=== PATIENT | male | born 1940 | race African-American/Black ===

== ENCOUNTER 2018-06-30 12:29 | Inpatient (IN) | payer MEDICARE, OTHER ==
[2018-06-30] MEDS: SOD CHLORIDE 0.9% 1,000 ML IV ×2 (13:22→19:08)
[2018-06-30 13:23] LABS: ABNORMAL IP MESSAGE 1; HEMATOCRIT 35.7 % (42.0-52.0); HEMOGLOBIN 10.1 g/dl (14.0-18.0); MEAN CORPUSCULAR HEMOGLOBIN 29.5 pg (29.0-33.0); MEAN CORPUSCULAR HGB CONC 28.3 g/dl (32.0-37.0); MEAN CORPUSCULAR VOLUME 104.4 fl (82.0-101.0); PLATELET COUNT 64 10^3/UL (140-415); POSITIVE DIFF @See below; RED BLOOD COUNT 3.42 10^6/ul (4.70-6.10); RED CELL DISTRIBUTION WIDTH 15.2 % (11.5-14.5)
[2018-06-30 13:23] LABS: WHITE BLOOD COUNT 9.8 10^3/ul (4.8-10.8)
[2018-06-30 13:27] LABS: ADD MAN DIFF? YES
[2018-06-30 13:55] LABS: ANISOCYTOSIS 1+ (0-0); BAND NEUTROPHILS #M 1.9 10^3/ul (0.0-0.6); BAND NEUTROPHILS % (M) 20 % (0-4); LYMPHOCYTES #M 0.6 10^3/ul (0.8-2.9); LYMPHOCYTES % (M) 7 % (15-51); MICROCYTOSIS 1+ (0-0); MONOCYTE #M 0.4 10^3/ul (0.3-0.9); MONOCYTES % (M) 5 % (0-11); PLATELET ESTIMATE DECREASED; PLATELET MORPHOLOGY COMMENT @See below; POIKILOCYTOSIS 1+ (0-0); POLYCHROMASIA 1+ (0-0); SEG NEUT #M 6.9 10^3/ul (1.6-7.5); SEGMENTED NEUTROPHILS (M) % 68 % (39-77); SMUDGE%M 1 % (0-0); STOMATOCYTES 1+ (0-0)
[2018-06-30 13:57] LABS: ANION GAP -1 (5-13); BLOOD UREA NITROGEN 69 mg/dl (7-20); CARBON DIOXIDE 37 mmol/L (21-31); CHLORIDE 134 mmol/L (97-110); CREATININE 1.88 mg/dl (0.61-1.24); GLUCOSE 171 mg/dl (70-220); POTASSIUM 4.1 mmol/L (3.5-5.1)
[2018-06-30 14:09] LABS: TROPONIN-I 0.024 ng/ml (0.000-0.120)
[2018-06-30 14:10] LABS: SODIUM 170 mmol/L (135-144)
[2018-06-30] MEDS ORDERED: SOD CHLORIDE 0.9% 1,000 ML IV (14:30)
[2018-06-30] MEDS ORDERED: ONDANSETRON 4 MG INJ IV (15:00)
[2018-06-30] MEDS ORDERED: ACETAMINOPHEN 325 MG TAB PO (15:00)
[2018-06-30 15:45] LABS: INR 1.15; PROTIME 14.9 Sec (11.9-14.9); PT RATIO 1.2
[2018-06-30 15:46] LABS: PARTIAL THROMBOPLASTIN TIME 38.9 Sec (23.0-35.0)
[2018-06-30] MEDS ORDERED: LORAZEPAM 2 MG INJ IV (20:00)
[2018-06-30] MEDS: IPRATROPIUM (NEB) 0.5 MG/2.5 ML AMP HHN (20:24)
[2018-06-30] MEDS: ACETAMINOPHEN 650MG/20.3ML CUP GTB (23:07)
[2018-06-30] MEDS: METOPROLOL 50 MG TAB GTB (23:42)
[2018-07-01] MEDS ORDERED: IPRATROPIUM (NEB) 0.5 MG/2.5 ML AMP HHN (01:00)
[2018-07-01] MEDS: IPRATROPIUM (NEB) 0.5 MG/2.5 ML AMP HHN ×4 (01:39→21:01)
[2018-07-01] MEDS: ACCU-CHEK XX (02:00)
[2018-07-01] MEDS: PANTOPRAZOLE 40 MG INJ IV (06:23)
[2018-07-01 06:51] LABS: ABNORMAL IP MESSAGE 1; HEMATOCRIT 34.4 % (42.0-52.0); HEMOGLOBIN 9.6 g/dl (14.0-18.0); MEAN CORPUSCULAR HEMOGLOBIN 29.2 pg (29.0-33.0); MEAN CORPUSCULAR HGB CONC 27.9 g/dl (32.0-37.0); MEAN CORPUSCULAR VOLUME 104.6 fl (82.0-101.0); PLATELET COUNT 54 10^3/UL (140-415); POSITIVE DIFF @See below; RED BLOOD COUNT 3.29 10^6/ul (4.70-6.10); RED CELL DISTRIBUTION WIDTH 15.1 % (11.5-14.5)
[2018-07-01 06:51] LABS: WHITE BLOOD COUNT 8.6 10^3/ul (4.8-10.8)
[2018-07-01 06:54] LABS: ADD MAN DIFF? YES
[2018-07-01 07:26] LABS: ANION GAP -3 (5-13); BLOOD UREA NITROGEN 64 mg/dl (7-20); CALCIUM 9.2 mg/dl (8.4-10.2); CARBON DIOXIDE 33 mmol/L (21-31); CHLORIDE 142 mmol/L (97-110); CREATININE 1.64 mg/dl (0.61-1.24); GLUCOSE 92 mg/dl (70-220); POTASSIUM 3.9 mmol/L (3.5-5.1)
[2018-07-01 07:28] LABS: B-TYPE NATRIURETIC PEPTIDE 530 PG/ML (0-450)
[2018-07-01 07:29] LABS: SODIUM 172 mmol/L (135-144)
[2018-07-01 08:03] LABS: ANISOCYTOSIS 1+ (0-0); BAND NEUTROPHILS #M 2.4 10^3/ul (0.0-0.6); BAND NEUTROPHILS % (M) 28 % (0-4); EOSINOPHILS % (M) 1 % (0-7); ERYTHROBLAST% (NRBC) (M) 2 % (0-0); GIANT THROMBO% (M) 2 % (0-0); LYMPHOCYTES #M 1.3 10^3/ul (0.8-2.9); LYMPHOCYTES % (M) 16 % (15-51); MONOCYTE #M 0.1 10^3/ul (0.3-0.9); MONOCYTES % (M) 2 % (0-11); PLATELET ESTIMATE DECREASED; REACTIVE LYMPHOCYTES% (M) 1 % (0-0); SEG NEUT #M 4.7 10^3/ul (1.6-7.5); SEGMENTED NEUTROPHILS (M) % 52 % (39-77); SMUDGE%M 1 % (0-0)
[2018-07-01] MEDS: CHOLECALCIFEROL 1,000 UNIT TAB PO (09:25)
[2018-07-01] MEDS: SOD CHLORIDE 0.9% 1,000 ML IV (09:25)
[2018-07-01] MEDS: predniSONE 5 MG TAB PO (09:25)
[2018-07-01] MEDS: MULTIVITAMINS THERAPEUTIC TAB PO (09:25)
[2018-07-01] MEDS: DONEPEZIL 10 MG TAB PO (09:26)
[2018-07-01] MEDS: METOPROLOL 25 MG TAB PO ×2 (09:26→21:46)
[2018-07-01] MEDS: INSULIN ASPART [NOVOLOG] 3 ML PEN SC ×4 (09:29→21:00)
[2018-07-01] MEDS: INSULIN GLARGINE [LANTus] (100 UNITS/ML) SYG SC (09:30)
[2018-07-01] MEDS ORDERED: VITAMIN A & D 5 GM OINT PACKET TOP (10:34)
[2018-07-01] MEDS: DEXTROSE 5% 1,000 ML IV (11:55)
[2018-07-01 13:55] LABS: CREATININE,URINE RANDOM 74.24 mg/dl (20-370)
[2018-07-01 13:58] LABS: SODIUM,URINE RANDOM < 13 mmol/L (30-90)
[2018-07-01 14:34] LABS: OSMOLALITY,URINE 513 mOsm/kg (250-1200)
[2018-07-01 18:27] LABS: ANION GAP -2 (5-13); BLOOD UREA NITROGEN 58 mg/dl (7-20); CALCIUM 9.2 mg/dl (8.4-10.2); CARBON DIOXIDE 34 mmol/L (21-31); CHLORIDE 140 mmol/L (97-110); GLUCOSE 135 mg/dl (70-220); POTASSIUM 3.6 mmol/L (3.5-5.1)
[2018-07-01 18:39] LABS: SODIUM 172 mmol/L (135-144)
[2018-07-01] MEDS: SENNA TAB PO (21:46)
[2018-07-02] MEDS: ACCU-CHEK XX (02:00)
[2018-07-02] MEDS: IPRATROPIUM (NEB) 0.5 MG/2.5 ML AMP HHN ×2 (02:42→07:52)
[2018-07-02 05:33] LABS: WHITE BLOOD COUNT 8.3 10^3/ul (4.8-10.8)
[2018-07-02 05:33] LABS: ABNORMAL IP MESSAGE 1; HEMATOCRIT 33.4 % (42.0-52.0); HEMOGLOBIN 9.2 g/dl (14.0-18.0); MEAN CORPUSCULAR HEMOGLOBIN 28.7 pg (29.0-33.0); MEAN CORPUSCULAR HGB CONC 27.5 g/dl (32.0-37.0); POSITIVE DIFF @See below; RED BLOOD COUNT 3.21 10^6/ul (4.70-6.10); RED CELL DISTRIBUTION WIDTH 14.9 % (11.5-14.5)
[2018-07-02 05:34] LABS: PLATELET COUNT 68 10^3/UL (140-415)
[2018-07-02 05:35] LABS: ADD MAN DIFF? YES
[2018-07-02 06:07] LABS: B-TYPE NATRIURETIC PEPTIDE 832 PG/ML (0-450)
[2018-07-02 06:16] LABS: ANION GAP -5 (5-13); BLOOD UREA NITROGEN 54 mg/dl (7-20); CALCIUM 9.7 mg/dl (8.4-10.2); CARBON DIOXIDE 38 mmol/L (21-31); CHLORIDE 140 mmol/L (97-110); CREATININE 1.78 mg/dl (0.61-1.24); GLUCOSE 123 mg/dl (70-220); POTASSIUM 3.2 mmol/L (3.5-5.1)
[2018-07-02 06:19] LABS: SODIUM 173 mmol/L (135-144)
[2018-07-02] MEDS: PANTOPRAZOLE 40 MG INJ IV (06:58)
[2018-07-02] MEDS ORDERED: ETOMIDATE 20 MG INJ (07:00)
[2018-07-02] MEDS ORDERED: SUCCINYLCHOLINE CHLORIDE 100 MG/5 ML SYG IV (07:00)
[2018-07-02 07:38] LABS: ANISOCYTOSIS 1+ (0-0); BAND NEUTROPHILS #M 0.3 10^3/ul (0.0-0.6); BAND NEUTROPHILS % (M) 4 % (0-4); LYMPHOCYTES #M 1.7 10^3/ul (0.8-2.9); LYMPHOCYTES % (M) 21 % (15-51); MICROCYTOSIS 1+ (0-0); MONOCYTES % (M) 1 % (0-11); PLATELET ESTIMATE DECREASED; POLYCHROMASIA 2+ (0-0); SEG NEUT #M 6.2 10^3/ul (1.6-7.5); SEGMENTED NEUTROPHILS (M) % 74 % (39-77); SMUDGE%M 35 % (0-0)
[2018-07-02] MEDS: DEXTROSE 5% 1,000 ML IV ×2 (08:07→22:26)
[2018-07-02] MEDS: INSULIN ASPART [NOVOLOG] 3 ML PEN SC ×5 (08:10→23:55)
[2018-07-02] MEDS: INSULIN GLARGINE [LANTus] (100 UNITS/ML) SYG SC (08:16)
[2018-07-02] MEDS: ACETAMINOPHEN 650MG/20.3ML CUP GTB (08:35)
[2018-07-02] MEDS: DONEPEZIL 10 MG TAB PO (08:36)
[2018-07-02] MEDS: MULTIVITAMINS THERAPEUTIC TAB PO (08:36)
[2018-07-02] MEDS: predniSONE 5 MG TAB PO (08:36)
[2018-07-02] MEDS: CHOLECALCIFEROL 1,000 UNIT TAB PO (08:36)
[2018-07-02] MEDS: METOPROLOL 25 MG TAB PO (08:39)
[2018-07-02 11:34] LABS: MAGNESIUM 3.3 mg/dl (1.7-2.5)
[2018-07-02 11:35] LABS: ALANINE AMINOTRANSFERASE 52 IU/L (13-69); ALBUMIN 2.7 g/dl (3.3-4.9); ALKALINE PHOSPHATASE 128 IU/L (42-121); ASPARTATE AMINO TRANSFERASE 53 IU/L (15-46); BILIRUBIN,INDIRECT 0.3 mg/dl (0-1.1); BILIRUBIN,TOTAL 0.3 mg/dl (0.2-1.3); TOTAL PROTEIN 6.6 g/dl (6.1-8.1)
[2018-07-02] MEDS ORDERED: CEFTRIAXONE 1 GM/50 ML (PMX) 50 ML IVPB (12:00)
[2018-07-02] MEDS ORDERED: VANCOMYCIN IV PER PHARMACY XX (12:00)
[2018-07-02 12:21] LABS: CHOLESTEROL 136 mg/dl (100-200)
[2018-07-02 12:21] LABS: CHOL/HDL RATIO 4.6 RATIO; HDL CHOLESTEROL 29 mg/dl (31-75); LDL CHOLESTEROL,CALCULATED 84 mg/dl; TRIGLYCERIDES 115 mg/dl (0-149)
[2018-07-02] MEDS ORDERED: HEPARIN 5,000 UNIT/0.5 ML VIAL SC (13:00)
[2018-07-02] MEDS: PIPER-TAZO 2.25 GM (PMX) 50 ML IVPB ×3 (13:13→23:52)
[2018-07-02] MEDS: POTASSIUM CHLORIDE 100 ML IVPB ×2 (13:13→15:45)
[2018-07-02] MEDS ORDERED: METHYLPREDNISOLONE 125 MG INJ (13:41)
[2018-07-02] MEDS: hydrALAzine 20 MG INJ IV (13:51)
[2018-07-02] MEDS: METHYLPREDNISOLONE 125 MG INJ IV (13:53)
[2018-07-02] MEDS ORDERED: VANCOMYCIN 1.5 GM in SOD CHLORIDE 0.9% 250 ML IVPB (14:00)
[2018-07-02] MEDS ORDERED: PIPER-TAZO 3.375 GM IV (PMX) 100 ML IVPB (14:00)
[2018-07-02 14:09] LABS: AADO2 Arterial 144.1 mmHg (7.0-24.0); Allen Test ACCEPTAB; Arterial Base Excess 5.1 mmol/L (-3.0-3); Arterial Blood Gas Oxygen Sat 91.2 mmHG (95.0-100.0); Arterial COHb 0.4 % (0.0-3.0); Arterial Fraction of Oxyhgb 90.6 % (93.0-99.0); Arterial HCO3 39.1 mmol/L (22.0-26.0); Arterial MetHb 0.3 % (0.0-1.5); Arterial Total Hemglobin 12.4 g/dl (12.0-18.0); Arterial pCO2 133.9 mmhg (35-45); MODE MASK - BIPAP; Site Left Radial
[2018-07-02] MEDS: LACTATED RINGER'S 1,000 ML IV ×2 (14:30→17:59)
[2018-07-02] MEDS ORDERED: FENTAnyl 50 MCG/ML VIAL (14:37)
[2018-07-02] MEDS ORDERED: NORepinephrine 8MG/250 ML (PMX 250 ML (15:03)
[2018-07-02 15:26] LABS: ALANINE AMINOTRANSFERASE 42 IU/L (13-69); ALBUMIN 2.5 g/dl (3.3-4.9); ALBUMIN/GLOBULIN RATIO 0.71; ALKALINE PHOSPHATASE 108 IU/L (42-121); ANION GAP -4 (5-13); ASPARTATE AMINO TRANSFERASE 42 IU/L (15-46); BILIRUBIN,INDIRECT 0.4 mg/dl (0-1.1); BILIRUBIN,TOTAL 0.4 mg/dl (0.2-1.3); BLOOD UREA NITROGEN 53 mg/dl (7-20); CALCIUM 9.2 mg/dl (8.4-10.2); CARBON DIOXIDE 36 mmol/L (21-31); CHLORIDE 137 mmol/L (97-110); CREATININE 2.05 mg/dl (0.61-1.24); GLUCOSE 162 mg/dl (70-220); POTASSIUM 3.8 mmol/L (3.5-5.1)
[2018-07-02 15:28] LABS: SODIUM 169 mmol/L (135-144)
[2018-07-02] MEDS: LACTATED RINGER'S 500 ML IV ×3 (15:30→16:41)
[2018-07-02 15:32] LABS: LACTIC ACID 2.4 mmol/L (0.5-2.0)
[2018-07-02] MEDS: FENTAnyl (DRIP) 1000 mcg/100mL 100 ML IV (15:36)
[2018-07-02] MEDS: FENTAnyl 50 MCG/ML VIAL IV (15:40)
[2018-07-02] MEDS: HYDROCORTISONE 100 MG INJ IV ×2 (15:45→21:30)
[2018-07-02 15:48] LABS: CREATINE KINASE 429 IU/L (23-200)
[2018-07-02 16:02] LABS: CK INDEX 0.4; CK-MB 1.92 ng/ml (0.0-2.4); TROPONIN-I 0.036 ng/ml (0.000-0.120)
[2018-07-02 16:53] LABS: AADO2 Arterial 532.3 mmHg (7.0-24.0); Allen Test ACCEPTAB; Arterial Base Excess 4.8 mmol/L (-3.0-3); Arterial Blood Gas Oxygen Sat 98.5 mmHG (95.0-100.0); Arterial COHb 0.2 % (0.0-3.0); Arterial Fraction of Oxyhgb 97.5 % (93.0-99.0); Arterial HCO3 28.9 mmol/L (22.0-26.0); Arterial MetHb 0.8 % (0.0-1.5); Arterial Total Hemglobin 5.4 g/dl (12.0-18.0); Arterial pCO2 40.3 mmhg (35-45); MODE VENT - AC; Site Right Radial
[2018-07-02] MEDS: NORepinephrine 8MG/250 ML (PMX 250 ML IV (18:46)
[2018-07-02] MEDS: IPRATROPIUM (HFA) 12.9 GM INHALER INH (20:35)
[2018-07-02 20:46] LABS: LACTIC ACID 1.6 mmol/L (0.5-2.0)
[2018-07-02 20:55] LABS: ANION GAP -3 (5-13); BLOOD UREA NITROGEN 55 mg/dl (7-20); CALCIUM 9.4 mg/dl (8.4-10.2); CARBON DIOXIDE 33 mmol/L (21-31); CHLORIDE 135 mmol/L (97-110); CREATININE 1.86 mg/dl (0.61-1.24); GLUCOSE 163 mg/dl (70-220); POTASSIUM 3.5 mmol/L (3.5-5.1)
[2018-07-02 20:58] LABS: SODIUM 165 mmol/L (135-144)
[2018-07-02] MEDS: SENNA TAB PO (21:09)
[2018-07-02] MEDS ORDERED: GLUCOSE GEL 15 GRAM TUBE BUCCAL (22:30)
[2018-07-02] MEDS ORDERED: DEXTROSE 50% 50 ML SYRINGE IV (22:30)
[2018-07-02] MEDS ORDERED: GLUCAGON 1 MG INJ IM (22:30)
[2018-07-02] MEDS ORDERED: GLUCOSE GEL 15 GRAM TUBE PO ×2 (22:30)
[2018-07-03] MEDS: FENTAnyl (DRIP) 1000 mcg/100mL 100 ML IV ×2 (00:02→11:18)
[2018-07-03] MEDS: IPRATROPIUM (HFA) 12.9 GM INHALER INH ×4 (01:48→19:51)
[2018-07-03] MEDS ORDERED: ACCU-CHEK XX (02:00)
[2018-07-03 05:00] LABS: AADO2 Arterial 191.1 mmHg (7.0-24.0); Allen Test ACCEPTAB; Arterial Base Excess 3.9 mmol/L (-3.0-3); Arterial Blood Gas Oxygen Sat 92.6 mmHG (95.0-100.0); Arterial COHb 0.3 % (0.0-3.0); Arterial HCO3 26.6 mmol/L (22.0-26.0); Arterial MetHb 0.3 % (0.0-1.5); Arterial Total Hemglobin 8.1 g/dl (12.0-18.0); Arterial pCO2 32.2 mmhg (35-45); MODE VENT - AC; Site Right Radial
[2018-07-03 05:16] LABS: WHITE BLOOD COUNT 8.4 10^3/ul (4.8-10.8)
[2018-07-03 05:16] LABS: ABNORMAL IP MESSAGE 1; HEMATOCRIT 25.9 % (42.0-52.0); HEMOGLOBIN 7.6 g/dl (14.0-18.0); MEAN CORPUSCULAR HEMOGLOBIN 29.6 pg (29.0-33.0); MEAN CORPUSCULAR HGB CONC 29.3 g/dl (32.0-37.0); MEAN CORPUSCULAR VOLUME 100.8 fl (82.0-101.0); MEAN PLATELET VOLUME 15.6 fl (7.4-10.4); PLATELET COUNT 64 10^3/UL (140-415); POSITIVE DIFF @See below; RED BLOOD COUNT 2.57 10^6/ul (4.70-6.10); RED CELL DISTRIBUTION WIDTH 14.8 % (11.5-14.5)
[2018-07-03 05:21] LABS: ADD MAN DIFF? YES
[2018-07-03 05:34] LABS: PROTIME 15.4 Sec (11.9-14.9); PT RATIO 1.2
[2018-07-03 05:35] LABS: PARTIAL THROMBOPLASTIN TIME 42.8 Sec (23.0-35.0)
[2018-07-03 05:47] LABS: MAGNESIUM 2.9 mg/dl (1.7-2.5)
[2018-07-03 05:47] LABS: PHOSPHORUS 2.3 mg/dl (2.5-4.9)
[2018-07-03 05:54] LABS: LACTIC ACID 2.6 mmol/L (0.5-2.0)
[2018-07-03 05:56] LABS: FREE THYROXINE INDEX (Calc) 3.81 ug/ml (0.65-3.89); T3 UPTAKE 42.3 % (23.5-40.5)
[2018-07-03] MEDS: INSULIN ASPART [NOVOLOG] 3 ML PEN SC ×4 (06:00→23:34)
[2018-07-03] MEDS: PIPER-TAZO 2.25 GM (PMX) 50 ML IVPB ×4 (06:02→23:32)
[2018-07-03] MEDS: HYDROCORTISONE 100 MG INJ IV ×3 (06:02→21:06)
[2018-07-03] MEDS: PANTOPRAZOLE 40 MG INJ IV (06:02)
[2018-07-03 06:03] LABS: ALANINE AMINOTRANSFERASE 39 IU/L (13-69); ALBUMIN 2.3 g/dl (3.3-4.9); ALBUMIN/GLOBULIN RATIO 0.67; ALKALINE PHOSPHATASE 98 IU/L (42-121); ANION GAP 2 (5-13); ASPARTATE AMINO TRANSFERASE 35 IU/L (15-46); BILIRUBIN,INDIRECT 0.6 mg/dl (0-1.1); BILIRUBIN,TOTAL 0.6 mg/dl (0.2-1.3); BLOOD UREA NITROGEN 55 mg/dl (7-20); CALCIUM 9.4 mg/dl (8.4-10.2); CARBON DIOXIDE 29 mmol/L (21-31); CHLORIDE 135 mmol/L (97-110); CREATININE 1.89 mg/dl (0.61-1.24); GLUCOSE 199 mg/dl (70-220); POTASSIUM 3.2 mmol/L (3.5-5.1); TOTAL PROTEIN 5.7 g/dl (6.1-8.1)
[2018-07-03 06:04] LABS: CK-MB 1.01 ng/ml (0.0-2.4); TROPONIN-I 0.051 ng/ml (0.000-0.120)
[2018-07-03 06:11] LABS: SODIUM 166 mmol/L (135-144)
[2018-07-03 06:32] LABS: CK INDEX 0.4; CREATINE KINASE 246 IU/L (23-200)
[2018-07-03 07:14] LABS: ANISOCYTOSIS 1+ (0-0); BAND NEUTROPHILS #M 0.7 10^3/ul (0.0-0.6); BAND NEUTROPHILS % (M) 9 % (0-4); ERYTHROBLAST% (NRBC) (M) 1 % (0-0); GIANT THROMBO% (M) 1 % (0-0); LYMPHOCYTES #M 0.5 10^3/ul (0.8-2.9); LYMPHOCYTES % (M) 7 % (15-51); MONOCYTE #M 0.1 10^3/ul (0.3-0.9); MONOCYTES % (M) 2 % (0-11); PLATELET ESTIMATE DECREASED; POLYCHROMASIA 1+ (0-0); SEG NEUT #M 6.9 10^3/ul (1.6-7.5); SEGMENTED NEUTROPHILS (M) % 82 % (39-77); SMUDGE%M 29 % (0-0)
[2018-07-03] MEDS: DEXTROSE 5% 1,000 ML IV ×5 (08:00→23:48)
[2018-07-03] MEDS: POTASSIUM PHOSPHATE 30 MM in SOD CHLORIDE 0.9% 250 ML IVPB (08:08)
[2018-07-03] MEDS: DONEPEZIL 10 MG TAB PO (08:09)
[2018-07-03] MEDS: CHOLECALCIFEROL 1,000 UNIT TAB PO (08:09)
[2018-07-03] MEDS: PATIENT'S OWN MEDICATION PO (08:09)
[2018-07-03] MEDS: MULTIVITAMINS THERAPEUTIC TAB PO (08:09)
[2018-07-03] MEDS: INSULIN GLARGINE [LANTus] (100 UNITS/ML) SYG SC (08:30)
[2018-07-03] MEDS ORDERED: NON-FORMULARY/PATIENT OWN MED (Abiraterone Acetate (Zytiga) 1,000 MG) PO (09:00)
[2018-07-03] MEDS: LACTATED RINGER'S 500 ML IV (11:21)
[2018-07-03] MEDS ORDERED: VANCOMYCIN 1 GM 250 ML IVPB (14:00)
[2018-07-03 14:44] LABS: ANION GAP 2 (5-13); BLOOD UREA NITROGEN 57 mg/dl (7-20); CALCIUM 8.9 mg/dl (8.4-10.2); CARBON DIOXIDE 29 mmol/L (21-31); CHLORIDE 135 mmol/L (97-110); CREATININE 1.89 mg/dl (0.61-1.24); GLUCOSE 160 mg/dl (70-220); MAGNESIUM 2.9 mg/dl (1.7-2.5); POTASSIUM 3.6 mmol/L (3.5-5.1)
[2018-07-03 14:52] LABS: SODIUM 166 mmol/L (135-144)
[2018-07-03 14:54] LABS: LACTIC ACID 2.2 mmol/L (0.5-2.0)
[2018-07-03 15:05] LABS: PHOSPHORUS 5.5 mg/dl (2.5-4.9)
[2018-07-03] MEDS: MUPIROCIN 2% 22 GM OINT TOP (21:06)
[2018-07-03] MEDS: SENNA TAB PO (21:06)
[2018-07-04] MEDS: FENTAnyl (DRIP) 1000 mcg/100mL 100 ML IV ×2 (00:23→16:32)
[2018-07-04] MEDS: IPRATROPIUM (HFA) 12.9 GM INHALER INH ×4 (01:49→19:10)
[2018-07-04 05:22] LABS: Allen Test ACCEPTAB; Arterial Base Excess 2.6 mmol/L (-3.0-3); Arterial COHb 0.1 % (0.0-3.0); Arterial Fraction of Oxyhgb 97.5 % (93.0-99.0); Arterial HCO3 27.8 mmol/L (22.0-26.0); Arterial MetHb 0.4 % (0.0-1.5); Arterial Total Hemglobin 8.2 g/dl (12.0-18.0); Arterial pCO2 46.5 mmhg (35-45); MODE VENT - AC; Site Right Radial
[2018-07-04 05:23] LABS: ADD MAN DIFF? NO
[2018-07-04 05:38] LABS: ABNORMAL IP MESSAGE 1; HEMATOCRIT 24.6 % (42.0-52.0); HEMOGLOBIN 7.1 g/dl (14.0-18.0); MEAN CORPUSCULAR HEMOGLOBIN 29.3 pg (29.0-33.0); MEAN CORPUSCULAR HGB CONC 28.9 g/dl (32.0-37.0); MEAN CORPUSCULAR VOLUME 101.7 fl (82.0-101.0); PLATELET COUNT 64 10^3/UL (140-415); POSITIVE DIFF @See below; RED BLOOD COUNT 2.42 10^6/ul (4.70-6.10); RED CELL DISTRIBUTION WIDTH 14.8 % (11.5-14.5)
[2018-07-04 05:38] LABS: WHITE BLOOD COUNT 7.9 10^3/ul (4.8-10.8)
[2018-07-04 05:56] LABS: ALANINE AMINOTRANSFERASE 38 IU/L (13-69); ALBUMIN 2.1 g/dl (3.3-4.9); ALBUMIN/GLOBULIN RATIO 0.67; ALKALINE PHOSPHATASE 84 IU/L (42-121); ANION GAP 6 (5-13); ASPARTATE AMINO TRANSFERASE 25 IU/L (15-46); BILIRUBIN,INDIRECT 0.2 mg/dl (0-1.1); BILIRUBIN,TOTAL 0.2 mg/dl (0.2-1.3); BLOOD UREA NITROGEN 57 mg/dl (7-20); CALCIUM 8.8 mg/dl (8.4-10.2); CARBON DIOXIDE 27 mmol/L (21-31); CHLORIDE 127 mmol/L (97-110); CREATININE 1.77 mg/dl (0.61-1.24); GLUCOSE 199 mg/dl (70-220); POTASSIUM 3.3 mmol/L (3.5-5.1); SODIUM 160 mmol/L (135-144); TOTAL PROTEIN 5.2 g/dl (6.1-8.1)
[2018-07-04 05:58] LABS: MAGNESIUM 2.9 mg/dl (1.7-2.5)
[2018-07-04 05:58] LABS: PHOSPHORUS 4.4 mg/dl (2.5-4.9)
[2018-07-04] MEDS: DEXTROSE 5% 1,000 ML IV ×4 (06:00→23:43)
[2018-07-04] MEDS: PANTOPRAZOLE 40 MG INJ IV (06:08)
[2018-07-04] MEDS: PIPER-TAZO 2.25 GM (PMX) 50 ML IVPB ×4 (06:08→23:40)
[2018-07-04] MEDS: HYDROCORTISONE 100 MG INJ IV (06:09)
[2018-07-04] MEDS: INSULIN ASPART [NOVOLOG] 3 ML PEN SC ×4 (06:15→23:43)
[2018-07-04] MEDS: POTASSIUM CHLORIDE 100 ML IVPB ×2 (08:11→10:25)
[2018-07-04] MEDS: CHOLECALCIFEROL 1,000 UNIT TAB PO (09:02)
[2018-07-04] MEDS: MUPIROCIN 2% 22 GM OINT TOP ×2 (09:02→21:21)
[2018-07-04] MEDS: MULTIVITAMINS THERAPEUTIC TAB PO (09:02)
[2018-07-04] MEDS: PATIENT'S OWN MEDICATION PO (09:02)
[2018-07-04] MEDS: DONEPEZIL 10 MG TAB PO (09:02)
[2018-07-04] MEDS: INSULIN GLARGINE [LANTus] (100 UNITS/ML) SYG SC (09:05)
[2018-07-04 09:06] LABS: ANISOCYTOSIS 2+ (0-0); BAND NEUTROPHILS #M 0.9 10^3/ul (0.0-0.6); BAND NEUTROPHILS % (M) 12 % (0-4); BURR CELLS 1+ (0-0); LYMPHOCYTES #M 0.5 10^3/ul (0.8-2.9); LYMPHOCYTES % (M) 7 % (15-51); MICROCYTOSIS 1+ (0-0); MONOCYTE #M 0.3 10^3/ul (0.3-0.9); MONOCYTES % (M) 4 % (0-11); PLATELET ESTIMATE SIG DECREASED; POIKILOCYTOSIS 1+ (0-0); POLYCHROMASIA 3+ (0-0); SEG NEUT #M 6.2 10^3/ul (1.6-7.5); SEGMENTED NEUTROPHILS (M) % 77 % (39-77)
[2018-07-04 11:29] LABS: OSMOLALITY 354 mOsm/kg (280-295)
[2018-07-04 11:55] LABS: AADO2 Arterial 126.1 mmHg (7.0-24.0); Allen Test ACCEPTAB; Arterial Base Excess 2.6 mmol/L (-3.0-3); Arterial Blood Gas Oxygen Sat 97.7 mmHG (95.0-100.0); Arterial COHb 0.3 % (0.0-3.0); Arterial HCO3 27.8 mmol/L (22.0-26.0); Arterial MetHb 0.4 % (0.0-1.5); Arterial Total Hemglobin 8.9 g/dl (12.0-18.0); Blood Gas PS 10; MODE VENT - CPAP; Site Left Radial
[2018-07-04 12:45] LABS: IRON 54 ug/dl (35-150)
[2018-07-04 12:55] LABS: % IRON SATURATION 30 % SAT (22-52); TOTAL IRON BINDING CAPACITY 178 ug/dl (241-421)
[2018-07-04 13:28] LABS: FOLATE > 20.0 ng/ml (2.8-20.0)
[2018-07-04] MEDS: ALBUMIN HUMAN 25% 100 ML IV (13:34)
[2018-07-04 14:26] LABS: IMMEDIATE SPIN CROSSMATCH 1 1
[2018-07-04] MEDS ORDERED: HEPARIN 5,000 UNIT/0.5 ML VIAL SC (21:00)
[2018-07-04] MEDS: SENNA TAB PO (21:21)
[2018-07-04] MEDS ORDERED: HEPARIN SODIUM 5,000 UNIT/ML VIAL SC (22:12)
[2018-07-04] MEDS ORDERED: HEPARIN 5,000 UNIT/0.5 ML VIAL (22:15)
[2018-07-04] MEDS: HEPARIN SODIUM 5,000 UNIT/ML VIAL SC (22:22)
[2018-07-05] MEDS: IPRATROPIUM (HFA) 12.9 GM INHALER INH ×4 (01:02→20:49)
[2018-07-05] MEDS: DEXTROSE 5% 1,000 ML IV ×2 (03:42→20:00)
[2018-07-05] MEDS: PIPER-TAZO 2.25 GM (PMX) 50 ML IVPB (05:12)
[2018-07-05] MEDS: PANTOPRAZOLE 40 MG INJ IV (05:12)
[2018-07-05] MEDS: INSULIN ASPART [NOVOLOG] 3 ML PEN SC ×3 (05:14→17:58)
[2018-07-05 05:16] LABS: ADD MAN DIFF? NO
[2018-07-05 05:20] LABS: WHITE BLOOD COUNT 5.8 10^3/ul (4.8-10.8)
[2018-07-05 05:20] LABS: ABNORMAL IP MESSAGE 1; EOSINOPHILS % 0.5 % (0.0-7.0); HEMATOCRIT 28.3 % (42.0-52.0); HEMOGLOBIN 8.4 g/dl (14.0-18.0); LYMPHOCYTES % 16.6 % (15.0-51.0); MEAN CORPUSCULAR HEMOGLOBIN 28.7 pg (29.0-33.0); MEAN CORPUSCULAR HGB CONC 29.7 g/dl (32.0-37.0); MEAN CORPUSCULAR VOLUME 96.6 fl (82.0-101.0); MONOCYTE # 0.3 10^3/ul (0.3-0.9); MONOCYTES % 5.2 % (0.0-11.0); NEUTROPHIL # 4.5 10^3/ul (1.6-7.5); NUCLEATED RED BLOOD CELLS% 0.3 /100WBC (0.0-0.0); PLATELET COUNT 60 10^3/UL (140-415); POSITIVE DIFF @See below; RED BLOOD COUNT 2.93 10^6/ul (4.70-6.10); RED CELL DISTRIBUTION WIDTH 16.5 % (11.5-14.5)
[2018-07-05 05:49] LABS: ANION GAP 1 (5-13); BLOOD UREA NITROGEN 45 mg/dl (7-20); CALCIUM 8.6 mg/dl (8.4-10.2); CARBON DIOXIDE 30 mmol/L (21-31); CHLORIDE 125 mmol/L (97-110); CREATININE 1.48 mg/dl (0.61-1.24); GLUCOSE 132 mg/dl (70-220); MAGNESIUM 2.8 mg/dl (1.7-2.5); POTASSIUM 3.2 mmol/L (3.5-5.1); SODIUM 156 mmol/L (135-144)
[2018-07-05 07:18] LABS: AADO2 Arterial 134.1 mmHg (7.0-24.0); Allen Test ACCEPTAB; Arterial Base Excess 3.5 mmol/L (-3.0-3); Arterial Blood Gas Oxygen Sat 97.2 mmHG (95.0-100.0); Arterial COHb 0.3 % (0.0-3.0); Arterial Fraction of Oxyhgb 96.7 % (93.0-99.0); Arterial HCO3 28.5 mmol/L (22.0-26.0); Arterial MetHb 0.2 % (0.0-1.5); Arterial Total Hemglobin 9.6 g/dl (12.0-18.0); Arterial pCO2 44.9 mmhg (35-45); MODE VENT - AC; Site Right Radial
[2018-07-05] MEDS ORDERED: HEPARIN 5,000 UNIT/0.5 ML VIAL (08:13)
[2018-07-05] MEDS: PATIENT'S OWN MEDICATION PO (08:20)
[2018-07-05] MEDS: DONEPEZIL 10 MG TAB PO (08:20)
[2018-07-05] MEDS: MULTIVITAMINS THERAPEUTIC TAB PO (08:20)
[2018-07-05] MEDS: CHOLECALCIFEROL 1,000 UNIT TAB PO (08:20)
[2018-07-05] MEDS: MUPIROCIN 2% 22 GM OINT TOP ×3 (08:21→20:40)
[2018-07-05] MEDS: INSULIN GLARGINE [LANTus] (100 UNITS/ML) SYG SC (08:26)
[2018-07-05] MEDS: HEPARIN SODIUM 5,000 UNIT/ML VIAL SC (08:27)
[2018-07-05] MEDS ORDERED: VANCOMYCIN IV PER PHARMACY XX (11:30)
[2018-07-05] MEDS: POTASSIUM CHLORIDE 50 ML IVPB ×3 (11:32→15:08)
[2018-07-05] MEDS: MEROPENEM 500MG/50 ML (PMX) 50 ML IVPB ×2 (13:40→20:40)
[2018-07-05 13:54] LABS: RETICULOCYTE RBC 2.98
[2018-07-05 13:54] LABS: IRON 45 ug/dl (35-150); RETICULOCYTE COUNT # 0.008 X10^6 (0.020-0.110); RETICULOCYTE COUNT % 0.3 % (0.5-1.5)
[2018-07-05 14:04] LABS: % IRON SATURATION 26 % SAT (22-52); TOTAL IRON BINDING CAPACITY 174 ug/dl (241-421)
[2018-07-05 14:56] LABS: PROSTATE SPECIFIC ANTIGEN 15.8 ng/ml (0.0-4.0)
[2018-07-05] MEDS: VANCOMYCIN 1.5 GM in SOD CHLORIDE 0.9% 250 ML IVPB (15:08)
[2018-07-05] MEDS: DEXTROSE 50% 50 ML SYRINGE IV (18:00)
[2018-07-05] MEDS: SENNA TAB PO (20:40)
[2018-07-05] MEDS: FENTAnyl (DRIP) 1000 mcg/100mL 100 ML IV (20:48)
[2018-07-06] MEDS: IPRATROPIUM (HFA) 12.9 GM INHALER INH ×4 (01:53→20:08)
[2018-07-06] MEDS: DEXTROSE 5% 1,000 ML IV ×2 (04:38→16:00)
[2018-07-06 05:45] LABS: WHITE BLOOD COUNT 7.5 10^3/ul (4.8-10.8)
[2018-07-06 05:45] LABS: ABNORMAL IP MESSAGE 1; HEMATOCRIT 30.5 % (42.0-52.0); HEMOGLOBIN 9.3 g/dl (14.0-18.0); MEAN CORPUSCULAR HEMOGLOBIN 29.1 pg (29.0-33.0); MEAN CORPUSCULAR HGB CONC 30.5 g/dl (32.0-37.0); MEAN CORPUSCULAR VOLUME 95.3 fl (82.0-101.0); NUCLEATED RED BLOOD CELLS% 0.5 /100WBC (0.0-0.0); PLATELET COUNT 79 10^3/UL (140-415); POSITIVE DIFF @See below; RED CELL DISTRIBUTION WIDTH 15.8 % (11.5-14.5)
[2018-07-06] MEDS: PANTOPRAZOLE 40 MG INJ IV (05:58)
[2018-07-06] MEDS: INSULIN ASPART [NOVOLOG] 3 ML PEN SC ×4 (06:00→18:00)
[2018-07-06 06:01] LABS: ADD MAN DIFF? YES
[2018-07-06 06:26] LABS: ANION GAP 1 (5-13); BLOOD UREA NITROGEN 30 mg/dl (7-20); CALCIUM 8.3 mg/dl (8.4-10.2); CARBON DIOXIDE 30 mmol/L (21-31); CHLORIDE 127 mmol/L (97-110); CREATININE 1.05 mg/dl (0.61-1.24); GLUCOSE 64 mg/dl (70-220); POTASSIUM 3.3 mmol/L (3.5-5.1)
[2018-07-06 06:39] LABS: SODIUM 158 mmol/L (135-144)
[2018-07-06 07:51] LABS: BAND NEUTROPHILS #M 0.3 10^3/ul (0.0-0.6); BAND NEUTROPHILS % (M) 5 % (0-4); GIANT THROMBO% (M) 1 % (0-0); LYMPHOCYTES #M 1.5 10^3/ul (0.8-2.9); LYMPHOCYTES % (M) 21 % (15-51); MONOCYTE #M 0.3 10^3/ul (0.3-0.9); MONOCYTES % (M) 4 % (0-11); PLATELET ESTIMATE DECREASED; POLYCHROMASIA 3+ (0-0); SEG NEUT #M 5.3 10^3/ul (1.6-7.5); SEGMENTED NEUTROPHILS (M) % 70 % (39-77); SMUDGE%M 4 % (0-0)
[2018-07-06] MEDS: DONEPEZIL 10 MG TAB PO (08:55)
[2018-07-06] MEDS: MULTIVITAMINS THERAPEUTIC TAB PO (08:55)
[2018-07-06] MEDS: MUPIROCIN 2% 22 GM OINT TOP ×2 (08:56→21:26)
[2018-07-06] MEDS: PATIENT'S OWN MEDICATION PO (09:00)
[2018-07-06] MEDS: MEROPENEM 500MG/50 ML (PMX) 50 ML IVPB (10:37)
[2018-07-06] MEDS: CHOLECALCIFEROL 1,000 UNIT TAB PO (10:37)
[2018-07-06 12:28] LABS: AADO2 Arterial 103.4 mmHg (7.0-24.0); Allen Test ACCEPTAB; Arterial Base Excess 2.5 mmol/L (-3.0-3); Arterial Blood Gas Oxygen Sat 93.3 mmHG (95.0-100.0); Arterial COHb 0.3 % (0.0-3.0); Arterial Fraction of Oxyhgb 92.7 % (93.0-99.0); Arterial HCO3 26.8 mmol/L (22.0-26.0); Arterial MetHb 0.3 % (0.0-1.5); Arterial Total Hemglobin 9.9 g/dl (12.0-18.0); Arterial pCO2 40.3 mmhg (35-45); Blood Gas PS 10; MODE VENT - CPAP; Site Right Radial
[2018-07-06] MEDS: POTASSIUM CHLORIDE 50 ML IVPB ×4 (12:40→18:06)
[2018-07-06] MEDS: INSULIN GLARGINE [LANTus] (100 UNITS/ML) SYG SC (12:46)
[2018-07-06] MEDS ORDERED: (Nursing Note) XX (13:00)
[2018-07-06] MEDS ORDERED: ALBUTEROL/IPRATROPIUM (NEB) 3 ML AMP HHN (14:00)
[2018-07-06] MEDS ORDERED: ALBUTEROL HFA 8 GM INHALER INH (14:00)
[2018-07-06] MEDS ORDERED: VANCOMYCIN 1.25 GM in SOD CHLORIDE 0.9% 250 ML IVPB (15:00)
[2018-07-06] MEDS: ALBUTEROL HFA 8 GM INHALER INH ×2 (15:24→20:09)
[2018-07-06] MEDS: ACETYLCYSTEINE 20% 4 ML VIAL NEB ×2 (15:24→20:09)
[2018-07-06] MEDS: VANCOMYCIN 1.25 GM in DEXTROSE 5% 250 ML IVPB (15:43)
[2018-07-06] MEDS: FENTAnyl 1,000 MCG in DEXTROSE 5% 80 ML IV (18:13)
[2018-07-06] MEDS: MEROPENEM 1 GM/50ML(PMX) 50 ML IVPB (21:25)
[2018-07-06] MEDS: SENNA TAB PO (21:25)
[2018-07-06] MEDS: LORAZEPAM 2 MG INJ IV (21:40)
[2018-07-07] MEDS: ACETYLCYSTEINE 20% 4 ML VIAL NEB ×2 (01:45→08:00)
[2018-07-07] MEDS: IPRATROPIUM (HFA) 12.9 GM INHALER INH ×2 (01:45→08:00)
[2018-07-07] MEDS: ALBUTEROL HFA 8 GM INHALER INH ×2 (01:45→08:00)
[2018-07-07] MEDS: DEXTROSE 5% 1,000 ML IV ×3 (02:00→15:06)
[2018-07-07 05:01] LABS: WHITE BLOOD COUNT 5.5 10^3/ul (4.8-10.8)
[2018-07-07 05:01] LABS: ABNORMAL IP MESSAGE 1; ADD MAN DIFF? NO; BASOPHILS % 0.2 % (0.0-2.0); EOSINOPHILS # 0.1 10^3/ul (0.0-0.5); EOSINOPHILS % 2.2 % (0.0-7.0); HEMATOCRIT 27.8 % (42.0-52.0); HEMOGLOBIN 8.3 g/dl (14.0-18.0); LYMPHOCYTES % 17.3 % (15.0-51.0); MEAN CORPUSCULAR HEMOGLOBIN 28.5 pg (29.0-33.0); MEAN CORPUSCULAR HGB CONC 29.9 g/dl (32.0-37.0); MEAN CORPUSCULAR VOLUME 95.5 fl (82.0-101.0); MEAN PLATELET VOLUME 14.2 fl (7.4-10.4); MONOCYTE # 0.3 10^3/ul (0.3-0.9); MONOCYTES % 5.2 % (0.0-11.0); NEUTROPHIL # 4.1 10^3/ul (1.6-7.5); NEUTROPHILS % 73.8 % (39.0-77.0); NUCLEATED RED BLOOD CELLS% 0.4 /100WBC (0.0-0.0); PLATELET COUNT 91 10^3/UL (140-415); POSITIVE DIFF @See below; RED BLOOD COUNT 2.91 10^6/ul (4.70-6.10); RED CELL DISTRIBUTION WIDTH 15.6 % (11.5-14.5)
[2018-07-07 05:27] LABS: ANION GAP 1 (5-13); BLOOD UREA NITROGEN 23 mg/dl (7-20); CALCIUM 8.3 mg/dl (8.4-10.2); CARBON DIOXIDE 29 mmol/L (21-31); CHLORIDE 118 mmol/L (97-110); CREATININE 0.94 mg/dl (0.61-1.24); GLUCOSE 141 mg/dl (70-220); POTASSIUM 4.2 mmol/L (3.5-5.1); SODIUM 148 mmol/L (135-144)
[2018-07-07] MEDS: PANTOPRAZOLE 40 MG INJ IV (05:40)
[2018-07-07] MEDS: INSULIN ASPART [NOVOLOG] 3 ML PEN SC ×5 (05:41→23:23)
[2018-07-07] MEDS: FENTAnyl 1,000 MCG in DEXTROSE 5% 80 ML IV (05:56)
[2018-07-07] MEDS: CHOLECALCIFEROL 1,000 UNIT TAB PO (08:56)
[2018-07-07] MEDS: PATIENT'S OWN MEDICATION PO (08:56)
[2018-07-07] MEDS: DONEPEZIL 10 MG TAB PO (08:56)
[2018-07-07] MEDS: MULTIVITAMINS THERAPEUTIC TAB PO (08:56)
[2018-07-07] MEDS: MUPIROCIN 2% 22 GM OINT TOP ×2 (08:56→20:37)
[2018-07-07] MEDS: MEROPENEM 1 GM/50ML(PMX) 50 ML IVPB ×2 (08:56→20:37)
[2018-07-07] MEDS: ACETAMINOPHEN 650MG/20.3ML CUP GTB ×2 (08:59→20:38)
[2018-07-07 10:43] LABS: UR COLOR YELLOW (YELLOW)
[2018-07-07 10:44] LABS: UR GLUCOSE (Dip) NEGATIVE (NEGATIVE); UR KETONES (Dip) NEGATIVE (NEGATIVE); UR SPECIFIC GRAVITY (Dip) 1.016 (1.003-1.030); UR TOTAL PROTEIN (Dip) 1+ mg/dl (NEGATIVE)
[2018-07-07 10:45] LABS: UR BILIRUBIN (Dip) NEGATIVE (NEGATIVE); UR BLOOD (Dip) 1+ mg/dL (NEGATIVE); UR NITRITE (Dip) POSITIVE (NEGATIVE); UR UROBILINOGEN (Dip) NEGATIVE (NEGATIVE)
[2018-07-07 10:46] LABS: ADD UMIC YES; UR LEUKOCYTE ESTERASE (Dip) 2+ Leu/ul (NEGATIVE)
[2018-07-07 10:47] LABS: UR WBC > 182 /HPF (0-5)
[2018-07-07 10:49] LABS: UR AMORPHOUS CRYSTAL FEW /HPF (NONE SEEN); UR RBC 2 /HPF (0-5)
[2018-07-07 10:50] LABS: UR BACTERIA FEW /HPF (NONE SEEN); UR MUCUS FEW /HPF (NONE SEEN)
[2018-07-07 10:53] LABS: UR CLARITY SLIGHTLY CLOUDY (CLEAR)
[2018-07-07] MEDS: INSULIN GLARGINE [LANTus] (100 UNITS/ML) SYG SC (12:09)
[2018-07-07 12:22] LABS: ANA SCREEN NEGATIVE (NEGATIVE)
[2018-07-07] MEDS: IPRATROPIUM (NEB) 0.5 MG/2.5 ML AMP HHN ×2 (14:51→20:01)
[2018-07-07] MEDS: LEVALBUTEROL (NEB) 1.25 MG/0.5 ML AMP HHN ×2 (14:51→20:01)
[2018-07-07] MEDS: VANCOMYCIN 1.5 GM in DEXTROSE 5% 250 ML IVPB (16:01)
[2018-07-07] MEDS: SENNA TAB PO (20:37)
[2018-07-08] MEDS: LEVALBUTEROL (NEB) 1.25 MG/0.5 ML AMP HHN ×4 (02:45→20:04)
[2018-07-08] MEDS: IPRATROPIUM (NEB) 0.5 MG/2.5 ML AMP HHN ×4 (02:45→20:04)
[2018-07-08 05:03] LABS: ADD MAN DIFF? NO
[2018-07-08 05:09] LABS: ABNORMAL IP MESSAGE 1; BASOPHILS % 0.1 % (0.0-2.0); EOSINOPHILS # 0.1 10^3/ul (0.0-0.5); EOSINOPHILS % 1.5 % (0.0-7.0); HEMOGLOBIN 8.7 g/dl (14.0-18.0); LYMPHOCYTES # 1.2 10^3/ul (0.8-2.9); MEAN CORPUSCULAR HEMOGLOBIN 28.6 pg (29.0-33.0); MEAN CORPUSCULAR HGB CONC 31.1 g/dl (32.0-37.0); MEAN CORPUSCULAR VOLUME 92.1 fl (82.0-101.0); MEAN PLATELET VOLUME 13.7 fl (7.4-10.4); MONOCYTE # 0.3 10^3/ul (0.3-0.9); NEUTROPHIL # 5.1 10^3/ul (1.6-7.5); NEUTROPHILS % 75.1 % (39.0-77.0); PLATELET COUNT 126 10^3/UL (140-415); POSITIVE DIFF @See below; RED BLOOD COUNT 3.04 10^6/ul (4.70-6.10); RED CELL DISTRIBUTION WIDTH 15.2 % (11.5-14.5)
[2018-07-08 05:09] LABS: WHITE BLOOD COUNT 6.8 10^3/ul (4.8-10.8)
[2018-07-08] MEDS: PANTOPRAZOLE 40 MG INJ IV (05:32)
[2018-07-08] MEDS: INSULIN ASPART [NOVOLOG] 3 ML PEN SC ×3 (05:34→17:26)
[2018-07-08 05:43] LABS: ANION GAP 4 (5-13); BLOOD UREA NITROGEN 16 mg/dl (7-20); CALCIUM 8.7 mg/dl (8.4-10.2); CARBON DIOXIDE 31 mmol/L (21-31); CHLORIDE 114 mmol/L (97-110); GLUCOSE 106 mg/dl (70-220); POTASSIUM 3.2 mmol/L (3.5-5.1); SODIUM 149 mmol/L (135-144)
[2018-07-08] MEDS: DEXTROSE 5% 1,000 ML IV ×2 (06:54→20:38)
[2018-07-08] MEDS: ACETAMINOPHEN 650MG/20.3ML CUP GTB (06:54)
[2018-07-08] MEDS: PATIENT'S OWN MEDICATION PO (09:00)
[2018-07-08] MEDS: MEROPENEM 1 GM/50ML(PMX) 50 ML IVPB ×2 (09:00→20:37)
[2018-07-08] MEDS: CHOLECALCIFEROL 1,000 UNIT TAB PO (09:00)
[2018-07-08] MEDS: MUPIROCIN 2% 22 GM OINT TOP ×2 (09:00→20:38)
[2018-07-08] MEDS: MULTIVITAMINS THERAPEUTIC TAB PO (09:00)
[2018-07-08] MEDS: DONEPEZIL 10 MG TAB PO (09:00)
[2018-07-08] MEDS: INSULIN GLARGINE [LANTus] (100 UNITS/ML) SYG SC (09:03)
[2018-07-08] MEDS: SCOPOLAMINE 1.5 MG PATCH TRANSDERM (10:50)
[2018-07-08] MEDS: POTASSIUM CHLORIDE 50 ML IVPB ×3 (13:30→17:16)
[2018-07-08 13:42] LABS: HEPARIN INDUCED PLATELET AB NEGATIVE (NEGATIVE)
[2018-07-08] MEDS: SENNA TAB PO (20:38)
[2018-07-08] MEDS: DOXYCYCLINE 100 MG TAB PO (20:38)
[2018-07-08 22:48] LABS: ERYTHROPOIETIN 65.8 mIU/mL (2.6-18.5)
[2018-07-09] MEDS: INSULIN ASPART [NOVOLOG] 3 ML PEN SC ×5 (00:14→23:42)
[2018-07-09] MEDS: LEVALBUTEROL (NEB) 1.25 MG/0.5 ML AMP HHN ×4 (01:36→20:24)
[2018-07-09] MEDS: IPRATROPIUM (NEB) 0.5 MG/2.5 ML AMP HHN ×4 (01:36→20:24)
[2018-07-09 05:14] LABS: ADD MAN DIFF? NO
[2018-07-09 05:20] LABS: ABNORMAL IP MESSAGE 1; BASOPHILS % 0.2 % (0.0-2.0); EOSINOPHILS # 0.1 10^3/ul (0.0-0.5); EOSINOPHILS % 1.3 % (0.0-7.0); HEMATOCRIT 26.4 % (42.0-52.0); HEMOGLOBIN 8.3 g/dl (14.0-18.0); LYMPHOCYTES % 17.3 % (15.0-51.0); MEAN CORPUSCULAR HEMOGLOBIN 28.9 pg (29.0-33.0); MEAN CORPUSCULAR HGB CONC 31.4 g/dl (32.0-37.0); MEAN PLATELET VOLUME 13.2 fl (7.4-10.4); MONOCYTE # 0.5 10^3/ul (0.3-0.9); MONOCYTES % 9.2 % (0.0-11.0); NEUTROPHIL # 3.9 10^3/ul (1.6-7.5); NEUTROPHILS % 70.9 % (39.0-77.0); PLATELET COUNT 150 10^3/UL (140-415); POSITIVE DIFF @See below; RED BLOOD COUNT 2.87 10^6/ul (4.70-6.10); RED CELL DISTRIBUTION WIDTH 14.7 % (11.5-14.5)
[2018-07-09 05:20] LABS: WHITE BLOOD COUNT 5.5 10^3/ul (4.8-10.8)
[2018-07-09] MEDS: PANTOPRAZOLE 40 MG INJ IV (05:43)
[2018-07-09] MEDS: ACETAMINOPHEN 650MG/20.3ML CUP GTB (05:43)
[2018-07-09 05:46] LABS: ANION GAP 1 (5-13); BLOOD UREA NITROGEN 12 mg/dl (7-20); CALCIUM 8.7 mg/dl (8.4-10.2); CARBON DIOXIDE 34 mmol/L (21-31); CHLORIDE 111 mmol/L (97-110); CREATININE 0.72 mg/dl (0.61-1.24); GLUCOSE 101 mg/dl (70-220); POTASSIUM 3.2 mmol/L (3.5-5.1); SODIUM 146 mmol/L (135-144)
[2018-07-09] MEDS: DOXYCYCLINE 100 MG TAB PO ×2 (09:37→20:44)
[2018-07-09] MEDS: DONEPEZIL 10 MG TAB PO (09:37)
[2018-07-09] MEDS: MULTIVITAMINS THERAPEUTIC TAB PO (09:37)
[2018-07-09] MEDS: PATIENT'S OWN MEDICATION PO (09:38)
[2018-07-09] MEDS: MEROPENEM 1 GM/50ML(PMX) 50 ML IVPB (09:38)
[2018-07-09] MEDS: INSULIN GLARGINE [LANTus] (100 UNITS/ML) SYG SC (09:39)
[2018-07-09] MEDS: DEXTROSE 5% 1,000 ML IV ×2 (09:39→17:19)
[2018-07-09] MEDS: CHOLECALCIFEROL 1,000 UNIT TAB PO (09:39)
[2018-07-09] MEDS: MUPIROCIN 2% 22 GM OINT TOP ×2 (09:39→20:45)
[2018-07-09] MEDS: POTASSIUM CHLORIDE (SR) 20 MEQ TAB PO (09:46)
[2018-07-09] MEDS: TERBINAFINE 250 MG TAB PO ×2 (11:59→20:45)
[2018-07-09] MEDS: CEFEPIME 1GM/50 ML (PMX) 50 ML IVPB ×2 (12:02→20:44)
[2018-07-09 15:24] LABS: RAPID PLASMA REAGIN NONREACTIVE (NR)
[2018-07-09] MEDS: POTASSIUM CHLORIDE 20 MEQ POWDER FOR ORAL SOLN GTB (20:45)
[2018-07-09] MEDS: SENNA TAB PO (20:45)
[2018-07-10] MEDS: ACETAMINOPHEN 650MG/20.3ML CUP GTB ×2 (01:39→18:10)
[2018-07-10] MEDS: LEVALBUTEROL (NEB) 1.25 MG/0.5 ML AMP HHN ×4 (01:43→20:35)
[2018-07-10] MEDS: IPRATROPIUM (NEB) 0.5 MG/2.5 ML AMP HHN ×4 (01:43→20:35)
[2018-07-10] MEDS: DEXTROSE 5% 1,000 ML IV (04:31)
[2018-07-10] MEDS: INSULIN ASPART [NOVOLOG] 3 ML PEN SC ×3 (05:17→17:16)
[2018-07-10] MEDS: PANTOPRAZOLE 40 MG INJ IV (05:17)
[2018-07-10 07:01] LABS: ADD MAN DIFF? NO
[2018-07-10 07:13] LABS: WHITE BLOOD COUNT 6.9 10^3/ul (4.8-10.8)
[2018-07-10 07:13] LABS: BASOPHILS % 0.3 % (0.0-2.0); EOSINOPHILS # 0.1 10^3/ul (0.0-0.5); EOSINOPHILS % 1.6 % (0.0-7.0); HEMATOCRIT 28.6 % (42.0-52.0); LYMPHOCYTES # 1.4 10^3/ul (0.8-2.9); LYMPHOCYTES % 20.4 % (15.0-51.0); MEAN CORPUSCULAR HEMOGLOBIN 28.7 pg (29.0-33.0); MEAN CORPUSCULAR HGB CONC 31.5 g/dl (32.0-37.0); MEAN CORPUSCULAR VOLUME 91.1 fl (82.0-101.0); MEAN PLATELET VOLUME 12.7 fl (7.4-10.4); MONOCYTE # 0.7 10^3/ul (0.3-0.9); MONOCYTES % 10.6 % (0.0-11.0); NEUTROPHIL # 4.6 10^3/ul (1.6-7.5); NEUTROPHILS % 66.4 % (39.0-77.0); PLATELET COUNT 202 10^3/UL (140-415); RED BLOOD COUNT 3.14 10^6/ul (4.70-6.10); RED CELL DISTRIBUTION WIDTH 14.9 % (11.5-14.5)
[2018-07-10 07:59] LABS: ANION GAP 5 (5-13); BLOOD UREA NITROGEN 12 mg/dl (7-20); CALCIUM 9.1 mg/dl (8.4-10.2); CARBON DIOXIDE 34 mmol/L (21-31); CHLORIDE 107 mmol/L (97-110); CREATININE 0.74 mg/dl (0.61-1.24); GLUCOSE 78 mg/dl (70-220); POTASSIUM 3.5 mmol/L (3.5-5.1); SODIUM 146 mmol/L (135-144)
[2018-07-10] MEDS: CEFEPIME 1GM/50 ML (PMX) 50 ML IVPB ×2 (08:18→20:36)
[2018-07-10] MEDS: TERBINAFINE 250 MG TAB PO ×2 (08:19→20:37)
[2018-07-10] MEDS: DOXYCYCLINE 100 MG TAB PO ×2 (08:19→20:37)
[2018-07-10] MEDS: MULTIVITAMINS THERAPEUTIC TAB PO (08:19)
[2018-07-10] MEDS: DONEPEZIL 10 MG TAB PO (08:19)
[2018-07-10] MEDS: CHOLECALCIFEROL 1,000 UNIT TAB PO (08:19)
[2018-07-10] MEDS: MUPIROCIN 2% 22 GM OINT TOP ×2 (08:20→20:37)
[2018-07-10] MEDS: PATIENT'S OWN MEDICATION PO (08:21)
[2018-07-10] MEDS: INSULIN GLARGINE [LANTus] (100 UNITS/ML) SYG SC (08:24)
[2018-07-10] MEDS: hydrALAzine 20 MG INJ IV (08:31)
[2018-07-10] MEDS: SENNA TAB PO (20:36)
[2018-07-11] MEDS: ACETAMINOPHEN 650MG/20.3ML CUP GTB ×3 (00:58→23:57)
[2018-07-11] MEDS: IPRATROPIUM (NEB) 0.5 MG/2.5 ML AMP HHN ×4 (01:34→20:39)
[2018-07-11] MEDS: LEVALBUTEROL (NEB) 1.25 MG/0.5 ML AMP HHN ×4 (01:34→20:39)
[2018-07-11] MEDS: PANTOPRAZOLE 40 MG INJ IV (05:52)
[2018-07-11] MEDS: INSULIN ASPART [NOVOLOG] 3 ML PEN SC ×4 (05:57→18:00)
[2018-07-11] MEDS: SCOPOLAMINE 1.5 MG PATCH TRANSDERM (08:28)
[2018-07-11] MEDS: DOXYCYCLINE 100 MG TAB PO ×2 (08:28→21:15)
[2018-07-11] MEDS: CHOLECALCIFEROL 1,000 UNIT TAB PO (08:28)
[2018-07-11] MEDS: MULTIVITAMINS THERAPEUTIC TAB PO (08:28)
[2018-07-11] MEDS: TERBINAFINE 250 MG TAB PO ×2 (08:28→21:00)
[2018-07-11] MEDS: DONEPEZIL 10 MG TAB PO (08:29)
[2018-07-11] MEDS: CEFEPIME 1GM/50 ML (PMX) 50 ML IVPB ×2 (08:29→21:15)
[2018-07-11] MEDS: PATIENT'S OWN MEDICATION PO (08:33)
[2018-07-11] MEDS: INSULIN GLARGINE [LANTus] (100 UNITS/ML) SYG SC (08:45)
[2018-07-11] MEDS: MUPIROCIN 2% 22 GM OINT TOP ×2 (12:32→21:16)
[2018-07-11] MEDS: SENNA TAB PO ×2 (21:00→21:15)
[2018-07-11] MEDS ORDERED: HEPARIN 5,000 UNIT/0.5 ML VIAL (21:07)
[2018-07-11] MEDS: HEPARIN SODIUM 5,000 UNIT/ML VIAL SC (21:27)
[2018-07-11 23:17] LABS: PLATELET ANTIBODY - IGA NEGATIVE (NEGATIVE); PLATELET ANTIBODY - IGG NEGATIVE (NEGATIVE); PLATELET ANTIBODY - IGM NEGATIVE (NEGATIVE)
[2018-07-11] MEDS: EPOETIN 10000 UNITS/ML (NON ESRD/NON ONCOLOGY) SC (23:22)
[2018-07-11] MEDS: LORAZEPAM 2 MG INJ IV (23:25)
[2018-07-12] MEDS: DEXTROSE 50% 50 ML SYRINGE IV (00:23)
[2018-07-12] MEDS: LEVALBUTEROL (NEB) 1.25 MG/0.5 ML AMP HHN ×4 (02:20→20:15)
[2018-07-12] MEDS: IPRATROPIUM (NEB) 0.5 MG/2.5 ML AMP HHN ×4 (02:20→20:15)
[2018-07-12] MEDS: PANTOPRAZOLE 40 MG INJ IV (05:22)
[2018-07-12] MEDS: INSULIN ASPART [NOVOLOG] 3 ML PEN SC ×4 (05:26→17:09)
[2018-07-12 07:06] LABS: ADD MAN DIFF? NO
[2018-07-12 07:40] LABS: ANION GAP 4 (5-13); BLOOD UREA NITROGEN 16 mg/dl (7-20); CARBON DIOXIDE 35 mmol/L (21-31); CHLORIDE 106 mmol/L (97-110); CREATININE 0.79 mg/dl (0.61-1.24); GLUCOSE 93 mg/dl (70-220); POTASSIUM 3.1 mmol/L (3.5-5.1); SODIUM 145 mmol/L (135-144)
[2018-07-12 07:51] LABS: BASOPHILS % 0.1 % (0.0-2.0); EOSINOPHILS # 0.1 10^3/ul (0.0-0.5); EOSINOPHILS % 1.4 % (0.0-7.0); HEMATOCRIT 27.5 % (42.0-52.0); HEMOGLOBIN 8.7 g/dl (14.0-18.0); LYMPHOCYTES # 1.6 10^3/ul (0.8-2.9); LYMPHOCYTES % 22.7 % (15.0-51.0); MEAN CORPUSCULAR HEMOGLOBIN 28.9 pg (29.0-33.0); MEAN CORPUSCULAR HGB CONC 31.6 g/dl (32.0-37.0); MEAN CORPUSCULAR VOLUME 91.4 fl (82.0-101.0); MEAN PLATELET VOLUME 11.6 fl (7.4-10.4); MONOCYTE # 0.9 10^3/ul (0.3-0.9); MONOCYTES % 13.4 % (0.0-11.0); NEUTROPHIL # 4.3 10^3/ul (1.6-7.5); NEUTROPHILS % 61.5 % (39.0-77.0); PLATELET COUNT 243 10^3/UL (140-415); RED BLOOD COUNT 3.01 10^6/ul (4.70-6.10); RED CELL DISTRIBUTION WIDTH 14.8 % (11.5-14.5)
[2018-07-12] MEDS ORDERED: HEPARIN 5,000 UNIT/0.5 ML VIAL ×2 (08:41→21:41)
[2018-07-12] MEDS: DONEPEZIL 10 MG TAB PO (08:44)
[2018-07-12] MEDS: DOXYCYCLINE 100 MG TAB PO ×2 (08:44→21:57)
[2018-07-12] MEDS: CEFEPIME 1GM/50 ML (PMX) 50 ML IVPB ×2 (08:44→21:56)
[2018-07-12] MEDS: MULTIVITAMINS THERAPEUTIC TAB PO (08:44)
[2018-07-12] MEDS: TERBINAFINE 250 MG TAB PO ×2 (08:45→23:11)
[2018-07-12] MEDS: CHOLECALCIFEROL 1,000 UNIT TAB PO (08:45)
[2018-07-12] MEDS: HEPARIN SODIUM 5,000 UNIT/ML VIAL SC ×2 (08:53→22:08)
[2018-07-12] MEDS: MUPIROCIN 2% 22 GM OINT TOP ×2 (08:54→21:57)
[2018-07-12] MEDS: PATIENT'S OWN MEDICATION PO (09:00)
[2018-07-12] MEDS: INSULIN GLARGINE [LANTus] (100 UNITS/ML) SYG SC (10:06)
[2018-07-12] MEDS: POTASSIUM CHLORIDE (SR) 20 MEQ TAB PO (13:43)
[2018-07-12] MEDS: POTASSIUM CHLORIDE 100 ML IVPB ×3 (14:47→18:41)
[2018-07-12] MEDS: DIMETHICONE STICK TOP ×2 (14:50→21:57)
[2018-07-12] MEDS: SENNA TAB PO (21:57)
[2018-07-12] MEDS: ACETAMINOPHEN 650MG/20.3ML CUP GTB (22:01)
[2018-07-13] MEDS: INSULIN ASPART [NOVOLOG] 3 ML PEN SC ×5 (01:16→23:30)
[2018-07-13] MEDS: DIMETHICONE STICK TOP ×4 (02:08→20:12)
[2018-07-13] MEDS: hydrALAzine 20 MG INJ IV ×3 (02:15→21:18)
[2018-07-13] MEDS: LEVALBUTEROL (NEB) 1.25 MG/0.5 ML AMP HHN ×4 (02:28→19:54)
[2018-07-13] MEDS: IPRATROPIUM (NEB) 0.5 MG/2.5 ML AMP HHN ×4 (02:28→19:54)
[2018-07-13 05:21] LABS: ADD MAN DIFF? NO
[2018-07-13 05:26] LABS: BASOPHILS % 0.3 % (0.0-2.0); EOSINOPHILS # 0.1 10^3/ul (0.0-0.5); EOSINOPHILS % 0.7 % (0.0-7.0); HEMATOCRIT 27.6 % (42.0-52.0); HEMOGLOBIN 8.7 g/dl (14.0-18.0); LYMPHOCYTES # 1.1 10^3/ul (0.8-2.9); LYMPHOCYTES % 12.1 % (15.0-51.0); MEAN CORPUSCULAR HEMOGLOBIN 28.2 pg (29.0-33.0); MEAN CORPUSCULAR HGB CONC 31.5 g/dl (32.0-37.0); MEAN CORPUSCULAR VOLUME 89.3 fl (82.0-101.0); MEAN PLATELET VOLUME 11.6 fl (7.4-10.4); MONOCYTES % 10.9 % (0.0-11.0); NEUTROPHIL # 6.7 10^3/ul (1.6-7.5); NEUTROPHILS % 75.6 % (39.0-77.0); PLATELET COUNT 296 10^3/UL (140-415); RED BLOOD COUNT 3.09 10^6/ul (4.70-6.10); RED CELL DISTRIBUTION WIDTH 14.8 % (11.5-14.5)
[2018-07-13 05:26] LABS: WHITE BLOOD COUNT 8.9 10^3/ul (4.8-10.8)
[2018-07-13 05:44] LABS: ANION GAP 6 (5-13); BLOOD UREA NITROGEN 13 mg/dl (7-20); CALCIUM 9.6 mg/dl (8.4-10.2); CARBON DIOXIDE 34 mmol/L (21-31); CHLORIDE 104 mmol/L (97-110); CREATININE 0.74 mg/dl (0.61-1.24); GLUCOSE 93 mg/dl (70-220); POTASSIUM 3.1 mmol/L (3.5-5.1); SODIUM 144 mmol/L (135-144)
[2018-07-13] MEDS: PANTOPRAZOLE 40 MG INJ IV (06:24)
[2018-07-13] MEDS ORDERED: HEPARIN 5,000 UNIT/0.5 ML VIAL ×2 (08:15→20:09)
[2018-07-13] MEDS: CEFEPIME 1GM/50 ML (PMX) 50 ML IVPB ×2 (08:24→20:12)
[2018-07-13] MEDS: MUPIROCIN 2% 22 GM OINT TOP ×2 (08:25→20:13)
[2018-07-13] MEDS: DOXYCYCLINE 100 MG TAB PO (08:25)
[2018-07-13] MEDS: CHOLECALCIFEROL 1,000 UNIT TAB PO (08:25)
[2018-07-13] MEDS: TERBINAFINE 250 MG TAB PO ×2 (08:25→20:12)
[2018-07-13] MEDS: PATIENT'S OWN MEDICATION PO (08:26)
[2018-07-13] MEDS: INSULIN GLARGINE [LANTus] (100 UNITS/ML) SYG SC (08:34)
[2018-07-13] MEDS: HEPARIN SODIUM 5,000 UNIT/ML VIAL SC ×2 (08:35→20:17)
[2018-07-13] MEDS: MULTIVITAMINS THERAPEUTIC TAB PO (10:03)
[2018-07-13] MEDS ORDERED: VANCOMYCIN IV PER PHARMACY XX (11:00)
[2018-07-13] MEDS: VANCOMYCIN 1.5 GM in SOD CHLORIDE 0.9% 250 ML IVPB (12:04)
[2018-07-13] MEDS: POTASSIUM CHLORIDE 50 ML IVPB ×3 (15:10→21:20)
[2018-07-13] MEDS: EPOETIN 10000 UNITS/ML (NON ESRD/NON ONCOLOGY) SC (18:10)
[2018-07-13] MEDS: SENNA TAB PO (20:12)
[2018-07-13] MEDS: VANCOMYCIN 750 MG in DEXTROSE 5% 150 ML IVPB (23:26)
[2018-07-14] MEDS: POTASSIUM CHLORIDE 50 ML IVPB (01:30)
[2018-07-14] MEDS: LEVALBUTEROL (NEB) 1.25 MG/0.5 ML AMP HHN ×4 (01:54→20:00)
[2018-07-14] MEDS: IPRATROPIUM (NEB) 0.5 MG/2.5 ML AMP HHN ×4 (01:54→21:01)
[2018-07-14] MEDS: DIMETHICONE STICK TOP ×4 (02:38→20:05)
[2018-07-14] MEDS: INSULIN ASPART [NOVOLOG] 3 ML PEN SC ×3 (05:52→17:39)
[2018-07-14] MEDS ORDERED: PANTOPRAZOLE (EC) 40 MG TAB PO (06:00)
[2018-07-14] MEDS: LANSOPRAZOLE 30 MG CAP GTB (06:27)
[2018-07-14] MEDS ORDERED: DOCUSATE SODIUM 250 MG CAP PO (09:00)
[2018-07-14 09:32] LABS: ADD MAN DIFF? NO
[2018-07-14 09:43] LABS: WHITE BLOOD COUNT 7.1 10^3/ul (4.8-10.8)
[2018-07-14 09:43] LABS: BASOPHILS % 0.4 % (0.0-2.0); EOSINOPHILS # 0.1 10^3/ul (0.0-0.5); EOSINOPHILS % 1.6 % (0.0-7.0); HEMATOCRIT 25.5 % (42.0-52.0); HEMOGLOBIN 8.1 g/dl (14.0-18.0); LYMPHOCYTES % 14.5 % (15.0-51.0); MEAN CORPUSCULAR HEMOGLOBIN 28.6 pg (29.0-33.0); MEAN CORPUSCULAR HGB CONC 31.8 g/dl (32.0-37.0); MEAN CORPUSCULAR VOLUME 90.1 fl (82.0-101.0); MEAN PLATELET VOLUME 10.9 fl (7.4-10.4); MONOCYTE # 0.9 10^3/ul (0.3-0.9); MONOCYTES % 13.3 % (0.0-11.0); NEUTROPHIL # 4.9 10^3/ul (1.6-7.5); NEUTROPHILS % 69.6 % (39.0-77.0); PLATELET COUNT 297 10^3/UL (140-415); RED BLOOD COUNT 2.83 10^6/ul (4.70-6.10); RED CELL DISTRIBUTION WIDTH 15.1 % (11.5-14.5)
[2018-07-14 10:06] LABS: ANION GAP 2 (5-13); BLOOD UREA NITROGEN 16 mg/dl (7-20); CARBON DIOXIDE 33 mmol/L (21-31); CHLORIDE 106 mmol/L (97-110); GLUCOSE 116 mg/dl (70-220); POTASSIUM 3.6 mmol/L (3.5-5.1); SODIUM 141 mmol/L (135-144)
[2018-07-14] MEDS: INSULIN GLARGINE [LANTus] (100 UNITS/ML) SYG SC (10:06)
[2018-07-14] MEDS: SCOPOLAMINE 1.5 MG PATCH TRANSDERM (10:07)
[2018-07-14] MEDS: DOCUSATE SODIUM 10 MG/ML (10ML CUP) GTB (10:07)
[2018-07-14] MEDS: CEFEPIME 1GM/50 ML (PMX) 50 ML IVPB (10:07)
[2018-07-14] MEDS: TERBINAFINE 250 MG TAB PO (10:07)
[2018-07-14] MEDS: MUPIROCIN 2% 22 GM OINT TOP ×2 (10:08→20:05)
[2018-07-14] MEDS: CHOLECALCIFEROL 1,000 UNIT TAB PO (10:08)
[2018-07-14] MEDS: MULTIVITAMINS THERAPEUTIC TAB PO (10:08)
[2018-07-14] MEDS: POTASSIUM CHLORIDE (SR) 20 MEQ TAB PO (10:14)
[2018-07-14] MEDS ORDERED: HEPARIN 5,000 UNIT/0.5 ML VIAL ×2 (13:59→20:02)
[2018-07-14] MEDS: HEPARIN SODIUM 5,000 UNIT/ML VIAL SC ×2 (14:02→20:13)
[2018-07-14] MEDS: SENNA TAB PO (20:05)
[2018-07-15] MEDS ORDERED: PATIENT'S OWN MEDICATION PO (09:00)
== END 2018-07-14 22:10 | DRG 870 ==
LOC: ICU 07-02 14:02 → TEL 07-09 15:48 → E/R 12:29 → 2NE 07-12 23:16 → 6WM 15:00
PROC: 02HV33Z Insertion of Infusion Device into Superior Vena Cava, Percutaneous Approach (ICD-10-PCS; principal; 2018-07-02)
PROC: 5A1955Z Respiratory Ventilation, Greater than 96 Consecutive Hours (ICD-10-PCS; 2018-07-02)
PROC: 0BH18EZ Insertion of Endotracheal Airway into Trachea, Via Natural or Artificial Opening Endoscopic (ICD-10-PCS; 2018-07-02)
PROC: 30233N1 Transfusion of Nonautologous Red Blood Cells into Peripheral Vein, Percutaneous Approach (ICD-10-PCS; 2018-07-04)
DX: A41.9 Sepsis, unspecified organism (principal); J18.9 Pneumonia, unspecified organism; R65.21 Severe sepsis with septic shock; G92 Toxic encephalopathy; R53.2 Functional quadriplegia; I63.9 Cerebral infarction, unspecified; J96.02 Acute respiratory failure with hypercapnia; J96.01 Acute respiratory failure with hypoxia; N17.9 Acute kidney failure, unspecified; E87.0 Hyperosmolality and hypernatremia; N39.0 Urinary tract infection, site not specified; C79.51 Secondary malignant neoplasm of bone; E86.0 Dehydration; E11.22 Type 2 diabetes mellitus with diabetic chronic kidney disease; G30.9 Alzheimer's disease, unspecified; F02.80 Dementia in other diseases classified elsewhere, unspecified severity, without behavioral disturbance, psychotic disturbance, mood disturbance, and anxiety; C61 Malignant neoplasm of prostate; I25.10 Atherosclerotic heart disease of native coronary artery without angina pectoris; I12.9 Hypertensive chronic kidney disease with stage 1 through stage 4 chronic kidney disease, or unspecified chronic kidney disease; N18.9 Chronic kidney disease, unspecified; R13.10 Dysphagia, unspecified; E78.5 Hyperlipidemia, unspecified; M19.90 Unspecified osteoarthritis, unspecified site; D63.1 Anemia in chronic kidney disease; D69.6 Thrombocytopenia, unspecified; Z93.1 Gastrostomy status; B35.1 Tinea unguium; B96.89 Other specified bacterial agents as the cause of diseases classified elsewhere; E87.6 Hypokalemia; Z22.322 Carrier or suspected carrier of Methicillin resistant Staphylococcus aureus
CPT/HCPCS: 36415; 36430; 36600; 70551; 71045; 76705; 80048; 80053; 80061; 80076; 80202; 81001; 82533; 82550; 82553; 82607; 82668; 82728; 82746; 82803; 82962; 83036; 83540; 83605; 83735; 83880; 83930; 83935; 84100; 84153; 84154; 84155; 84300; 84436; 84443; 84479; 84484; 85025; 85045; 85384; 85610; 85730; 86022; 86038; 86592; 86850; 86900; 86901; 86920; 87040; 87070; 87081; 87086; 89220; 93005; 93971; 94002; 94003; 94640; 94667; 94668; 94770; 97162; 99285-25

== ENCOUNTER 2018-12-29 08:42 | Inpatient (IN) | payer MEDICARE, OTHER ==
[2018-12-29 09:12] LABS: ABNORMAL IP MESSAGE 1; HEMATOCRIT 26.7 % (42.0-52.0); HEMOGLOBIN 7.7 g/dl (14.0-18.0); MEAN CORPUSCULAR HEMOGLOBIN 26.9 pg (29.0-33.0); MEAN CORPUSCULAR HGB CONC 28.8 g/dl (32.0-37.0); MEAN CORPUSCULAR VOLUME 93.4 fl (82.0-101.0); NUCLEATED RED BLOOD CELLS% 0.2 /100WBC (0.0-0.0); PLATELET COUNT 159 10^3/UL (140-415); POSITIVE DIFF @See below; RED BLOOD COUNT 2.86 10^6/ul (4.70-6.10); RED CELL DISTRIBUTION WIDTH 16.4 % (11.5-14.5)
[2018-12-29 09:12] LABS: WHITE BLOOD COUNT 8.1 10^3/ul (4.8-10.8)
[2018-12-29 09:15] LABS: ADD MAN DIFF? YES
[2018-12-29] MEDS: CEFEPIME 2GM/50 ML (PMX) 50 ML IVPB (09:16)
[2018-12-29] MEDS: SODIUM CHLORIDE 0.9% 1L BAG IV* (09:16)
[2018-12-29] MEDS: ACETAMINOPHEN 650MG/20.3ML CUP PEG (09:16)
[2018-12-29] MEDS: IBUPROFEN 800 MG TAB PEG (09:21)
[2018-12-29] MEDS: VANCOMYCIN 1 GM (PMX) 250 ML IVPB (09:22)
[2018-12-29 09:29] LABS: ADD UMIC YES; UR AMORPHOUS CRYSTAL FEW /HPF (NONE SEEN); UR ASCORBIC ACID 40 mg/dL (NEGATIVE); UR BACTERIA FEW /HPF (NONE SEEN); UR BILIRUBIN (Dip) NEGATIVE (NEGATIVE); UR BLOOD (Dip) 1+ mg/dL (NEGATIVE); UR CLARITY CLOUDY (CLEAR); UR COLOR YELLOW (YELLOW); UR GLUCOSE (Dip) NEGATIVE (NEGATIVE); UR KETONES (Dip) NEGATIVE (NEGATIVE); UR LEUKOCYTE ESTERASE (Dip) 3+ Leu/ul (NEGATIVE); UR NITRITE (Dip) NEGATIVE (NEGATIVE); UR RBC 16 /HPF (0-5); UR SPECIFIC GRAVITY (Dip) 1.016 (1.003-1.030); UR TOTAL PROTEIN (Dip) 1+ mg/dl (NEGATIVE); UR UROBILINOGEN (Dip) 1+ mg/dL (NEGATIVE); UR WBC > 182 /HPF (0-5)
[2018-12-29 09:31] LABS: INR 1.23; PROTIME 15.6 Sec (11.9-14.9); PT RATIO 1.2
[2018-12-29 09:32] LABS: PARTIAL THROMBOPLASTIN TIME 33.3 Sec (23.0-35.0)
[2018-12-29 09:36] LABS: ALBUMIN 3.1 g/dl (3.3-4.9); ALBUMIN/GLOBULIN RATIO 0.77; ALKALINE PHOSPHATASE 130 IU/L (42-121); AMYLASE 68 U/L (11-123); ANION GAP 2 (5-13); ASPARTATE AMINO TRANSFERASE 22 IU/L (15-46); BLOOD UREA NITROGEN 51 mg/dl (7-20); CALCIUM 9.5 mg/dl (8.4-10.2); CARBON DIOXIDE 38 mmol/L (21-31); CHLORIDE 122 mmol/L (97-110); CREATININE 1.52 mg/dl (0.61-1.24); GLUCOSE 188 mg/dl (70-220); LIPASE 123 U/L (23-300); POTASSIUM 3.1 mmol/L (3.5-5.1); TOTAL PROTEIN 7.1 g/dl (6.1-8.1)
[2018-12-29 09:48] LABS: ALANINE AMINOTRANSFERASE < 6 IU/L (13-69)
[2018-12-29 09:49] LABS: SODIUM 162 mmol/L (135-144)
[2018-12-29 09:57] LABS: Arterial Base Excess 11.3 mmol/L (-3.0-3); Arterial Blood Gas Oxygen Sat 95.8 mmHG (95.0-100.0); Arterial COHb 0.3 % (0.0-3.0); Arterial HCO3 36.3 mmol/L (22.0-26.0); Arterial MetHb 0.5 % (0.0-1.5); Arterial pCO2 51.7 mmhg (35-45); MODE NASAL CANNULA; Site LB
[2018-12-29 11:23] LABS: B-TYPE NATRIURETIC PEPTIDE 866 PG/ML (0-450)
[2018-12-29] MEDS ORDERED: ONDANSETRON 4 MG INJ IV ×2 (12:30)
[2018-12-29] MEDS ORDERED: ACETAMINOPHEN 325 MG TAB PO (12:30)
[2018-12-29] MEDS ORDERED: VANCOMYCIN IV PER PHARMACY XX (12:30)
[2018-12-29] MEDS ORDERED: NACL 0.9% 3 ML SYG IV (12:30)
[2018-12-29 13:22] LABS: LACTIC ACID 1.1 mmol/L (0.5-2.0)
[2018-12-29 13:30] LABS: HEMOGLOBIN A1C 6.8 % (0-5.9)
[2018-12-29 13:40] LABS: ANION GAP 4 (5-13); BLOOD UREA NITROGEN 63 mg/dl (7-20); CALCIUM 8.8 mg/dl (8.4-10.2); CARBON DIOXIDE 37 mmol/L (21-31); CHLORIDE 120 mmol/L (97-110); CREATININE 1.47 mg/dl (0.61-1.24); GLUCOSE 199 mg/dl (70-220); POTASSIUM 3.3 mmol/L (3.5-5.1)
[2018-12-29 13:43] LABS: SODIUM 161 mmol/L (135-144)
[2018-12-29] MEDS: INSULIN ASPART [NOVOLOG] 3 ML PEN SC ×2 (14:30→20:30)
[2018-12-29] MEDS: LEVALBUTEROL (NEB) 0.63 MG/3 ML AMP HHN ×2 (14:32→20:42)
[2018-12-29 14:46] LABS: SODIUM,URINE RANDOM < 13 mmol/L (30-90)
[2018-12-29 14:48] LABS: OSMOLALITY,URINE 422 mOsm/kg (250-1200)
[2018-12-29 14:49] LABS: CREATININE,URINE RANDOM 76.67 mg/dl (20-370)
[2018-12-29] MEDS ORDERED: GLUCAGON 1 MG INJ IM (15:00)
[2018-12-29] MEDS ORDERED: GLUCOSE GEL 15 GRAM TUBE BUCCAL (15:00)
[2018-12-29] MEDS ORDERED: DEXTROSE 50% 50 ML SYRINGE IV ×2 (15:00)
[2018-12-29] MEDS ORDERED: GLUCOSE GEL 15 GRAM TUBE PO ×2 (15:00)
[2018-12-29] MEDS: SOD CHLORIDE 0.45% 1,000 ML IV (15:03)
[2018-12-29] MEDS: PIPER-TAZO 3.375 GM IV (PMX) 100 ML IVPB (17:57)
[2018-12-30] MEDS: INSULIN GLARGINE [LANTus] (100 UNITS/ML) SYG SC (00:57)
[2018-12-30] MEDS ORDERED: PENDING SANTYL ORDER FOR WOUND CARE XX (01:00)
[2018-12-30] MEDS: PIPER-TAZO 3.375 GM IV (PMX) 100 ML IVPB ×4 (01:02→17:11)
[2018-12-30] MEDS: SOD CHLORIDE 0.45% 1,000 ML IV ×3 (01:03→17:31)
[2018-12-30] MEDS: LEVALBUTEROL (NEB) 0.63 MG/3 ML AMP HHN ×4 (02:33→20:44)
[2018-12-30] MEDS: VANCOMYCIN HCL 1.25 GM in SOD CHLORIDE 0.9% 250 ML IVPB (05:56)
[2018-12-30] MEDS: INSULIN ASPART [NOVOLOG] 3 ML PEN SC ×3 (06:21→17:48)
[2018-12-30 07:22] LABS: ADD MAN DIFF? NO
[2018-12-30 07:23] LABS: ABNORMAL IP MESSAGE 1; EOSINOPHILS # 0.2 10^3/ul (0.0-0.5); EOSINOPHILS % 2.8 % (0.0-7.0); HEMATOCRIT 24.1 % (42.0-52.0); LYMPHOCYTES # 0.6 10^3/ul (0.8-2.9); LYMPHOCYTES % 10.1 % (15.0-51.0); MEAN CORPUSCULAR HEMOGLOBIN 26.8 pg (29.0-33.0); MEAN CORPUSCULAR HGB CONC 28.6 g/dl (32.0-37.0); MEAN CORPUSCULAR VOLUME 93.8 fl (82.0-101.0); MEAN PLATELET VOLUME 13.7 fl (7.4-10.4); MONOCYTE # 0.2 10^3/ul (0.3-0.9); MONOCYTES % 3.5 % (0.0-11.0); NEUTROPHILS % 83.1 % (39.0-77.0); PLATELET COUNT 135 10^3/UL (140-415); POSITIVE DIFF @See below; RED BLOOD COUNT 2.57 10^6/ul (4.70-6.10); RED CELL DISTRIBUTION WIDTH 16.6 % (11.5-14.5)
[2018-12-30 07:26] LABS: HEMOGLOBIN 6.9 g/dl (14.0-18.0); PATH REVIEW? YES
[2018-12-30 07:37] LABS: LACTIC ACID 1.1 mmol/L (0.5-2.0)
[2018-12-30 07:46] LABS: ANION GAP 6 (5-13); BLOOD UREA NITROGEN 56 mg/dl (7-20); CALCIUM 8.6 mg/dl (8.4-10.2); CARBON DIOXIDE 36 mmol/L (21-31); CHLORIDE 120 mmol/L (97-110); CREATININE 1.22 mg/dl (0.61-1.24); GLUCOSE 132 mg/dl (70-220); MAGNESIUM 2.7 mg/dl (1.7-2.5); PHOSPHORUS 2.9 mg/dl (2.5-4.9); POTASSIUM 3.4 mmol/L (3.5-5.1)
[2018-12-30 07:47] LABS: CHOL/HDL RATIO 4.4 RATIO; HDL CHOLESTEROL 25 mg/dl (31-75); LDL CHOLESTEROL,CALCULATED 52 mg/dl; TRIGLYCERIDES 171 mg/dl (0-149)
[2018-12-30 07:47] LABS: CHOLESTEROL 111 mg/dl (100-200)
[2018-12-30 07:53] LABS: SODIUM 162 mmol/L (135-144)
[2018-12-30 09:01] LABS: ANISOCYTOSIS 2+ (0-0); BAND NEUTROPHILS #M 0.9 10^3/ul (0.0-0.6); BAND NEUTROPHILS % (M) 15 % (0-4); BASOPHILS % (M) 1 % (0-2); EOSINOPHILS % (M) 5 % (0-7); GIANT THROMBO% (M) 3 % (0-0); LYMPHOCYTES #M 0.6 10^3/ul (0.8-2.9); LYMPHOCYTES % (M) 10 % (15-51); MICROCYTOSIS 2+ (0-0); MONOCYTES % (M) 1 % (0-11); PLATELET ESTIMATE DECREASED; POLYCHROMASIA 3+ (0-0); SEG NEUT #M 4.1 10^3/ul (1.6-7.5); SEGMENTED NEUTROPHILS (M) % 68 % (39-77); SMUDGE%M 3 % (0-0)
[2018-12-30 11:27] LABS: HEMOGLOBIN 7.6 g/dl (14.0-18.0)
[2018-12-30] MEDS: POTASSIUM CHLORIDE 20 MEQ POWDER FOR ORAL SOLN GTB (11:37)
[2018-12-30] MEDS: ACETAMINOPHEN 325 MG TAB GTB ×2 (13:45→21:23)
[2018-12-30 14:57] LABS: ANION GAP 1 (5-13); BLOOD UREA NITROGEN 45 mg/dl (7-20); CALCIUM 9.3 mg/dl (8.4-10.2); CARBON DIOXIDE 35 mmol/L (21-31); CHLORIDE 126 mmol/L (97-110); CREATININE 1.36 mg/dl (0.61-1.24); GLUCOSE 129 mg/dl (70-220); POTASSIUM 3.4 mmol/L (3.5-5.1)
[2018-12-30 15:06] LABS: SODIUM 162 mmol/L (135-144)
[2018-12-31] MEDS: PIPER-TAZO 3.375 GM IV (PMX) 100 ML IVPB ×4 (00:28→17:12)
[2018-12-31] MEDS: SOD CHLORIDE 0.45% 1,000 ML IV ×4 (00:42→16:21)
[2018-12-31] MEDS: LEVALBUTEROL (NEB) 0.63 MG/3 ML AMP HHN ×4 (01:21→20:08)
[2018-12-31] MEDS ORDERED: ACCU-CHEK XX (02:00)
[2018-12-31] MEDS: VANCOMYCIN HCL 1.25 GM in SOD CHLORIDE 0.9% 250 ML IVPB (05:28)
[2018-12-31] MEDS: INSULIN ASPART [NOVOLOG] 3 ML PEN SC ×4 (06:00→17:18)
[2018-12-31 06:01] LABS: ADD MAN DIFF? NO
[2018-12-31 06:09] LABS: ABNORMAL IP MESSAGE 1; BASOPHILS % 0.3 % (0.0-2.0); EOSINOPHILS # 0.2 10^3/ul (0.0-0.5); EOSINOPHILS % 4.6 % (0.0-7.0); HEMATOCRIT 23.7 % (42.0-52.0); LYMPHOCYTES # 0.9 10^3/ul (0.8-2.9); LYMPHOCYTES % 26.5 % (15.0-51.0); MEAN CORPUSCULAR HEMOGLOBIN 26.5 pg (29.0-33.0); MEAN CORPUSCULAR HGB CONC 27.8 g/dl (32.0-37.0); MEAN CORPUSCULAR VOLUME 95.2 fl (82.0-101.0); MEAN PLATELET VOLUME 13.7 fl (7.4-10.4); MONOCYTE # 0.2 10^3/ul (0.3-0.9); MONOCYTES % 6.6 % (0.0-11.0); NEUTROPHIL # 2.1 10^3/ul (1.6-7.5); NEUTROPHILS % 61.4 % (39.0-77.0); PLATELET COUNT 124 10^3/UL (140-415); POSITIVE DIFF @See below; RED BLOOD COUNT 2.49 10^6/ul (4.70-6.10); RED CELL DISTRIBUTION WIDTH 16.4 % (11.5-14.5)
[2018-12-31 06:09] LABS: WHITE BLOOD COUNT 3.5 10^3/ul (4.8-10.8)
[2018-12-31 06:33] LABS: ANION GAP 4 (5-13); BLOOD UREA NITROGEN 36 mg/dl (7-20); CALCIUM 8.5 mg/dl (8.4-10.2); CARBON DIOXIDE 33 mmol/L (21-31); CHLORIDE 121 mmol/L (97-110); CREATININE 1.14 mg/dl (0.61-1.24); GLUCOSE 108 mg/dl (70-220); MAGNESIUM 2.5 mg/dl (1.7-2.5); PHOSPHORUS 2.6 mg/dl (2.5-4.9); SODIUM 158 mmol/L (135-144)
[2018-12-31 06:37] LABS: POTASSIUM 2.9 mmol/L (3.5-5.1)
[2018-12-31] MEDS: ACETAMINOPHEN 325 MG TAB GTB (06:47)
[2018-12-31 06:59] LABS: HEMOGLOBIN 6.6 g/dl (14.0-18.0)
[2018-12-31] MEDS: POTASSIUM CHLORIDE 20 MEQ POWDER FOR ORAL SOLN GTB ×2 (07:42→21:54)
[2018-12-31] MEDS ORDERED: POTASSIUM CHLORIDE 20 MEQ POWDER FOR ORAL SOLN GTB (09:00)
[2018-12-31 09:26] LABS: IRON < 10 ug/dl (35-150)
[2018-12-31 09:33] LABS: TOTAL IRON BINDING CAPACITY 147 ug/dl (241-421)
[2018-12-31] MEDS: METHYLPREDNISOLONE 125 MG INJ IV (10:10)
[2018-12-31 11:15] LABS: ADD MAN DIFF? NO
[2018-12-31 11:17] LABS: WHITE BLOOD COUNT 4.3 10^3/ul (4.8-10.8)
[2018-12-31 11:17] LABS: ABNORMAL IP MESSAGE 1; BASOPHILS % 0.2 % (0.0-2.0); EOSINOPHILS # 0.2 10^3/ul (0.0-0.5); EOSINOPHILS % 5.4 % (0.0-7.0); HEMATOCRIT 25.9 % (42.0-52.0); HEMOGLOBIN 7.2 g/dl (14.0-18.0); LYMPHOCYTES # 1.1 10^3/ul (0.8-2.9); LYMPHOCYTES % 25.3 % (15.0-51.0); MEAN CORPUSCULAR HEMOGLOBIN 26.1 pg (29.0-33.0); MEAN CORPUSCULAR HGB CONC 27.8 g/dl (32.0-37.0); MEAN CORPUSCULAR VOLUME 93.8 fl (82.0-101.0); MEAN PLATELET VOLUME 13.4 fl (7.4-10.4); MONOCYTE # 0.3 10^3/ul (0.3-0.9); MONOCYTES % 6.6 % (0.0-11.0); NEUTROPHIL # 2.7 10^3/ul (1.6-7.5); PLATELET COUNT 126 10^3/UL (140-415); POSITIVE DIFF @See below; RED BLOOD COUNT 2.76 10^6/ul (4.70-6.10); RED CELL DISTRIBUTION WIDTH 16.6 % (11.5-14.5)
[2018-12-31 17:08] LABS: POTASSIUM 3.8 mmol/L (3.5-5.1)
[2018-12-31 20:22] LABS: OCCULT BLOOD STOOL NEGATIVE (NEGATIVE)
[2019-01-01] MEDS: PIPER-TAZO 3.375 GM IV (PMX) 100 ML IVPB ×3 (00:04→11:47)
[2019-01-01] MEDS: INSULIN ASPART [NOVOLOG] 3 ML PEN SC ×4 (00:10→16:18)
[2019-01-01] MEDS: LEVALBUTEROL (NEB) 0.63 MG/3 ML AMP HHN ×4 (01:30→20:01)
[2019-01-01] MEDS: SOD CHLORIDE 0.45% 1,000 ML IV ×3 (06:12→16:17)
[2019-01-01 06:28] LABS: WHITE BLOOD COUNT 3.9 10^3/ul (4.8-10.8)
[2019-01-01 06:28] LABS: ABNORMAL IP MESSAGE 1; HEMATOCRIT 22.9 % (42.0-52.0); MEAN CORPUSCULAR HEMOGLOBIN 26.8 pg (29.0-33.0); MEAN CORPUSCULAR HGB CONC 29.3 g/dl (32.0-37.0); MEAN CORPUSCULAR VOLUME 91.6 fl (82.0-101.0); MEAN PLATELET VOLUME 13.8 fl (7.4-10.4); PLATELET COUNT 134 10^3/UL (140-415); POSITIVE DIFF @See below; RED CELL DISTRIBUTION WIDTH 15.6 % (11.5-14.5)
[2019-01-01 07:02] LABS: ANION GAP 5 (5-13); BLOOD UREA NITROGEN 29 mg/dl (7-20); CALCIUM 9.3 mg/dl (8.4-10.2); CARBON DIOXIDE 28 mmol/L (21-31); CHLORIDE 119 mmol/L (97-110); GLUCOSE 160 mg/dl (70-220); POTASSIUM 3.7 mmol/L (3.5-5.1); SODIUM 152 mmol/L (135-144)
[2019-01-01 07:07] LABS: ADD MAN DIFF? YES; HEMOGLOBIN 6.7 g/dl (14.0-18.0)
[2019-01-01 07:08] LABS: VANCOMYCIN,TROUGH 13.8 ug/ml (10.0-20.0)
[2019-01-01] MEDS: VANCOMYCIN HCL 1.25 GM in SOD CHLORIDE 0.9% 250 ML IVPB (07:26)
[2019-01-01 07:28] LABS: PHOSPHORUS 2.6 mg/dl (2.5-4.9)
[2019-01-01 07:28] LABS: MAGNESIUM 2.3 mg/dl (1.7-2.5)
[2019-01-01 08:21] LABS: ANISOCYTOSIS 1+ (0-0); BAND NEUTROPHILS #M 1.1 10^3/ul (0.0-0.6); BAND NEUTROPHILS % (M) 29 % (0-4); GIANT THROMBO% (M) 3 % (0-0); HYPOCHROMASIA 2+ (0-0); LYMPHOCYTES #M 0.7 10^3/ul (0.8-2.9); LYMPHOCYTES % (M) 18 % (15-51); MICROCYTOSIS 1+ (0-0); MONOCYTES % (M) 1 % (0-11); PLATELET ESTIMATE NORMAL; SEG NEUT #M 2.1 10^3/ul (1.6-7.5); SEGMENTED NEUTROPHILS (M) % 52 % (39-77); SMUDGE%M 1 % (0-0)
[2019-01-01 10:41] LABS: ADD MAN DIFF? NO
[2019-01-01 10:46] LABS: WHITE BLOOD COUNT 4.6 10^3/ul (4.8-10.8)
[2019-01-01 10:46] LABS: ABNORMAL IP MESSAGE 1; EOSINOPHILS % 0.2 % (0.0-7.0); HEMATOCRIT 21.9 % (42.0-52.0); LYMPHOCYTES # 0.7 10^3/ul (0.8-2.9); LYMPHOCYTES % 16.1 % (15.0-51.0); MEAN CORPUSCULAR HEMOGLOBIN 26.6 pg (29.0-33.0); MEAN CORPUSCULAR HGB CONC 29.2 g/dl (32.0-37.0); MEAN CORPUSCULAR VOLUME 90.9 fl (82.0-101.0); MEAN PLATELET VOLUME 12.9 fl (7.4-10.4); MONOCYTE # 0.3 10^3/ul (0.3-0.9); MONOCYTES % 6.7 % (0.0-11.0); NEUTROPHIL # 3.5 10^3/ul (1.6-7.5); NEUTROPHILS % 76.3 % (39.0-77.0); PLATELET COUNT 123 10^3/UL (140-415); POSITIVE DIFF @See below; RED BLOOD COUNT 2.41 10^6/ul (4.70-6.10); RED CELL DISTRIBUTION WIDTH 15.4 % (11.5-14.5)
[2019-01-01 10:56] LABS: HEMOGLOBIN 6.4 g/dl (14.0-18.0)
[2019-01-01] MEDS: SOD CHLORIDE 0.9% 250 ML IV* (11:17)
[2019-01-01 14:02] LABS: IMMEDIATE SPIN CROSSMATCH 1 1
[2019-01-01] MEDS: METHYLPREDNISOLONE 40 MG INJ IV ×2 (14:52→22:04)
[2019-01-01] MEDS: CEFEPIME 1GM/50 ML (PMX) 50 ML IVPB ×2 (14:52→21:59)
[2019-01-01] MEDS: ZYVOX 600 MG TAB PO ×2 (14:52→22:04)
[2019-01-02] MEDS: SOD CHLORIDE 0.45% 1,000 ML IV (00:33)
[2019-01-02] MEDS: INSULIN ASPART [NOVOLOG] 3 ML PEN SC ×4 (00:46→17:23)
[2019-01-02] MEDS: LEVALBUTEROL (NEB) 0.63 MG/3 ML AMP HHN ×4 (01:37→21:49)
[2019-01-02] MEDS: METHYLPREDNISOLONE 40 MG INJ IV ×2 (06:05→20:18)
[2019-01-02 06:42] LABS: WHITE BLOOD COUNT 5.6 10^3/ul (4.8-10.8)
[2019-01-02 06:42] LABS: ABNORMAL IP MESSAGE 1; HEMATOCRIT 27.9 % (42.0-52.0); HEMOGLOBIN 8.8 g/dl (14.0-18.0); MEAN CORPUSCULAR HEMOGLOBIN 26.8 pg (29.0-33.0); MEAN CORPUSCULAR HGB CONC 31.5 g/dl (32.0-37.0); MEAN CORPUSCULAR VOLUME 85.1 fl (82.0-101.0); MEAN PLATELET VOLUME 12.9 fl (7.4-10.4); PLATELET COUNT 159 10^3/UL (140-415); POSITIVE DIFF @See below; RED BLOOD COUNT 3.28 10^6/ul (4.70-6.10); RED CELL DISTRIBUTION WIDTH 16.7 % (11.5-14.5)
[2019-01-02 06:44] LABS: ADD MAN DIFF? YES
[2019-01-02 07:10] LABS: ANION GAP 3 (5-13); BLOOD UREA NITROGEN 24 mg/dl (7-20); CALCIUM 9.4 mg/dl (8.4-10.2); CARBON DIOXIDE 31 mmol/L (21-31); CHLORIDE 114 mmol/L (97-110); CREATININE 0.74 mg/dl (0.61-1.24); GLUCOSE 257 mg/dl (70-220); POTASSIUM 3.5 mmol/L (3.5-5.1); SODIUM 148 mmol/L (135-144)
[2019-01-02 07:18] LABS: PHOSPHORUS 2.9 mg/dl (2.5-4.9)
[2019-01-02 07:18] LABS: MAGNESIUM 2.1 mg/dl (1.7-2.5)
[2019-01-02 08:17] LABS: ANISOCYTOSIS 1+ (0-0); ERYTHROBLAST% (NRBC) (M) 1 % (0-0); GIANT THROMBO% (M) 1 % (0-0); LYMPHOCYTES #M 0.3 10^3/ul (0.8-2.9); LYMPHOCYTES % (M) 6 % (15-51); MICROCYTOSIS 1+ (0-0); MONOCYTES % (M) 1 % (0-11); PLATELET ESTIMATE NORMAL; POLYCHROMASIA 3+ (0-0); SEGMENTED NEUTROPHILS (M) % 93 % (39-77); SMUDGE%M 7 % (0-0)
[2019-01-02] MEDS: CEFEPIME 1GM/50 ML (PMX) 50 ML IVPB ×2 (08:22→20:22)
[2019-01-02] MEDS: ZYVOX 600 MG TAB PO ×2 (08:26→20:18)
[2019-01-02] MEDS ORDERED: hydrALAzine 20 MG INJ IV (08:30)
[2019-01-02] MEDS: AMLODIPINE 10 MG TAB GTB (09:22)
[2019-01-02 15:01] LABS: CREATININE, RANDOM URINE 73 mg/dL (20-320); MICROALBUMIN 6.9 mg/dL; MICROALBUMIN/CREATININE RATIO 95 (<30)
[2019-01-03] MEDS: INSULIN ASPART [NOVOLOG] 3 ML PEN SC ×5 (01:57→23:49)
[2019-01-03] MEDS: LEVALBUTEROL (NEB) 0.63 MG/3 ML AMP HHN ×4 (02:23→20:55)
[2019-01-03 05:59] LABS: ADD MAN DIFF? NO
[2019-01-03 06:09] LABS: WHITE BLOOD COUNT 9.6 10^3/ul (4.8-10.8)
[2019-01-03 06:09] LABS: ABNORMAL IP MESSAGE 1; BASOPHILS % 0.1 % (0.0-2.0); HEMATOCRIT 28.5 % (42.0-52.0); LYMPHOCYTES # 0.5 10^3/ul (0.8-2.9); LYMPHOCYTES % 5.4 % (15.0-51.0); MEAN CORPUSCULAR HEMOGLOBIN 26.9 pg (29.0-33.0); MEAN CORPUSCULAR HGB CONC 31.6 g/dl (32.0-37.0); MEAN CORPUSCULAR VOLUME 85.3 fl (82.0-101.0); MONOCYTE # 0.3 10^3/ul (0.3-0.9); MONOCYTES % 2.7 % (0.0-11.0); NEUTROPHIL # 8.7 10^3/ul (1.6-7.5); NEUTROPHILS % 91.2 % (39.0-77.0); PLATELET COUNT 173 10^3/UL (140-415); POSITIVE DIFF @See below; RED BLOOD COUNT 3.34 10^6/ul (4.70-6.10); RED CELL DISTRIBUTION WIDTH 15.8 % (11.5-14.5)
[2019-01-03 06:34] LABS: MAGNESIUM 2.2 mg/dl (1.7-2.5)
[2019-01-03 06:34] LABS: PHOSPHORUS 2.9 mg/dl (2.5-4.9)
[2019-01-03 06:44] LABS: ANION GAP 4 (5-13); BLOOD UREA NITROGEN 26 mg/dl (7-20); CALCIUM 9.5 mg/dl (8.4-10.2); CARBON DIOXIDE 34 mmol/L (21-31); CHLORIDE 111 mmol/L (97-110); CREATININE 0.71 mg/dl (0.61-1.24); GLUCOSE 255 mg/dl (70-220); POTASSIUM 3.4 mmol/L (3.5-5.1); SODIUM 149 mmol/L (135-144)
[2019-01-03] MEDS: METHYLPREDNISOLONE 40 MG INJ IV (08:52)
[2019-01-03] MEDS: CEFEPIME 1GM/50 ML (PMX) 50 ML IVPB ×2 (08:53→20:30)
[2019-01-03] MEDS: ZYVOX 600 MG TAB PO ×2 (08:54→20:31)
[2019-01-03] MEDS: AMLODIPINE 10 MG TAB GTB (08:54)
[2019-01-03] MEDS: POTASSIUM CHLORIDE 20 MEQ POWDER FOR ORAL SOLN GTB (10:30)
[2019-01-03] MEDS: DESMOPRESSIN 4 MCG INJ IV (10:30)
[2019-01-03] MEDS: INSULIN GLARGINE [LANTus] (100 UNITS/ML) SYG SC (12:56)
[2019-01-03 14:38] LABS: ANION GAP 2 (5-13); BLOOD UREA NITROGEN 25 mg/dl (7-20); CALCIUM 9.6 mg/dl (8.4-10.2); CARBON DIOXIDE 32 mmol/L (21-31); CHLORIDE 110 mmol/L (97-110); CREATININE 0.67 mg/dl (0.61-1.24); GLUCOSE 249 mg/dl (70-220); POTASSIUM 3.8 mmol/L (3.5-5.1); SODIUM 144 mmol/L (135-144)
[2019-01-03] MEDS ORDERED: COLLAGENASE 5 GM (UD JAR) TOP (17:15)
[2019-01-04] MEDS: LEVALBUTEROL (NEB) 0.63 MG/3 ML AMP HHN ×4 (02:02→19:29)
[2019-01-04 05:56] LABS: ADD MAN DIFF? NO
[2019-01-04] MEDS: INSULIN ASPART [NOVOLOG] 3 ML PEN SC ×4 (05:56→23:13)
[2019-01-04 06:01] LABS: WHITE BLOOD COUNT 8.2 10^3/ul (4.8-10.8)
[2019-01-04 06:01] LABS: BASOPHILS % 0.1 % (0.0-2.0); EOSINOPHILS % 0.4 % (0.0-7.0); HEMATOCRIT 27.5 % (42.0-52.0); HEMOGLOBIN 8.5 g/dl (14.0-18.0); LYMPHOCYTES # 1.5 10^3/ul (0.8-2.9); LYMPHOCYTES % 17.9 % (15.0-51.0); MEAN CORPUSCULAR HEMOGLOBIN 26.2 pg (29.0-33.0); MEAN CORPUSCULAR HGB CONC 30.9 g/dl (32.0-37.0); MEAN CORPUSCULAR VOLUME 84.6 fl (82.0-101.0); MEAN PLATELET VOLUME 12.4 fl (7.4-10.4); MONOCYTE # 0.5 10^3/ul (0.3-0.9); MONOCYTES % 6.5 % (0.0-11.0); NEUTROPHILS % 73.6 % (39.0-77.0); PLATELET COUNT 188 10^3/UL (140-415); RED BLOOD COUNT 3.25 10^6/ul (4.70-6.10); RED CELL DISTRIBUTION WIDTH 15.4 % (11.5-14.5)
[2019-01-04 06:17] LABS: ANION GAP 3 (5-13); BLOOD UREA NITROGEN 25 mg/dl (7-20); CALCIUM 9.2 mg/dl (8.4-10.2); CARBON DIOXIDE 34 mmol/L (21-31); CHLORIDE 107 mmol/L (97-110); CREATININE 0.64 mg/dl (0.61-1.24); GLUCOSE 137 mg/dl (70-220); PHOSPHORUS 2.4 mg/dl (2.5-4.9); POTASSIUM 3.3 mmol/L (3.5-5.1); SODIUM 144 mmol/L (135-144)
[2019-01-04] MEDS: COLLAGENASE 5 GM (UD JAR) TOP (08:30)
[2019-01-04] MEDS: ZYVOX 600 MG TAB PO ×2 (08:31→21:12)
[2019-01-04] MEDS: CEFEPIME 1GM/50 ML (PMX) 50 ML IVPB ×2 (08:31→21:13)
[2019-01-04] MEDS: AMLODIPINE 10 MG TAB GTB (08:31)
[2019-01-04] MEDS: DAKINS 0.0125%(1/40) 473 ML SOLUTION TP (08:46)
[2019-01-04] MEDS: INSULIN GLARGINE [LANTus] (100 UNITS/ML) SYG SC (08:48)
[2019-01-04] MEDS: POTASSIUM CHLORIDE 20 MEQ POWDER FOR ORAL SOLN GTB (10:20)
[2019-01-04] MEDS: DESMOPRESSIN 4 MCG INJ IV (10:53)
[2019-01-04 11:35] LABS: ADD UMIC YES; UR ASCORBIC ACID NEGATIVE (NEGATIVE); UR BACTERIA FEW /HPF (NONE SEEN); UR BILIRUBIN (Dip) NEGATIVE (NEGATIVE); UR BLOOD (Dip) NEGATIVE (NEGATIVE); UR BUDDING YEAST MANY /HPF (NONE SEEN); UR CLARITY CLEAR (CLEAR); UR COLOR STRAW (YELLOW); UR GLUCOSE (Dip) NEGATIVE (NEGATIVE); UR KETONES (Dip) NEGATIVE (NEGATIVE); UR LEUKOCYTE ESTERASE (Dip) TRACE Leu/ul (NEGATIVE); UR NITRITE (Dip) NEGATIVE (NEGATIVE); UR RBC 10 /HPF (0-5); UR TOTAL PROTEIN (Dip) NEGATIVE (NEGATIVE); UR UROBILINOGEN (Dip) NEGATIVE (NEGATIVE); UR WBC 9 /HPF (0-5)
[2019-01-04 11:43] LABS: SODIUM,URINE RANDOM 129 mmol/L (30-90)
[2019-01-04 12:37] LABS: OSMOLALITY,URINE 396 mOsm/kg (250-1200)
[2019-01-04 17:46] LABS: ANION GAP 4 (5-13); BLOOD UREA NITROGEN 23 mg/dl (7-20); CALCIUM 9.3 mg/dl (8.4-10.2); CARBON DIOXIDE 32 mmol/L (21-31); CHLORIDE 107 mmol/L (97-110); CREATININE 0.64 mg/dl (0.61-1.24); GLUCOSE 123 mg/dl (70-220); POTASSIUM 3.6 mmol/L (3.5-5.1); SODIUM 143 mmol/L (135-144)
[2019-01-05] MEDS: LEVALBUTEROL (NEB) 0.63 MG/3 ML AMP HHN ×4 (01:53→19:40)
[2019-01-05] MEDS: LANSOPRAZOLE 15 MG CAP GTB (05:23)
[2019-01-05] MEDS: INSULIN ASPART [NOVOLOG] 3 ML PEN SC ×3 (05:25→18:00)
[2019-01-05 05:39] LABS: ADD MAN DIFF? NO
[2019-01-05 05:45] LABS: BASOPHILS % 0.1 % (0.0-2.0); EOSINOPHILS # 0.1 10^3/ul (0.0-0.5); EOSINOPHILS % 1.5 % (0.0-7.0); HEMATOCRIT 31.5 % (42.0-52.0); HEMOGLOBIN 9.8 g/dl (14.0-18.0); LYMPHOCYTES # 1.7 10^3/ul (0.8-2.9); LYMPHOCYTES % 20.3 % (15.0-51.0); MEAN CORPUSCULAR HEMOGLOBIN 26.2 pg (29.0-33.0); MEAN CORPUSCULAR HGB CONC 31.1 g/dl (32.0-37.0); MEAN CORPUSCULAR VOLUME 84.2 fl (82.0-101.0); MEAN PLATELET VOLUME 11.8 fl (7.4-10.4); MONOCYTE # 0.5 10^3/ul (0.3-0.9); MONOCYTES % 6.6 % (0.0-11.0); NEUTROPHIL # 5.7 10^3/ul (1.6-7.5); NEUTROPHILS % 69.7 % (39.0-77.0); PLATELET COUNT 225 10^3/UL (140-415); RED BLOOD COUNT 3.74 10^6/ul (4.70-6.10); RED CELL DISTRIBUTION WIDTH 15.6 % (11.5-14.5)
[2019-01-05 05:45] LABS: WHITE BLOOD COUNT 8.2 10^3/ul (4.8-10.8)
[2019-01-05 06:24] LABS: ANION GAP 4 (5-13); BLOOD UREA NITROGEN 22 mg/dl (7-20); CARBON DIOXIDE 33 mmol/L (21-31); CHLORIDE 102 mmol/L (97-110); CREATININE 0.59 mg/dl (0.61-1.24); GLUCOSE 116 mg/dl (70-220); PHOSPHORUS 2.7 mg/dl (2.5-4.9); POTASSIUM 3.5 mmol/L (3.5-5.1); SODIUM 139 mmol/L (135-144)
[2019-01-05] MEDS: DAKINS 0.0125%(1/40) 473 ML SOLUTION TP (09:00)
[2019-01-05] MEDS: COLLAGENASE 5 GM (UD JAR) TOP (09:00)
[2019-01-05] MEDS: AMLODIPINE 10 MG TAB GTB (09:01)
[2019-01-05] MEDS: CEFEPIME 1GM/50 ML (PMX) 50 ML IVPB ×2 (09:01→20:58)
[2019-01-05] MEDS: ZYVOX 600 MG TAB GTB ×2 (09:01→20:58)
[2019-01-05] MEDS: INSULIN GLARGINE [LANTus] (100 UNITS/ML) SYG SC (09:06)
[2019-01-05] MEDS: ENOXAPARIN 40 MG/0.4 ML SYG SC (09:06)
[2019-01-05] MEDS ORDERED: VANCOMYCIN IV PER PHARMACY XX (14:30)
[2019-01-05 15:17] LABS: CREATININE, RANDOM URINE 22 mg/dL (20-320); MICROALBUMIN 9.5 mg/dL; MICROALBUMIN/CREATININE RATIO 432 (<30)
[2019-01-05] MEDS: VANCOMYCIN HCL 1.5 GM in SOD CHLORIDE 0.9% 250 ML IVPB (18:05)
[2019-01-06] MEDS: LEVALBUTEROL (NEB) 0.63 MG/3 ML AMP HHN ×4 (03:03→20:47)
[2019-01-06] MEDS: VANCOMYCIN 750 MG (PMX) 250 ML IVPB ×2 (04:23→17:46)
[2019-01-06] MEDS: LANSOPRAZOLE 15 MG CAP GTB (05:19)
[2019-01-06] MEDS: INSULIN ASPART [NOVOLOG] 3 ML PEN SC ×4 (05:37→17:58)
[2019-01-06 05:54] LABS: ADD MAN DIFF? NO
[2019-01-06 06:04] LABS: WHITE BLOOD COUNT 9.8 10^3/ul (4.8-10.8)
[2019-01-06 06:04] LABS: BASOPHILS % 0.2 % (0.0-2.0); EOSINOPHILS # 0.2 10^3/ul (0.0-0.5); EOSINOPHILS % 1.5 % (0.0-7.0); HEMATOCRIT 30.6 % (42.0-52.0); HEMOGLOBIN 9.7 g/dl (14.0-18.0); LYMPHOCYTES # 1.3 10^3/ul (0.8-2.9); LYMPHOCYTES % 13.4 % (15.0-51.0); MEAN CORPUSCULAR HEMOGLOBIN 26.9 pg (29.0-33.0); MEAN CORPUSCULAR HGB CONC 31.7 g/dl (32.0-37.0); MEAN CORPUSCULAR VOLUME 84.8 fl (82.0-101.0); MEAN PLATELET VOLUME 11.9 fl (7.4-10.4); MONOCYTE # 0.5 10^3/ul (0.3-0.9); MONOCYTES % 5.5 % (0.0-11.0); NEUTROPHIL # 7.6 10^3/ul (1.6-7.5); NEUTROPHILS % 77.5 % (39.0-77.0); PLATELET COUNT 269 10^3/UL (140-415); RED BLOOD COUNT 3.61 10^6/ul (4.70-6.10); RED CELL DISTRIBUTION WIDTH 15.4 % (11.5-14.5)
[2019-01-06 07:12] LABS: ANION GAP 7 (5-13); BLOOD UREA NITROGEN 19 mg/dl (7-20); CALCIUM 9.6 mg/dl (8.4-10.2); CARBON DIOXIDE 31 mmol/L (21-31); CHLORIDE 103 mmol/L (97-110); CREATININE 0.71 mg/dl (0.61-1.24); GLUCOSE 113 mg/dl (70-220); MAGNESIUM 2.1 mg/dl (1.7-2.5); PHOSPHORUS 3.3 mg/dl (2.5-4.9); SODIUM 141 mmol/L (135-144)
[2019-01-06] MEDS: ZYVOX 600 MG TAB GTB (08:21)
[2019-01-06] MEDS: ENOXAPARIN 40 MG/0.4 ML SYG SC (08:21)
[2019-01-06] MEDS: AMLODIPINE 10 MG TAB GTB (08:22)
[2019-01-06] MEDS: CEFEPIME 1GM/50 ML (PMX) 50 ML IVPB ×2 (08:26→21:26)
[2019-01-06] MEDS: INSULIN GLARGINE [LANTus] (100 UNITS/ML) SYG SC (08:34)
[2019-01-06] MEDS: COLLAGENASE 5 GM (UD JAR) TOP (14:44)
[2019-01-06] MEDS: DAKINS 0.0125%(1/40) 473 ML SOLUTION TP (14:44)
[2019-01-07] MEDS: INSULIN ASPART [NOVOLOG] 3 ML PEN SC ×4 (00:31→17:57)
[2019-01-07] MEDS: LEVALBUTEROL (NEB) 0.63 MG/3 ML AMP HHN ×4 (01:53→21:22)
[2019-01-07] MEDS: VANCOMYCIN 750 MG (PMX) 250 ML IVPB ×2 (05:12→17:12)
[2019-01-07] MEDS: LANSOPRAZOLE 15 MG CAP GTB (06:19)
[2019-01-07] MEDS: ENOXAPARIN 40 MG/0.4 ML SYG SC (08:28)
[2019-01-07] MEDS: INSULIN GLARGINE [LANTus] (100 UNITS/ML) SYG SC (08:28)
[2019-01-07] MEDS: CEFEPIME 1GM/50 ML (PMX) 50 ML IVPB ×2 (09:13→20:22)
[2019-01-07] MEDS: AMLODIPINE 10 MG TAB GTB (09:13)
[2019-01-07] MEDS: DAKINS 0.0125%(1/40) 473 ML SOLUTION TP (09:14)
[2019-01-07] MEDS: COLLAGENASE 5 GM (UD JAR) TOP (09:14)
[2019-01-07] MEDS: ACETAMINOPHEN 325 MG TAB GTB (09:18)
[2019-01-08] MEDS: LEVALBUTEROL (NEB) 0.63 MG/3 ML AMP HHN ×4 (01:49→20:41)
[2019-01-08] MEDS: LANSOPRAZOLE 15 MG CAP GTB (05:40)
[2019-01-08] MEDS: INSULIN ASPART [NOVOLOG] 3 ML PEN SC ×4 (05:41→17:25)
[2019-01-08 06:03] LABS: BLOOD UREA NITROGEN 15 mg/dl (7-20)
[2019-01-08 06:03] LABS: CREATININE 0.61 mg/dl (0.61-1.24)
[2019-01-08 06:05] LABS: VANCOMYCIN,TROUGH 17.3 ug/ml (10.0-20.0)
[2019-01-08] MEDS: VANCOMYCIN 750 MG (PMX) 250 ML IVPB (06:24)
[2019-01-08] MEDS: INSULIN GLARGINE [LANTus] (100 UNITS/ML) SYG SC (10:04)
[2019-01-08] MEDS: CEFEPIME 1GM/50 ML (PMX) 50 ML IVPB ×2 (10:05→20:19)
[2019-01-08] MEDS: ENOXAPARIN 40 MG/0.4 ML SYG SC (10:05)
[2019-01-08] MEDS: AMLODIPINE 10 MG TAB GTB (10:06)
[2019-01-08] MEDS: COLLAGENASE 5 GM (UD JAR) TOP (10:06)
[2019-01-08] MEDS: DAKINS 0.0125%(1/40) 473 ML SOLUTION TP (10:07)
[2019-01-08] MEDS: VANCOMYCIN 500 MG (PMX) 100 ML IVPB (18:24)
[2019-01-09] MEDS: LEVALBUTEROL (NEB) 0.63 MG/3 ML AMP HHN ×2 (01:10→08:09)
[2019-01-09] MEDS: LANSOPRAZOLE 15 MG CAP GTB (05:16)
[2019-01-09] MEDS: VANCOMYCIN 500 MG (PMX) 100 ML IVPB ×2 (05:16→18:50)
[2019-01-09] MEDS: INSULIN ASPART [NOVOLOG] 3 ML PEN SC ×4 (06:00→17:53)
[2019-01-09] MEDS: CEFEPIME 1GM/50 ML (PMX) 50 ML IVPB ×2 (08:43→20:29)
[2019-01-09] MEDS: COLLAGENASE 5 GM (UD JAR) TOP (08:44)
[2019-01-09] MEDS: AMLODIPINE 10 MG TAB GTB (08:44)
[2019-01-09] MEDS: DAKINS 0.0125%(1/40) 473 ML SOLUTION TP (08:44)
[2019-01-09] MEDS: ENOXAPARIN 40 MG/0.4 ML SYG SC (08:47)
[2019-01-09] MEDS: INSULIN GLARGINE [LANTus] (100 UNITS/ML) SYG SC (08:48)
[2019-01-09] MEDS ORDERED: LEVALBUTEROL (NEB) 0.63 MG/3 ML AMP HHN (10:30)
[2019-01-10 04:09] LABS: ADD MAN DIFF? NO
[2019-01-10 04:13] LABS: BASOPHILS % 0.3 % (0.0-2.0); EOSINOPHILS # 0.1 10^3/ul (0.0-0.5); EOSINOPHILS % 1.9 % (0.0-7.0); HEMATOCRIT 26.5 % (42.0-52.0); HEMOGLOBIN 8.2 g/dl (14.0-18.0); LYMPHOCYTES # 1.2 10^3/ul (0.8-2.9); LYMPHOCYTES % 16.8 % (15.0-51.0); MEAN CORPUSCULAR HEMOGLOBIN 26.9 pg (29.0-33.0); MEAN CORPUSCULAR HGB CONC 30.9 g/dl (32.0-37.0); MEAN CORPUSCULAR VOLUME 86.9 fl (82.0-101.0); MEAN PLATELET VOLUME 9.9 fl (7.4-10.4); MONOCYTE # 0.9 10^3/ul (0.3-0.9); MONOCYTES % 12.7 % (0.0-11.0); NEUTROPHIL # 4.7 10^3/ul (1.6-7.5); NEUTROPHILS % 67.3 % (39.0-77.0); PLATELET COUNT 230 10^3/UL (140-415); RED BLOOD COUNT 3.05 10^6/ul (4.70-6.10); RED CELL DISTRIBUTION WIDTH 15.9 % (11.5-14.5)
[2019-01-10 04:13] LABS: WHITE BLOOD COUNT 6.9 10^3/ul (4.8-10.8)
[2019-01-10 04:49] LABS: ANION GAP 2 (5-13); BLOOD UREA NITROGEN 15 mg/dl (7-20); CALCIUM 9.7 mg/dl (8.4-10.2); CARBON DIOXIDE 36 mmol/L (21-31); CHLORIDE 105 mmol/L (97-110); CREATININE 0.64 mg/dl (0.61-1.24); GLUCOSE 116 mg/dl (70-220); POTASSIUM 3.4 mmol/L (3.5-5.1); SODIUM 143 mmol/L (135-144)
[2019-01-10 05:04] LABS: VANCOMYCIN,TROUGH 16.3 ug/ml (10.0-20.0)
[2019-01-10] MEDS: VANCOMYCIN 500 MG (PMX) 100 ML IVPB ×2 (05:48→17:35)
[2019-01-10] MEDS: LANSOPRAZOLE 15 MG CAP GTB (05:48)
[2019-01-10] MEDS: INSULIN ASPART [NOVOLOG] 3 ML PEN SC ×4 (05:50→17:34)
[2019-01-10] MEDS: CEFEPIME 1GM/50 ML (PMX) 50 ML IVPB ×2 (09:35→21:45)
[2019-01-10] MEDS: INSULIN GLARGINE [LANTus] (100 UNITS/ML) SYG SC (09:35)
[2019-01-10] MEDS: ENOXAPARIN 40 MG/0.4 ML SYG SC (09:35)
[2019-01-10] MEDS: AMLODIPINE 10 MG TAB GTB (09:36)
[2019-01-10] MEDS: DAKINS 0.0125%(1/40) 473 ML SOLUTION TP (09:36)
[2019-01-10] MEDS: COLLAGENASE 5 GM (UD JAR) TOP (09:36)
[2019-01-10] MEDS ORDERED: POTASSIUM CHLORIDE (SR) 20 MEQ TAB PO (10:54)
[2019-01-10] MEDS: POTASSIUM CHLORIDE 20 MEQ POWDER FOR ORAL SOLN GTB (11:38)
[2019-01-10] MEDS: FLUCONAZOLE 100 MG TAB GTB (13:30)
[2019-01-11] MEDS: VANCOMYCIN 500 MG (PMX) 100 ML IVPB ×2 (05:24→17:00)
[2019-01-11] MEDS: LANSOPRAZOLE 15 MG CAP GTB (05:24)
[2019-01-11] MEDS: INSULIN ASPART [NOVOLOG] 3 ML PEN SC ×3 (06:00→12:00)
[2019-01-11] MEDS: CEFEPIME 1GM/50 ML (PMX) 50 ML IVPB (08:12)
[2019-01-11] MEDS: AMLODIPINE 10 MG TAB GTB (08:13)
[2019-01-11] MEDS: ENOXAPARIN 40 MG/0.4 ML SYG SC (08:13)
[2019-01-11] MEDS: FLUCONAZOLE 100 MG TAB GTB (08:13)
[2019-01-11] MEDS: DAKINS 0.0125%(1/40) 473 ML SOLUTION TP (08:14)
[2019-01-11] MEDS: COLLAGENASE 5 GM (UD JAR) TOP (08:15)
[2019-01-11] MEDS: INSULIN GLARGINE [LANTus] (100 UNITS/ML) SYG SC (10:26)
== END 2019-01-11 17:15 | DRG 871 ==
LOC: 2NE 01-04 17:20 → E/R 08:42 → 6WM 12:17
PROVIDERS: Internal Medicine
PROC: 30233N1 Transfusion of Nonautologous Red Blood Cells into Peripheral Vein, Percutaneous Approach (ICD-10-PCS; principal; 2019-01-01)
DX: A41.50 Gram-negative sepsis, unspecified (principal); L89.524 Pressure ulcer of left ankle, stage 4; J69.0 Pneumonitis due to inhalation of food and vomit; J96.92 Respiratory failure, unspecified with hypercapnia; L89.153 Pressure ulcer of sacral region, stage 3; E87.0 Hyperosmolality and hypernatremia; N17.9 Acute kidney failure, unspecified; N39.0 Urinary tract infection, site not specified; E87.2 Acidosis; E44.0 Moderate protein-calorie malnutrition; E11.52 Type 2 diabetes mellitus with diabetic peripheral angiopathy with gangrene; E87.3 Alkalosis; I70.262 Atherosclerosis of native arteries of extremities with gangrene, left leg; G93.49 Other encephalopathy; C79.51 Secondary malignant neoplasm of bone; L03.116 Cellulitis of left lower limb; R65.20 Severe sepsis without septic shock; C61 Malignant neoplasm of prostate; D63.8 Anemia in other chronic diseases classified elsewhere; E11.621 Type 2 diabetes mellitus with foot ulcer; E11.42 Type 2 diabetes mellitus with diabetic polyneuropathy; E11.22 Type 2 diabetes mellitus with diabetic chronic kidney disease; E78.5 Hyperlipidemia, unspecified; E87.6 Hypokalemia; G30.9 Alzheimer's disease, unspecified; F02.80 Dementia in other diseases classified elsewhere, unspecified severity, without behavioral disturbance, psychotic disturbance, mood disturbance, and anxiety; I12.9 Hypertensive chronic kidney disease with stage 1 through stage 4 chronic kidney disease, or unspecified chronic kidney disease; M24.562 Contracture, left knee; M24.561 Contracture, right knee; M19.90 Unspecified osteoarthritis, unspecified site; N18.9 Chronic kidney disease, unspecified; R13.10 Dysphagia, unspecified; B35.1 Tinea unguium; B95.2 Enterococcus as the cause of diseases classified elsewhere; B96.89 Other specified bacterial agents as the cause of diseases classified elsewhere; Z16.21 Resistance to vancomycin; Z22.322 Carrier or suspected carrier of Methicillin resistant Staphylococcus aureus; Z93.1 Gastrostomy status; Z74.01 Bed confinement status; Z68.22 Body mass index [BMI] 22.0-22.9, adult; Z87.891 Personal history of nicotine dependence; Z79.4 Long term (current) use of insulin; Z79.02 Long term (current) use of antithrombotics/antiplatelets
CPT/HCPCS: 36415; 36430; 36600; 71045; 73562; 73610; 73630-LT; 76775; 80048; 80053; 80061; 80202; 81001; 81003; 82043; 82150; 82270; 82565; 82728; 82803; 82962; 83036; 83540; 83605; 83690; 83735; 83880; 83935; 84100; 84132; 84155; 84300; 84484; 84520; 85014; 85018; 85025; 85610; 85730; 86850; 86900; 86901; 86920; 87040-91; 87070; 87081; 87086; 87400; 93005; 93306; 93922; 94640; 94664; 96365; 96366; 96375; 99291-25

== ENCOUNTER 2019-01-30 00:13 | Inpatient (IN) | payer MEDICARE, OTHER ==
[2019-01-30] MEDS: SODIUM CHLORIDE 0.9% 1L BAG IV* (00:51)
[2019-01-30 00:56] LABS: ADD MAN DIFF? NO
[2019-01-30 00:59] LABS: BASOPHILS % 0.3 % (0.0-2.0); EOSINOPHILS # 0.1 10^3/ul (0.0-0.5); EOSINOPHILS % 0.5 % (0.0-7.0); HEMATOCRIT 30.3 % (42.0-52.0); HEMOGLOBIN 9.2 g/dl (14.0-18.0); LYMPHOCYTES # 2.1 10^3/ul (0.8-2.9); LYMPHOCYTES % 13.4 % (15.0-51.0); MEAN CORPUSCULAR HEMOGLOBIN 27.5 pg (29.0-33.0); MEAN CORPUSCULAR HGB CONC 30.4 g/dl (32.0-37.0); MEAN CORPUSCULAR VOLUME 90.4 fl (82.0-101.0); MEAN PLATELET VOLUME 11.4 fl (7.4-10.4); MONOCYTE # 0.9 10^3/ul (0.3-0.9); MONOCYTES % 5.9 % (0.0-11.0); NEUTROPHIL # 12.2 10^3/ul (1.6-7.5); NEUTROPHILS % 79.4 % (39.0-77.0); PLATELET COUNT 291 10^3/UL (140-415); RED BLOOD COUNT 3.35 10^6/ul (4.70-6.10); RED CELL DISTRIBUTION WIDTH 15.8 % (11.5-14.5)
[2019-01-30 00:59] LABS: WHITE BLOOD COUNT 15.4 10^3/ul (4.8-10.8)
[2019-01-30 01:13] LABS: ADD UMIC YES; UR AMORPHOUS CRYSTAL FEW /HPF (NONE SEEN); UR ASCORBIC ACID 40 mg/dL (NEGATIVE); UR BILIRUBIN (Dip) NEGATIVE (NEGATIVE); UR BLOOD (Dip) NEGATIVE (NEGATIVE); UR CLARITY CLOUDY (CLEAR); UR COLOR YELLOW (YELLOW); UR GLUCOSE (Dip) NEGATIVE (NEGATIVE); UR KETONES (Dip) NEGATIVE (NEGATIVE); UR LEUKOCYTE ESTERASE (Dip) NEGATIVE Leu/ul (NEGATIVE); UR NITRITE (Dip) NEGATIVE (NEGATIVE); UR RBC 2 /HPF (0-5); UR SPECIFIC GRAVITY (Dip) 1.015 (1.003-1.030); UR SQUAMOUS EPITHELIAL CELL FEW /HPF (FEW); UR TOTAL PROTEIN (Dip) 2+ mg/dl (NEGATIVE); UR UROBILINOGEN (Dip) NEGATIVE (NEGATIVE); UR WBC 3 /HPF (0-5)
[2019-01-30 01:19] LABS: PROTIME 15.3 Sec (11.9-14.9); PT RATIO 1.2
[2019-01-30 01:20] LABS: PARTIAL THROMBOPLASTIN TIME 37.8 Sec (23.0-35.0)
[2019-01-30 01:23] LABS: ALANINE AMINOTRANSFERASE 22 IU/L (13-69); ALBUMIN/GLOBULIN RATIO 0.83; ALKALINE PHOSPHATASE 84 IU/L (42-121); ANION GAP 4 (5-13); ASPARTATE AMINO TRANSFERASE 56 IU/L (15-46); BILIRUBIN,INDIRECT 0.3 mg/dl (0-1.1); BILIRUBIN,TOTAL 0.3 mg/dl (0.2-1.3); BLOOD UREA NITROGEN 42 mg/dl (7-20); CALCIUM 10.1 mg/dl (8.4-10.2); CARBON DIOXIDE 34 mmol/L (21-31); CHLORIDE 111 mmol/L (97-110); GLUCOSE 185 mg/dl (70-220); POTASSIUM 4.3 mmol/L (3.5-5.1); SODIUM 149 mmol/L (135-144); TOTAL PROTEIN 6.6 g/dl (6.1-8.1)
[2019-01-30] MEDS: VANCOMYCIN 1 GM (PMX) 250 ML IVPB (01:30)
[2019-01-30] MEDS: CEFEPIME 2GM/50 ML (PMX) 50 ML IVPB ×3 (01:40→21:17)
[2019-01-30] MEDS ORDERED: NACL 0.9% 3 ML SYG IV (02:00)
[2019-01-30] MEDS ORDERED: HEPARIN 5,000 UNIT/1 ML VIAL SC (02:00)
[2019-01-30] MEDS ORDERED: VANCOMYCIN IV PER PHARMACY XX (02:30)
[2019-01-30] MEDS: ACETAMINOPHEN 650 MG SUPP PR (03:25)
[2019-01-30 04:45] LABS: LACTIC ACID 1.2 mmol/L (0.5-2.0)
[2019-01-30] MEDS: DEXTROSE 5% 1,000 ML IV ×2 (05:29→15:47)
[2019-01-30] MEDS: HEPARIN 5,000 UNIT/1 ML VIAL SC ×3 (05:46→22:18)
[2019-01-30] MEDS ORDERED: DEXTROSE 50% 50 ML SYRINGE IV (07:00)
[2019-01-30] MEDS ORDERED: GLUCOSE GEL 15 GRAM TUBE PO ×2 (07:00)
[2019-01-30] MEDS ORDERED: GLUCAGON 1 MG INJ IM (07:00)
[2019-01-30] MEDS ORDERED: GLUCOSE GEL 15 GRAM TUBE BUCCAL (07:00)
[2019-01-30 08:13] LABS: ADD MAN DIFF? NO
[2019-01-30 08:19] LABS: BASOPHILS % 0.2 % (0.0-2.0); EOSINOPHILS # 0.1 10^3/ul (0.0-0.5); EOSINOPHILS % 0.4 % (0.0-7.0); HEMOGLOBIN 8.6 g/dl (14.0-18.0); LYMPHOCYTES # 1.8 10^3/ul (0.8-2.9); LYMPHOCYTES % 10.8 % (15.0-51.0); MEAN CORPUSCULAR HEMOGLOBIN 27.4 pg (29.0-33.0); MEAN CORPUSCULAR HGB CONC 29.7 g/dl (32.0-37.0); MEAN CORPUSCULAR VOLUME 92.4 fl (82.0-101.0); MEAN PLATELET VOLUME 12.2 fl (7.4-10.4); MONOCYTE # 1.2 10^3/ul (0.3-0.9); MONOCYTES % 6.9 % (0.0-11.0); NEUTROPHIL # 13.9 10^3/ul (1.6-7.5); NEUTROPHILS % 81.2 % (39.0-77.0); PLATELET COUNT 275 10^3/UL (140-415); POSITIVE DIFF @See below; RED BLOOD COUNT 3.14 10^6/ul (4.70-6.10); RED CELL DISTRIBUTION WIDTH 16.1 % (11.5-14.5)
[2019-01-30 08:19] LABS: WHITE BLOOD COUNT 17.1 10^3/ul (4.8-10.8)
[2019-01-30 08:36] LABS: ALANINE AMINOTRANSFERASE 21 IU/L (13-69); ALBUMIN 2.9 g/dl (3.3-4.9); ALKALINE PHOSPHATASE 77 IU/L (42-121); ANION GAP 2 (5-13); ASPARTATE AMINO TRANSFERASE 73 IU/L (15-46); BILIRUBIN,INDIRECT 0.4 mg/dl (0-1.1); BILIRUBIN,TOTAL 0.4 mg/dl (0.2-1.3); BLOOD UREA NITROGEN 40 mg/dl (7-20); CALCIUM 9.6 mg/dl (8.4-10.2); CARBON DIOXIDE 32 mmol/L (21-31); CHLORIDE 115 mmol/L (97-110); CREATININE 1.44 mg/dl (0.61-1.24); GLUCOSE 175 mg/dl (70-220); MAGNESIUM 2.1 mg/dl (1.7-2.5); POTASSIUM 4.2 mmol/L (3.5-5.1); SODIUM 149 mmol/L (135-144); TOTAL PROTEIN 6.5 g/dl (6.1-8.1)
[2019-01-30 08:38] LABS: LACTIC ACID 1.1 mmol/L (0.5-2.0)
[2019-01-30] MEDS ORDERED: NON-FORMULARY/PATIENT OWN MED (Abiraterone Acetate (Zytiga) 1,000 MG) XX (09:00)
[2019-01-30] MEDS: LINEZOLID 600 MG/300 ML (PMX) 300 ML IVPB ×2 (09:02→21:17)
[2019-01-30] MEDS: INSULIN ASPART [NOVOLOG] 3 ML PEN SC ×4 (09:14→21:44)
[2019-01-30 09:25] LABS: ANISOCYTOSIS 1+ (0-0); BAND NEUTROPHILS #M 2.9 10^3/ul (0.0-0.6); BAND NEUTROPHILS % (M) 17 % (0-4); GIANT THROMBO% (M) 7 % (0-0); LYMPHOCYTES #M 2.2 10^3/ul (0.8-2.9); LYMPHOCYTES % (M) 13 % (15-51); MICROCYTOSIS 1+ (0-0); MONOCYTE #M 1.3 10^3/ul (0.3-0.9); MONOCYTES % (M) 8 % (0-11); PLATELET ESTIMATE NORMAL; POLYCHROMASIA 3+ (0-0); PROMYELOCYTES #M 0.1 10^3/ul (0-0); PROMYELOCYTES % (M) 1 % (0-0); REACTIVE LYMPHOCYTES #M 0.1 10^3/ul (0.0-0.0); REACTIVE LYMPHOCYTES% (M) 1 % (0-0); SEG NEUT #M 10.8 10^3/ul (1.6-7.5); SEGMENTED NEUTROPHILS (M) % 60 % (39-77); SMUDGE%M 4 % (0-0)
[2019-01-30] MEDS ORDERED: PENDING SANTYL ORDER FOR WOUND CARE XX (19:00)
[2019-01-30 19:09] LABS: ADD UMIC YES; UR ASCORBIC ACID NEGATIVE (NEGATIVE); UR BILIRUBIN (Dip) NEGATIVE (NEGATIVE); UR BLOOD (Dip) 1+ mg/dL (NEGATIVE); UR CLARITY CLEAR (CLEAR); UR COLOR YELLOW (YELLOW); UR GLUCOSE (Dip) NEGATIVE (NEGATIVE); UR KETONES (Dip) NEGATIVE (NEGATIVE); UR LEUKOCYTE ESTERASE (Dip) NEGATIVE Leu/ul (NEGATIVE); UR NITRITE (Dip) NEGATIVE (NEGATIVE); UR RBC 1 /HPF (0-5); UR SPECIFIC GRAVITY (Dip) 1.012 (1.003-1.030); UR TOTAL PROTEIN (Dip) 2+ mg/dl (NEGATIVE); UR UROBILINOGEN (Dip) NEGATIVE (NEGATIVE); UR WBC 1 /HPF (0-5)
[2019-01-30 19:34] LABS: SODIUM,URINE RANDOM 83 mmol/L (30-90)
[2019-01-30 19:34] LABS: CREATININE,URINE RANDOM 38.64 mg/dl (20-370)
[2019-01-30] MEDS: INSULIN GLARGINE [LANTus] (100 UNITS/ML) SYG SC (21:45)
[2019-01-31 00:01] LABS: ANION GAP 3 (5-13); BLOOD UREA NITROGEN 32 mg/dl (7-20); CARBON DIOXIDE 32 mmol/L (21-31); CHLORIDE 113 mmol/L (97-110); CREATININE 1.37 mg/dl (0.61-1.24); GLUCOSE 168 mg/dl (70-220); PHOSPHORUS 3.6 mg/dl (2.5-4.9); POTASSIUM 3.5 mmol/L (3.5-5.1); SODIUM 148 mmol/L (135-144)
[2019-01-31] MEDS: ACETAMINOPHEN 650MG/20.3ML CUP GTB (00:43)
[2019-01-31] MEDS: INSULIN ASPART [NOVOLOG] 3 ML PEN SC ×6 (00:53→21:52)
[2019-01-31] MEDS: DEXTROSE 5% 1,000 ML IV ×2 (05:54→16:00)
[2019-01-31] MEDS: HEPARIN 5,000 UNIT/1 ML VIAL SC ×3 (06:14→21:50)
[2019-01-31 06:45] LABS: ADD MAN DIFF? NO
[2019-01-31 06:52] LABS: BASOPHILS % 0.2 % (0.0-2.0); EOSINOPHILS # 0.1 10^3/ul (0.0-0.5); HEMATOCRIT 28.8 % (42.0-52.0); HEMOGLOBIN 8.5 g/dl (14.0-18.0); LYMPHOCYTES # 1.1 10^3/ul (0.8-2.9); MEAN CORPUSCULAR HEMOGLOBIN 27.1 pg (29.0-33.0); MEAN CORPUSCULAR HGB CONC 29.5 g/dl (32.0-37.0); MEAN CORPUSCULAR VOLUME 91.7 fl (82.0-101.0); MEAN PLATELET VOLUME 12.3 fl (7.4-10.4); MONOCYTE # 0.9 10^3/ul (0.3-0.9); MONOCYTES % 7.7 % (0.0-11.0); NEUTROPHIL # 9.8 10^3/ul (1.6-7.5); NEUTROPHILS % 81.5 % (39.0-77.0); PLATELET COUNT 271 10^3/UL (140-415); RED BLOOD COUNT 3.14 10^6/ul (4.70-6.10); RED CELL DISTRIBUTION WIDTH 15.7 % (11.5-14.5)
[2019-01-31 07:28] LABS: ALANINE AMINOTRANSFERASE 22 IU/L (13-69); ALBUMIN 2.7 g/dl (3.3-4.9); ALBUMIN/GLOBULIN RATIO 0.79; ALKALINE PHOSPHATASE 75 IU/L (42-121); ANION GAP 4 (5-13); ASPARTATE AMINO TRANSFERASE 66 IU/L (15-46); BILIRUBIN,INDIRECT 0.3 mg/dl (0-1.1); BILIRUBIN,TOTAL 0.3 mg/dl (0.2-1.3); BLOOD UREA NITROGEN 33 mg/dl (7-20); CALCIUM 10.3 mg/dl (8.4-10.2); CARBON DIOXIDE 31 mmol/L (21-31); CHLORIDE 112 mmol/L (97-110); CREATININE 1.29 mg/dl (0.61-1.24); GLUCOSE 149 mg/dl (70-220); POTASSIUM 3.4 mmol/L (3.5-5.1); SODIUM 147 mmol/L (135-144); TOTAL PROTEIN 6.1 g/dl (6.1-8.1)
[2019-01-31] MEDS: LINEZOLID 600 MG/300 ML (PMX) 300 ML IVPB ×2 (09:00→21:23)
[2019-01-31] MEDS: CHLORHEXIDINE GLUCONATE 15 ML UD CUP MT ×3 (09:00→21:24)
[2019-01-31] MEDS: CEFEPIME 2GM/50 ML (PMX) 50 ML IVPB ×2 (09:14→21:23)
[2019-01-31] MEDS: POTASSIUM CHLORIDE 20 MEQ POWDER FOR ORAL SOLN GTB (10:29)
[2019-01-31] MEDS: ALBUTEROL 0.083% (NEB) 2.5 MG/3 ML AMP HHN ×2 (17:52→21:41)
[2019-01-31] MEDS: ACETYLCYSTEINE 20% 4 ML VIAL NEB ×2 (18:00→21:41)
[2019-01-31] MEDS: INSULIN GLARGINE [LANTus] (100 UNITS/ML) SYG SC (21:51)
[2019-02-01] MEDS: DEXTROSE 5% 1,000 ML IV ×2 (01:06)
[2019-02-01] MEDS: ACETAMINOPHEN 650MG/20.3ML CUP GTB ×2 (01:06→18:59)
[2019-02-01] MEDS: INSULIN ASPART [NOVOLOG] 3 ML PEN SC ×6 (01:28→21:00)
[2019-02-01] MEDS: ACETYLCYSTEINE 20% 4 ML VIAL NEB ×6 (02:01→20:14)
[2019-02-01] MEDS: ALBUTEROL 0.083% (NEB) 2.5 MG/3 ML AMP HHN ×6 (02:01→20:05)
[2019-02-01] MEDS: HEPARIN 5,000 UNIT/1 ML VIAL SC ×3 (05:48→21:26)
[2019-02-01 06:56] LABS: ADD MAN DIFF? NO
[2019-02-01 06:59] LABS: BASOPHILS % 0.2 % (0.0-2.0); EOSINOPHILS % 0.3 % (0.0-7.0); HEMATOCRIT 26.1 % (42.0-52.0); HEMOGLOBIN 8.1 g/dl (14.0-18.0); LYMPHOCYTES # 1.4 10^3/ul (0.8-2.9); MEAN CORPUSCULAR HEMOGLOBIN 27.9 pg (29.0-33.0); MEAN PLATELET VOLUME 12.4 fl (7.4-10.4); MONOCYTES % 8.2 % (0.0-11.0); NEUTROPHIL # 9.9 10^3/ul (1.6-7.5); NEUTROPHILS % 79.7 % (39.0-77.0); PLATELET COUNT 275 10^3/UL (140-415); RED CELL DISTRIBUTION WIDTH 15.6 % (11.5-14.5)
[2019-02-01 06:59] LABS: WHITE BLOOD COUNT 12.5 10^3/ul (4.8-10.8)
[2019-02-01 07:22] LABS: ALANINE AMINOTRANSFERASE 25 IU/L (13-69); ALBUMIN 2.7 g/dl (3.3-4.9); ALBUMIN/GLOBULIN RATIO 0.81; ALKALINE PHOSPHATASE 75 IU/L (42-121); ANION GAP 4 (5-13); ASPARTATE AMINO TRANSFERASE 41 IU/L (15-46); BILIRUBIN,INDIRECT 0.4 mg/dl (0-1.1); BILIRUBIN,TOTAL 0.4 mg/dl (0.2-1.3); BLOOD UREA NITROGEN 37 mg/dl (7-20); CARBON DIOXIDE 28 mmol/L (21-31); CHLORIDE 110 mmol/L (97-110); CREATININE 1.44 mg/dl (0.61-1.24); GLUCOSE 145 mg/dl (70-220); POTASSIUM 3.5 mmol/L (3.5-5.1); SODIUM 142 mmol/L (135-144)
[2019-02-01] MEDS: CHLORHEXIDINE GLUCONATE 15 ML UD CUP MT ×3 (09:33→21:11)
[2019-02-01] MEDS: CEFEPIME 2GM/50 ML (PMX) 50 ML IVPB (09:35)
[2019-02-01] MEDS: LINEZOLID 600 MG/300 ML (PMX) 300 ML IVPB ×2 (09:37→21:11)
[2019-02-01] MEDS: DAKINS 0.0125%(1/40) 473 ML SOLUTION TP (10:50)
[2019-02-01 15:13] LABS: CREATININE, RANDOM URINE 41 mg/dL (20-320); MICROALBUMIN/CREATININE RATIO 122 (<30)
[2019-02-01] MEDS: COLISTIMETHATE 150 MG in SOD CHLORIDE 0.9% 100 ML IVPB (16:08)
[2019-02-01] MEDS: INSULIN GLARGINE [LANTus] (100 UNITS/ML) SYG SC (21:27)
[2019-02-01] MEDS: COLLAGENASE 5 GM (UD JAR) TOP (23:58)
[2019-02-02] MEDS: ALBUTEROL 0.083% (NEB) 2.5 MG/3 ML AMP HHN ×6 (00:26→21:21)
[2019-02-02] MEDS: ACETYLCYSTEINE 20% 4 ML VIAL NEB ×6 (01:00→21:21)
[2019-02-02] MEDS: INSULIN ASPART [NOVOLOG] 3 ML PEN SC ×6 (01:00→21:00)
[2019-02-02] MEDS: DEXTROSE 50% 50 ML SYRINGE IV ×3 (05:17→21:24)
[2019-02-02] MEDS: HEPARIN 5,000 UNIT/1 ML VIAL SC ×2 (05:33→17:56)
[2019-02-02] MEDS: ACETAMINOPHEN 650MG/20.3ML CUP GTB (07:26)
[2019-02-02 08:19] LABS: ADD MAN DIFF? NO
[2019-02-02 08:25] LABS: BASOPHILS % 0.2 % (0.0-2.0); EOSINOPHILS # 0.1 10^3/ul (0.0-0.5); EOSINOPHILS % 0.9 % (0.0-7.0); HEMATOCRIT 25.2 % (42.0-52.0); HEMOGLOBIN 7.7 g/dl (14.0-18.0); LYMPHOCYTES # 1.3 10^3/ul (0.8-2.9); LYMPHOCYTES % 13.3 % (15.0-51.0); MEAN CORPUSCULAR HEMOGLOBIN 27.1 pg (29.0-33.0); MEAN CORPUSCULAR HGB CONC 30.6 g/dl (32.0-37.0); MEAN CORPUSCULAR VOLUME 88.7 fl (82.0-101.0); MEAN PLATELET VOLUME 12.3 fl (7.4-10.4); MONOCYTE # 1.2 10^3/ul (0.3-0.9); MONOCYTES % 12.5 % (0.0-11.0); NEUTROPHIL # 6.8 10^3/ul (1.6-7.5); NEUTROPHILS % 71.8 % (39.0-77.0); PLATELET COUNT 314 10^3/UL (140-415); RED BLOOD COUNT 2.84 10^6/ul (4.70-6.10); RED CELL DISTRIBUTION WIDTH 15.8 % (11.5-14.5)
[2019-02-02 08:25] LABS: WHITE BLOOD COUNT 9.5 10^3/ul (4.8-10.8)
[2019-02-02 08:49] LABS: ALANINE AMINOTRANSFERASE 22 IU/L (13-69); ALBUMIN 2.6 g/dl (3.3-4.9); ALBUMIN/GLOBULIN RATIO 0.74; ALKALINE PHOSPHATASE 85 IU/L (42-121); ANION GAP 5 (5-13); ASPARTATE AMINO TRANSFERASE 31 IU/L (15-46); BILIRUBIN,INDIRECT 0.2 mg/dl (0-1.1); BILIRUBIN,TOTAL 0.2 mg/dl (0.2-1.3); BLOOD UREA NITROGEN 36 mg/dl (7-20); CARBON DIOXIDE 30 mmol/L (21-31); CHLORIDE 109 mmol/L (97-110); CREATININE 1.34 mg/dl (0.61-1.24); GLUCOSE 57 mg/dl (70-220); POTASSIUM 3.2 mmol/L (3.5-5.1); SODIUM 144 mmol/L (135-144); TOTAL PROTEIN 6.1 g/dl (6.1-8.1)
[2019-02-02] MEDS: CHLORHEXIDINE GLUCONATE 15 ML UD CUP MT ×3 (08:49→21:16)
[2019-02-02] MEDS: COLLAGENASE 5 GM (UD JAR) TOP (08:49)
[2019-02-02] MEDS: DAKINS 0.0125%(1/40) 473 ML SOLUTION TP (08:50)
[2019-02-02] MEDS: LINEZOLID 600 MG/300 ML (PMX) 300 ML IVPB ×2 (09:08→21:15)
[2019-02-02] MEDS: COLISTIMETHATE 150 MG in SOD CHLORIDE 0.9% 100 ML IVPB (10:17)
[2019-02-02] MEDS: POTASSIUM CHLORIDE 100 ML IVPB ×2 (12:03→14:30)
[2019-02-02] MEDS: DEXTROSE 5%-0.45% NACL 1,000 ML IV (15:12)
[2019-02-02] MEDS: METOCLOPRAMIDE 10 MG INJ IV (17:56)
[2019-02-03] MEDS: METOCLOPRAMIDE 10 MG INJ IV ×4 (00:13→18:02)
[2019-02-03] MEDS: ACETAMINOPHEN 650MG/20.3ML CUP GTB (00:14)
[2019-02-03] MEDS: ALBUTEROL 0.083% (NEB) 2.5 MG/3 ML AMP HHN ×6 (00:35→21:37)
[2019-02-03] MEDS: ACETYLCYSTEINE 20% 4 ML VIAL NEB ×6 (00:35→21:37)
[2019-02-03] MEDS: INSULIN ASPART [NOVOLOG] 3 ML PEN SC ×6 (01:00→20:55)
[2019-02-03] MEDS: DEXTROSE 5%-0.45% NACL 1,000 ML IV ×2 (05:14→17:40)
[2019-02-03] MEDS: HEPARIN 5,000 UNIT/1 ML VIAL SC ×2 (05:41→18:12)
[2019-02-03 06:17] LABS: ADD MAN DIFF? NO
[2019-02-03 06:26] LABS: ABNORMAL IP MESSAGE 1; BASOPHILS % 0.3 % (0.0-2.0); EOSINOPHILS # 0.2 10^3/ul (0.0-0.5); EOSINOPHILS % 1.2 % (0.0-7.0); HEMATOCRIT 24.9 % (42.0-52.0); HEMOGLOBIN 7.6 g/dl (14.0-18.0); LYMPHOCYTES # 1.6 10^3/ul (0.8-2.9); LYMPHOCYTES % 12.3 % (15.0-51.0); MEAN CORPUSCULAR HEMOGLOBIN 27.2 pg (29.0-33.0); MEAN CORPUSCULAR HGB CONC 30.5 g/dl (32.0-37.0); MEAN CORPUSCULAR VOLUME 89.2 fl (82.0-101.0); MEAN PLATELET VOLUME 11.1 fl (7.4-10.4); MONOCYTE # 1.7 10^3/ul (0.3-0.9); MONOCYTES % 13.1 % (0.0-11.0); NEUTROPHIL # 9.1 10^3/ul (1.6-7.5); NEUTROPHILS % 70.2 % (39.0-77.0); PLATELET COUNT 335 10^3/UL (140-415); POSITIVE DIFF @See below; RED BLOOD COUNT 2.79 10^6/ul (4.70-6.10); RED CELL DISTRIBUTION WIDTH 15.9 % (11.5-14.5)
[2019-02-03 06:52] LABS: IRON 13 ug/dl (35-150)
[2019-02-03 06:53] LABS: MAGNESIUM 1.8 mg/dl (1.7-2.5)
[2019-02-03 06:53] LABS: PHOSPHORUS 3.2 mg/dl (2.5-4.9)
[2019-02-03 06:57] LABS: ALANINE AMINOTRANSFERASE 18 IU/L (13-69); ALBUMIN 2.6 g/dl (3.3-4.9); ALBUMIN/GLOBULIN RATIO 0.72; ALKALINE PHOSPHATASE 91 IU/L (42-121); ANION GAP 7 (5-13); ASPARTATE AMINO TRANSFERASE 33 IU/L (15-46); BILIRUBIN,INDIRECT 0.3 mg/dl (0-1.1); BILIRUBIN,TOTAL 0.3 mg/dl (0.2-1.3); BLOOD UREA NITROGEN 42 mg/dl (7-20); CALCIUM 10.1 mg/dl (8.4-10.2); CARBON DIOXIDE 28 mmol/L (21-31); CHLORIDE 108 mmol/L (97-110); CREATININE 1.56 mg/dl (0.61-1.24); GLUCOSE 85 mg/dl (70-220); POTASSIUM 3.6 mmol/L (3.5-5.1); SODIUM 143 mmol/L (135-144); TOTAL PROTEIN 6.2 g/dl (6.1-8.1)
[2019-02-03 07:02] LABS: % IRON SATURATION 10 % SAT (22-52); TOTAL IRON BINDING CAPACITY 136 ug/dl (241-421)
[2019-02-03 08:21] LABS: HIV 1&2 ANTIBODY NEGATIVE (NEGATIVE)
[2019-02-03 08:30] LABS: HEPATITIS C VIRAL ANTIBODY NEGATIVE (NEGATIVE)
[2019-02-03] MEDS: POLYETHYLENE GLYCOL 17 GM PACKET GTB (09:00)
[2019-02-03] MEDS: COLISTIMETHATE 150 MG in SOD CHLORIDE 0.9% 100 ML IVPB (09:12)
[2019-02-03] MEDS: LINEZOLID 600 MG/300 ML (PMX) 300 ML IVPB ×2 (09:12→20:52)
[2019-02-03] MEDS: CHLORHEXIDINE GLUCONATE 15 ML UD CUP MT ×3 (09:12→20:51)
[2019-02-03] MEDS: SOD FERRIC GLUC COMPLX 125 MG in SOD CHLORIDE 0.9% 100 ML IVPB (12:53)
[2019-02-03 13:08] LABS: HEPATITIS B SURFACE ANTIGEN NEGATIVE (NEGATIVE)
[2019-02-03] MEDS: COLLAGENASE 5 GM (UD JAR) TOP (14:02)
[2019-02-03] MEDS: DAKINS 0.0125%(1/40) 473 ML SOLUTION TP (14:03)
[2019-02-04] MEDS: INSULIN ASPART [NOVOLOG] 3 ML PEN SC ×6 (01:00→20:19)
[2019-02-04] MEDS: METOCLOPRAMIDE 10 MG INJ IV ×5 (01:07→23:45)
[2019-02-04] MEDS: DEXTROSE 5%-0.45% NACL 1,000 ML IV ×3 (01:37→21:53)
[2019-02-04] MEDS: ACETYLCYSTEINE 20% 4 ML VIAL NEB ×6 (01:57→20:44)
[2019-02-04] MEDS: ALBUTEROL 0.083% (NEB) 2.5 MG/3 ML AMP HHN ×6 (01:57→20:44)
[2019-02-04] MEDS: HEPARIN 5,000 UNIT/1 ML VIAL SC ×2 (05:57→17:47)
[2019-02-04] MEDS: CHLORHEXIDINE GLUCONATE 15 ML UD CUP MT ×3 (09:26→20:19)
[2019-02-04] MEDS: POLYETHYLENE GLYCOL 17 GM PACKET GTB (09:26)
[2019-02-04] MEDS: COLLAGENASE 5 GM (UD JAR) TOP (09:26)
[2019-02-04] MEDS: COLISTIMETHATE 150 MG in SOD CHLORIDE 0.9% 100 ML IVPB (09:27)
[2019-02-04] MEDS: DAKINS 0.0125%(1/40) 473 ML SOLUTION TP (09:29)
[2019-02-04] MEDS: LINEZOLID 600 MG/300 ML (PMX) 300 ML IVPB ×2 (10:15→20:19)
[2019-02-04 12:34] LABS: FREE T4 (FREE THYROXINE) 2.33 ng/dl (0.78-2.44)
[2019-02-04] MEDS: ACETAMINOPHEN 650MG/20.3ML CUP GTB (13:05)
[2019-02-04] MEDS: SOD FERRIC GLUC COMPLX 125 MG in SOD CHLORIDE 0.9% 100 ML IVPB (13:17)
[2019-02-04] MEDS: metroNIDAZOLE 250 MG TAB GTB (23:45)
[2019-02-05] MEDS: INSULIN ASPART [NOVOLOG] 3 ML PEN SC ×6 (01:00→21:00)
[2019-02-05] MEDS: ACETYLCYSTEINE 20% 4 ML VIAL NEB ×5 (01:42→20:37)
[2019-02-05] MEDS: ALBUTEROL 0.083% (NEB) 2.5 MG/3 ML AMP HHN ×6 (01:42→20:37)
[2019-02-05] MEDS: metroNIDAZOLE 250 MG TAB GTB ×3 (05:16→21:06)
[2019-02-05] MEDS: METOCLOPRAMIDE 10 MG INJ IV ×3 (05:16→17:52)
[2019-02-05] MEDS: HEPARIN 5,000 UNIT/1 ML VIAL SC ×2 (05:33→17:09)
[2019-02-05] MEDS: POLYETHYLENE GLYCOL 17 GM PACKET GTB (07:59)
[2019-02-05 08:20] LABS: AADO2 Arterial 354.6 mmHg (7.0-24.0); Arterial Base Excess 2.6 mmol/L (-3.0-3); Arterial Blood Gas Oxygen Sat 99.4 mmHG (95.0-100.0); Arterial COHb 0.3 % (0.0-3.0); Arterial Fraction of Oxyhgb 98.4 % (93.0-99.0); Arterial MetHb 0.7 % (0.0-1.5); Arterial pCO2 47.5 mmhg (35-45); MODE MASK - NRB; Site Right Brachial
[2019-02-05] MEDS: CHLORHEXIDINE GLUCONATE 15 ML UD CUP MT ×3 (08:54→21:07)
[2019-02-05] MEDS: COLLAGENASE 5 GM (UD JAR) TOP (08:54)
[2019-02-05] MEDS: COLISTIMETHATE 150 MG in SOD CHLORIDE 0.9% 100 ML IVPB (08:55)
[2019-02-05] MEDS: LINEZOLID 600 MG/300 ML (PMX) 300 ML IVPB ×2 (08:55→21:07)
[2019-02-05] MEDS: DAKINS 0.0125%(1/40) 473 ML SOLUTION TP (08:56)
[2019-02-05] MEDS: DEXTROSE 5%-0.45% NACL 1,000 ML IV (08:56)
[2019-02-05 11:51] LABS: ADD MAN DIFF? NO
[2019-02-05 11:53] LABS: ABNORMAL IP MESSAGE 1; BASOPHILS % 0.4 % (0.0-2.0); EOSINOPHILS # 0.1 10^3/ul (0.0-0.5); EOSINOPHILS % 1.3 % (0.0-7.0); HEMATOCRIT 20.9 % (42.0-52.0); LYMPHOCYTES # 1.2 10^3/ul (0.8-2.9); MEAN CORPUSCULAR HEMOGLOBIN 27.2 pg (29.0-33.0); MEAN CORPUSCULAR HGB CONC 31.1 g/dl (32.0-37.0); MEAN CORPUSCULAR VOLUME 87.4 fl (82.0-101.0); MEAN PLATELET VOLUME 10.9 fl (7.4-10.4); MONOCYTE # 1.2 10^3/ul (0.3-0.9); MONOCYTES % 12.2 % (0.0-11.0); NEUTROPHIL # 6.8 10^3/ul (1.6-7.5); NEUTROPHILS % 69.4 % (39.0-77.0); PLATELET COUNT 301 10^3/UL (140-415); POSITIVE DIFF @See below; RED BLOOD COUNT 2.39 10^6/ul (4.70-6.10); RED CELL DISTRIBUTION WIDTH 15.9 % (11.5-14.5)
[2019-02-05 11:53] LABS: WHITE BLOOD COUNT 9.8 10^3/ul (4.8-10.8)
[2019-02-05 11:58] LABS: HEMOGLOBIN 6.5 g/dl (14.0-18.0)
[2019-02-05] MEDS: SOD FERRIC GLUC COMPLX 125 MG in SOD CHLORIDE 0.9% 100 ML IVPB (12:07)
[2019-02-05 12:32] LABS: ANION GAP 3 (5-13); BLOOD UREA NITROGEN 44 mg/dl (7-20); CALCIUM 9.7 mg/dl (8.4-10.2); CARBON DIOXIDE 28 mmol/L (21-31); CHLORIDE 105 mmol/L (97-110); CREATININE 1.81 mg/dl (0.61-1.24); GLUCOSE 154 mg/dl (70-220); MAGNESIUM 1.6 mg/dl (1.7-2.5); PHOSPHORUS 4.5 mg/dl (2.5-4.9); POTASSIUM 3.1 mmol/L (3.5-5.1); SODIUM 136 mmol/L (135-144)
[2019-02-05] MEDS: POTASSIUM CHLORIDE 20 MEQ POWDER FOR ORAL SOLN GTB (14:38)
[2019-02-05] MEDS: FLUCONAZOLE 200 MG (PMX) 100 ML IVPB (15:37)
[2019-02-06] MEDS: INSULIN ASPART [NOVOLOG] 3 ML PEN SC ×6 (01:00→21:00)
[2019-02-06] MEDS: METOCLOPRAMIDE 10 MG INJ IV ×4 (01:18→17:48)
[2019-02-06] MEDS: ALBUTEROL 0.083% (NEB) 2.5 MG/3 ML AMP HHN ×6 (01:42→20:21)
[2019-02-06] MEDS: ACETYLCYSTEINE 20% 4 ML VIAL NEB ×6 (01:42→20:21)
[2019-02-06] MEDS: metroNIDAZOLE 250 MG TAB GTB ×3 (04:47→21:28)
[2019-02-06] MEDS: HEPARIN 5,000 UNIT/1 ML VIAL SC ×2 (05:08→16:30)
[2019-02-06 06:52] LABS: ADD MAN DIFF? NO
[2019-02-06 06:59] LABS: WHITE BLOOD COUNT 11.6 10^3/ul (4.8-10.8)
[2019-02-06 07:00] LABS: BASOPHIL # 0.1 10^3/ul (0.0-0.1); BASOPHILS % 0.6 % (0.0-2.0); EOSINOPHILS # 0.2 10^3/ul (0.0-0.5); EOSINOPHILS % 1.7 % (0.0-7.0); HEMATOCRIT 22.8 % (42.0-52.0); HEMOGLOBIN 7.1 g/dl (14.0-18.0); LYMPHOCYTES % 17.3 % (15.0-51.0); MEAN CORPUSCULAR HEMOGLOBIN 27.8 pg (29.0-33.0); MEAN CORPUSCULAR HGB CONC 31.1 g/dl (32.0-37.0); MEAN CORPUSCULAR VOLUME 89.4 fl (82.0-101.0); MEAN PLATELET VOLUME 10.8 fl (7.4-10.4); MONOCYTE # 1.3 10^3/ul (0.3-0.9); MONOCYTES % 11.6 % (0.0-11.0); NEUTROPHIL # 7.4 10^3/ul (1.6-7.5); NEUTROPHILS % 64.1 % (39.0-77.0); PLATELET COUNT 341 10^3/UL (140-415); RED BLOOD COUNT 2.55 10^6/ul (4.70-6.10); RED CELL DISTRIBUTION WIDTH 15.8 % (11.5-14.5)
[2019-02-06 07:20] LABS: ANION GAP 4 (5-13); BLOOD UREA NITROGEN 41 mg/dl (7-20); CALCIUM 10.2 mg/dl (8.4-10.2); CARBON DIOXIDE 28 mmol/L (21-31); CHLORIDE 106 mmol/L (97-110); GLUCOSE 116 mg/dl (70-220); MAGNESIUM 1.6 mg/dl (1.7-2.5); PHOSPHORUS 4.5 mg/dl (2.5-4.9); POTASSIUM 3.2 mmol/L (3.5-5.1); SODIUM 138 mmol/L (135-144)
[2019-02-06] MEDS: POLYETHYLENE GLYCOL 17 GM PACKET GTB (08:59)
[2019-02-06] MEDS: LINEZOLID 600 MG/300 ML (PMX) 300 ML IVPB ×2 (08:59→21:28)
[2019-02-06] MEDS: CHLORHEXIDINE GLUCONATE 15 ML UD CUP MT ×3 (08:59→21:28)
[2019-02-06] MEDS: DAKINS 0.0125%(1/40) 473 ML SOLUTION TP (09:00)
[2019-02-06] MEDS: COLLAGENASE 5 GM (UD JAR) TOP (09:00)
[2019-02-06] MEDS: FLUCONAZOLE 100 MG TAB PO (09:00)
[2019-02-06] MEDS: ACETAMINOPHEN 325 MG TAB GTB (11:31)
[2019-02-06] MEDS: SOD FERRIC GLUC COMPLX 125 MG in SOD CHLORIDE 0.9% 100 ML IVPB (12:18)
[2019-02-06] MEDS: ERTAPENEM SODIUM 1 GM in SOD CHLORIDE 0.9% 100 ML IVPB (15:21)
[2019-02-06] MEDS: POTASSIUM CHLORIDE 20 MEQ POWDER FOR ORAL SOLN GTB (16:30)
[2019-02-07] MEDS: INSULIN ASPART [NOVOLOG] 3 ML PEN SC ×6 (00:10→21:16)
[2019-02-07] MEDS: METOCLOPRAMIDE 10 MG INJ IV ×4 (00:10→18:03)
[2019-02-07] MEDS: ALBUTEROL 0.083% (NEB) 2.5 MG/3 ML AMP HHN ×6 (00:32→20:52)
[2019-02-07] MEDS: ACETYLCYSTEINE 20% 4 ML VIAL NEB ×3 (00:32→08:53)
[2019-02-07] MEDS: metroNIDAZOLE 250 MG TAB GTB ×2 (05:34→14:29)
[2019-02-07] MEDS: HEPARIN 5,000 UNIT/1 ML VIAL SC ×2 (05:53→17:00)
[2019-02-07 06:25] LABS: ADD MAN DIFF? NO
[2019-02-07 06:26] LABS: WHITE BLOOD COUNT 10.4 10^3/ul (4.8-10.8)
[2019-02-07 06:26] LABS: ABNORMAL IP MESSAGE 1; BASOPHIL # 0.1 10^3/ul (0.0-0.1); BASOPHILS % 0.5 % (0.0-2.0); EOSINOPHILS # 0.2 10^3/ul (0.0-0.5); EOSINOPHILS % 1.9 % (0.0-7.0); HEMATOCRIT 22.6 % (42.0-52.0); HEMOGLOBIN 7.1 g/dl (14.0-18.0); LYMPHOCYTES # 1.2 10^3/ul (0.8-2.9); LYMPHOCYTES % 11.8 % (15.0-51.0); MEAN CORPUSCULAR HEMOGLOBIN 27.8 pg (29.0-33.0); MEAN CORPUSCULAR HGB CONC 31.4 g/dl (32.0-37.0); MEAN CORPUSCULAR VOLUME 88.6 fl (82.0-101.0); MEAN PLATELET VOLUME 10.3 fl (7.4-10.4); MONOCYTE # 1.1 10^3/ul (0.3-0.9); NEUTROPHIL # 7.2 10^3/ul (1.6-7.5); NEUTROPHILS % 69.6 % (39.0-77.0); PLATELET COUNT 346 10^3/UL (140-415); POSITIVE DIFF @See below; RED BLOOD COUNT 2.55 10^6/ul (4.70-6.10); RED CELL DISTRIBUTION WIDTH 16.1 % (11.5-14.5)
[2019-02-07 06:55] LABS: ANION GAP 4 (5-13); BLOOD UREA NITROGEN 40 mg/dl (7-20); CALCIUM 9.9 mg/dl (8.4-10.2); CARBON DIOXIDE 31 mmol/L (21-31); CHLORIDE 105 mmol/L (97-110); CREATININE 1.71 mg/dl (0.61-1.24); GLUCOSE 119 mg/dl (70-220); MAGNESIUM 1.5 mg/dl (1.7-2.5); PHOSPHORUS 4.4 mg/dl (2.5-4.9); POTASSIUM 3.4 mmol/L (3.5-5.1); SODIUM 140 mmol/L (135-144)
[2019-02-07 08:58] LABS: ANISOCYTOSIS 1+ (0-0); BAND NEUTROPHILS #M 0.6 10^3/ul (0.0-0.6); BAND NEUTROPHILS % (M) 6 % (0-4); EOSINOPHILS % (M) 2 % (0-7); GIANT THROMBO% (M) 2 % (0-0); LYMPHOCYTES #M 0.9 10^3/ul (0.8-2.9); LYMPHOCYTES % (M) 9 % (15-51); METAMYELOCYTES #M 0.1 10^3/ul (0.0-0.0); METAMYELOCYTES %M 1 % (0-0); MICROCYTOSIS 1+ (0-0); MONOCYTE #M 0.9 10^3/ul (0.3-0.9); MONOCYTES % (M) 9 % (0-11); MYELOCYTES #M 0.1 10^3/ul (0.0-0.0); MYELOCYTES % (M) 1 % (0-0); PLATELET ESTIMATE NORMAL; POLYCHROMASIA 1+ (0-0); REACTIVE LYMPHOCYTES #M 0.1 10^3/ul (0.0-0.0); REACTIVE LYMPHOCYTES% (M) 1 % (0-0); SEG NEUT #M 7.4 10^3/ul (1.6-7.5); SEGMENTED NEUTROPHILS (M) % 71 % (39-77); SMUDGE%M 41 % (0-0)
[2019-02-07] MEDS: DAKINS 0.0125%(1/40) 473 ML SOLUTION TP (09:37)
[2019-02-07] MEDS: FLUCONAZOLE 100 MG TAB PO (09:46)
[2019-02-07] MEDS: CHLORHEXIDINE GLUCONATE 15 ML UD CUP MT ×3 (09:46→22:20)
[2019-02-07] MEDS: POTASSIUM CHLORIDE 20 MEQ POWDER FOR ORAL SOLN GTB (09:46)
[2019-02-07] MEDS: COLLAGENASE 5 GM (UD JAR) TOP (09:46)
[2019-02-07] MEDS: LINEZOLID 600 MG/300 ML (PMX) 300 ML IVPB ×2 (09:46→22:20)
[2019-02-07] MEDS: POLYETHYLENE GLYCOL 17 GM PACKET GTB (09:47)
[2019-02-07] MEDS: MAGNESIUM SULFATE 2 GM/50 ML 50 ML IVPB (11:40)
[2019-02-07] MEDS: FUROSEMIDE 20 MG INJ IV (13:16)
[2019-02-07] MEDS: ERTAPENEM SODIUM 1 GM in SOD CHLORIDE 0.9% 100 ML IVPB (14:29)
[2019-02-07] MEDS: SOD FERRIC GLUC COMPLX 125 MG in SOD CHLORIDE 0.9% 100 ML IVPB (15:06)
[2019-02-07] MEDS: FUROSEMIDE 20 MG TAB NGT (18:03)
[2019-02-07] MEDS: MEROPENEM 500MG/50 ML (PMX) 50 ML IVPB (22:20)
[2019-02-08] MEDS: METOCLOPRAMIDE 10 MG INJ IV ×3 (00:32→12:36)
[2019-02-08] MEDS: INSULIN ASPART [NOVOLOG] 3 ML PEN SC ×6 (00:39→20:43)
[2019-02-08] MEDS: ALBUTEROL 0.083% (NEB) 2.5 MG/3 ML AMP HHN ×6 (01:30→20:26)
[2019-02-08] MEDS: FUROSEMIDE 20 MG TAB NGT ×2 (06:15→18:00)
[2019-02-08 06:47] LABS: ADD MAN DIFF? NO
[2019-02-08] MEDS: HEPARIN 5,000 UNIT/1 ML VIAL SC ×2 (06:49→18:19)
[2019-02-08 06:54] LABS: WHITE BLOOD COUNT 16.7 10^3/ul (4.8-10.8)
[2019-02-08 06:54] LABS: BASOPHIL # 0.1 10^3/ul (0.0-0.1); BASOPHILS % 0.4 % (0.0-2.0); EOSINOPHILS # 0.1 10^3/ul (0.0-0.5); EOSINOPHILS % 0.8 % (0.0-7.0); HEMOGLOBIN 7.5 g/dl (14.0-18.0); LYMPHOCYTES # 1.5 10^3/ul (0.8-2.9); LYMPHOCYTES % 8.7 % (15.0-51.0); MEAN CORPUSCULAR HGB CONC 31.3 g/dl (32.0-37.0); MEAN CORPUSCULAR VOLUME 89.6 fl (82.0-101.0); MEAN PLATELET VOLUME 10.7 fl (7.4-10.4); MONOCYTE # 1.2 10^3/ul (0.3-0.9); MONOCYTES % 7.2 % (0.0-11.0); NEUTROPHIL # 13.5 10^3/ul (1.6-7.5); NEUTROPHILS % 80.7 % (39.0-77.0); PLATELET COUNT 341 10^3/UL (140-415); RED BLOOD COUNT 2.68 10^6/ul (4.70-6.10); RED CELL DISTRIBUTION WIDTH 16.3 % (11.5-14.5)
[2019-02-08 07:18] LABS: ANION GAP 4 (5-13); BLOOD UREA NITROGEN 36 mg/dl (7-20); CALCIUM 10.1 mg/dl (8.4-10.2); CARBON DIOXIDE 33 mmol/L (21-31); CHLORIDE 105 mmol/L (97-110); CREATININE 1.52 mg/dl (0.61-1.24); GLUCOSE 136 mg/dl (70-220); MAGNESIUM 1.7 mg/dl (1.7-2.5); POTASSIUM 3.4 mmol/L (3.5-5.1); SODIUM 142 mmol/L (135-144)
[2019-02-08] MEDS: FLUCONAZOLE 100 MG TAB PO (08:55)
[2019-02-08] MEDS: ASCORBIC ACID 250 MG TAB GTB (08:55)
[2019-02-08] MEDS: CHLORHEXIDINE GLUCONATE 15 ML UD CUP MT ×3 (08:55→20:33)
[2019-02-08] MEDS: ZINC SULFATE 220 MG CAP GTB (08:55)
[2019-02-08] MEDS: POLYETHYLENE GLYCOL 17 GM PACKET GTB (08:55)
[2019-02-08] MEDS: FOLIC ACID 1 MG TAB GTB (08:55)
[2019-02-08] MEDS: COLLAGENASE 5 GM (UD JAR) TOP ×2 (08:59)
[2019-02-08] MEDS: DAKINS 0.0125%(1/40) 473 ML SOLUTION TP (08:59)
[2019-02-08] MEDS: POTASSIUM CHLORIDE 20 MEQ POWDER FOR ORAL SOLN GTB (08:59)
[2019-02-08] MEDS: MEROPENEM 500MG/50 ML (PMX) 50 ML IVPB ×2 (08:59→20:33)
[2019-02-08] MEDS: LINEZOLID 600 MG/300 ML (PMX) 300 ML IVPB ×2 (09:36→20:41)
[2019-02-09] MEDS: ALBUTEROL 0.083% (NEB) 2.5 MG/3 ML AMP HHN ×6 (00:51→20:49)
[2019-02-09] MEDS: INSULIN ASPART [NOVOLOG] 3 ML PEN SC ×6 (01:51→21:12)
[2019-02-09] MEDS: FUROSEMIDE 20 MG TAB NGT ×2 (05:38→17:22)
[2019-02-09] MEDS: HEPARIN 5,000 UNIT/1 ML VIAL SC ×2 (05:44→17:28)
[2019-02-09 07:58] LABS: ADD MAN DIFF? NO
[2019-02-09 08:23] LABS: ANION GAP 3 (5-13); BLOOD UREA NITROGEN 35 mg/dl (7-20); CALCIUM 9.8 mg/dl (8.4-10.2); CARBON DIOXIDE 34 mmol/L (21-31); CHLORIDE 106 mmol/L (97-110); CREATININE 1.43 mg/dl (0.61-1.24); GLUCOSE 131 mg/dl (70-220); MAGNESIUM 1.5 mg/dl (1.7-2.5); PHOSPHORUS 3.7 mg/dl (2.5-4.9); POTASSIUM 3.4 mmol/L (3.5-5.1); SODIUM 143 mmol/L (135-144)
[2019-02-09] MEDS: DAKINS 0.0125%(1/40) 473 ML SOLUTION TP (09:00)
[2019-02-09] MEDS: COLLAGENASE 5 GM (UD JAR) TOP ×2 (09:00)
[2019-02-09 09:20] LABS: WHITE BLOOD COUNT 10.5 10^3/ul (4.8-10.8)
[2019-02-09 09:20] LABS: ABNORMAL IP MESSAGE 1; BASOPHILS % 0.3 % (0.0-2.0); EOSINOPHILS # 0.1 10^3/ul (0.0-0.5); HEMATOCRIT 22.1 % (42.0-52.0); LYMPHOCYTES # 1.3 10^3/ul (0.8-2.9); LYMPHOCYTES % 12.4 % (15.0-51.0); MEAN CORPUSCULAR HEMOGLOBIN 27.3 pg (29.0-33.0); MEAN CORPUSCULAR HGB CONC 30.3 g/dl (32.0-37.0); MEAN CORPUSCULAR VOLUME 90.2 fl (82.0-101.0); MEAN PLATELET VOLUME 9.9 fl (7.4-10.4); MONOCYTE # 0.9 10^3/ul (0.3-0.9); MONOCYTES % 8.1 % (0.0-11.0); NEUTROPHIL # 8.1 10^3/ul (1.6-7.5); NEUTROPHILS % 76.8 % (39.0-77.0); PLATELET COUNT 289 10^3/UL (140-415); POSITIVE DIFF @See below; RED BLOOD COUNT 2.45 10^6/ul (4.70-6.10); RED CELL DISTRIBUTION WIDTH 16.3 % (11.5-14.5)
[2019-02-09 09:31] LABS: HEMOGLOBIN 6.7 g/dl (14.0-18.0); PATH REVIEW? YES
[2019-02-09] MEDS: ACETAMINOPHEN 650MG/20.3ML CUP GTB (09:55)
[2019-02-09] MEDS: MEROPENEM 500MG/50 ML (PMX) 50 ML IVPB ×2 (09:55→21:02)
[2019-02-09] MEDS: CHLORHEXIDINE GLUCONATE 15 ML UD CUP MT ×3 (09:55→21:03)
[2019-02-09] MEDS: POLYETHYLENE GLYCOL 17 GM PACKET GTB (09:55)
[2019-02-09] MEDS: ZINC SULFATE 220 MG CAP GTB (09:56)
[2019-02-09] MEDS: FLUCONAZOLE 100 MG TAB PO (09:56)
[2019-02-09] MEDS: FOLIC ACID 1 MG TAB GTB (09:56)
[2019-02-09] MEDS: ONDANSETRON 4 MG INJ IV (09:56)
[2019-02-09] MEDS: ASCORBIC ACID 250 MG TAB GTB (09:56)
[2019-02-09 11:07] LABS: ANISOCYTOSIS 1+ (0-0); BAND NEUTROPHILS #M 0.2 10^3/ul (0.0-0.6); BAND NEUTROPHILS % (M) 2 % (0-4); BURR CELLS 1+ (0-0); EOSINOPHILS % (M) 2 % (0-7); LYMPHOCYTES #M 1.1 10^3/ul (0.8-2.9); LYMPHOCYTES % (M) 11 % (15-51); MICROCYTOSIS 1+ (0-0); MONOCYTE #M 0.7 10^3/ul (0.3-0.9); MONOCYTES % (M) 7 % (0-11); MYELOCYTES #M 0.3 10^3/ul (0.0-0.0); MYELOCYTES % (M) 3 % (0-0); PLATELET ESTIMATE NORMAL; POIKILOCYTOSIS 1+ (0-0); POLYCHROMASIA 3+ (0-0); SEG NEUT #M 7.9 10^3/ul (1.6-7.5); SEGMENTED NEUTROPHILS (M) % 75 % (39-77); SMUDGE%M 8 % (0-0)
[2019-02-09 15:46] LABS: IMMEDIATE SPIN CROSSMATCH 1 1
== END 2019-02-09 23:08 | DRG 853 ==
LOC: TEL 02-02 10:41 → E/R 00:13 → ICU 01:35 → TEL 14:10
PROC: 0KBP0ZZ Excision of Left Hip Muscle, Open Approach (ICD-10-PCS; principal; 2019-02-07)
PROC: 30233N1 Transfusion of Nonautologous Red Blood Cells into Peripheral Vein, Percutaneous Approach (ICD-10-PCS; 2019-02-09)
DX: A41.9 Sepsis, unspecified organism (principal); L89.324 Pressure ulcer of left buttock, stage 4; L89.153 Pressure ulcer of sacral region, stage 3; L89.523 Pressure ulcer of left ankle, stage 3; L89.893 Pressure ulcer of other site, stage 3; R65.21 Severe sepsis with septic shock; G92 Toxic encephalopathy; R53.2 Functional quadriplegia; J96.21 Acute and chronic respiratory failure with hypoxia; J18.9 Pneumonia, unspecified organism; N39.0 Urinary tract infection, site not specified; N17.9 Acute kidney failure, unspecified; E11.52 Type 2 diabetes mellitus with diabetic peripheral angiopathy with gangrene; I96 Gangrene, not elsewhere classified; E87.0 Hyperosmolality and hypernatremia; E87.3 Alkalosis; E87.1 Hypo-osmolality and hyponatremia; I13.0 Hypertensive heart and chronic kidney disease with heart failure and stage 1 through stage 4 chronic kidney disease, or unspecified chronic kidney disease; L97.329 Non-pressure chronic ulcer of left ankle with unspecified severity; E11.22 Type 2 diabetes mellitus with diabetic chronic kidney disease; I12.9 Hypertensive chronic kidney disease with stage 1 through stage 4 chronic kidney disease, or unspecified chronic kidney disease; N18.9 Chronic kidney disease, unspecified; F02.80 Dementia in other diseases classified elsewhere, unspecified severity, without behavioral disturbance, psychotic disturbance, mood disturbance, and anxiety; E86.0 Dehydration; D50.9 Iron deficiency anemia, unspecified; G30.9 Alzheimer's disease, unspecified; R13.10 Dysphagia, unspecified; L98.499 Non-pressure chronic ulcer of skin of other sites with unspecified severity; E11.40 Type 2 diabetes mellitus with diabetic neuropathy, unspecified; E11.621 Type 2 diabetes mellitus with foot ulcer; L97.529 Non-pressure chronic ulcer of other part of left foot with unspecified severity; R65.20 Severe sepsis without septic shock; E87.6 Hypokalemia; E83.42 Hypomagnesemia; E11.649 Type 2 diabetes mellitus with hypoglycemia without coma; I50.9 Heart failure, unspecified; M24.562 Contracture, left knee; M24.561 Contracture, right knee; M24.552 Contracture, left hip; M24.551 Contracture, right hip; C61 Malignant neoplasm of prostate; Z74.01 Bed confinement status; Z86.73 Personal history of transient ischemic attack (TIA), and cerebral infarction without residual deficits
CPT/HCPCS: 36415; 36430; 36600; 71045; 71250; 73610; 73630-LT; 80048; 80053; 81001; 81003; 82043; 82803; 82962; 83540; 83605; 83735; 84100; 84155; 84300; 84439; 84443; 84484; 85025; 85610; 85730; 86703; 86803; 86850; 86900; 86901; 86920; 87040-91; 87070; 87086; 87340; 89220; 93005; 93970; 94640; 94664; 99285-25

== ENCOUNTER 2019-05-06 11:21 | Inpatient (IN) | payer MEDICARE, OTHER ==
[2019-05-06 11:56] LABS: ADD MAN DIFF? NO
[2019-05-06] MEDS: CEFTRIAXONE 1 GM/50 ML (PMX) 50 ML IVPB (12:05)
[2019-05-06 12:16] LABS: ALANINE AMINOTRANSFERASE 15 IU/L (13-69); ALBUMIN 3.1 g/dl (3.3-4.9); ALBUMIN/GLOBULIN RATIO 0.72; ALKALINE PHOSPHATASE 150 IU/L (42-121); ANION GAP 3 (5-13); ASPARTATE AMINO TRANSFERASE 27 IU/L (15-46); BILIRUBIN,INDIRECT 0.5 mg/dl (0-1.1); BILIRUBIN,TOTAL 0.5 mg/dl (0.2-1.3); BLOOD UREA NITROGEN 108 mg/dl (7-20); CALCIUM 9.5 mg/dl (8.4-10.2); CARBON DIOXIDE 33 mmol/L (21-31); CHLORIDE 126 mmol/L (97-110); CREATININE 2.48 mg/dl (0.61-1.24); GLUCOSE 268 mg/dl (70-220); POTASSIUM 4.8 mmol/L (3.5-5.1); TOTAL PROTEIN 7.4 g/dl (6.1-8.1)
[2019-05-06 12:24] LABS: ADD UMIC YES; SODIUM 162 mmol/L (135-144); UR ASCORBIC ACID 40 mg/dL (NEGATIVE); UR BACTERIA FEW /HPF (NONE SEEN); UR BILIRUBIN (Dip) NEGATIVE (NEGATIVE); UR BLOOD (Dip) NEGATIVE (NEGATIVE); UR CLARITY TURBID (CLEAR); UR COLOR AMBER (YELLOW); UR GLUCOSE (Dip) NEGATIVE (NEGATIVE); UR KETONES (Dip) NEGATIVE (NEGATIVE); UR LEUKOCYTE ESTERASE (Dip) 3+ Leu/ul (NEGATIVE); UR MUCUS FEW /HPF (NONE SEEN); UR NITRITE (Dip) NEGATIVE (NEGATIVE); UR NONSQUAMOUS EPITHELIAL CELL 1 /HPF (NONE SEEN); UR RBC 30 /HPF (0-5); UR SPECIFIC GRAVITY (Dip) 1.016 (1.003-1.030); UR TOTAL PROTEIN (Dip) 2+ mg/dl (NEGATIVE); UR UROBILINOGEN (Dip) NEGATIVE (NEGATIVE); UR WBC > 182 /HPF (0-5)
[2019-05-06 12:27] LABS: TROPONIN-I 0.086 ng/ml (0.000-0.120)
[2019-05-06] MEDS: AZITHROMYCIN 500MG/NS (PMX) 250 ML IV (12:50)
[2019-05-06 13:03] LABS: ABNORMAL IP MESSAGE 1; BASOPHILS % 0.2 % (0.0-2.0); HEMATOCRIT 27.8 % (42.0-52.0); HEMOGLOBIN 7.8 g/dl (14.0-18.0); LYMPHOCYTES # 1.8 10^3/ul (0.8-2.9); LYMPHOCYTES % 9.9 % (15.0-51.0); MEAN CORPUSCULAR HEMOGLOBIN 27.4 pg (29.0-33.0); MEAN CORPUSCULAR HGB CONC 28.1 g/dl (32.0-37.0); MEAN CORPUSCULAR VOLUME 97.5 fl (82.0-101.0); MONOCYTE # 0.7 10^3/ul (0.3-0.9); NEUTROPHIL # 15.9 10^3/ul (1.6-7.5); NEUTROPHILS % 85.2 % (39.0-77.0); NUCLEATED RED BLOOD CELLS% 0.1 /100WBC (0.0-0.0); PLATELET COUNT 202 10^3/UL (140-415); RED BLOOD COUNT 2.85 10^6/ul (4.70-6.10); RED CELL DISTRIBUTION WIDTH 15.5 % (11.5-14.5)
[2019-05-06 13:03] LABS: WHITE BLOOD COUNT 18.7 10^3/ul (4.8-10.8)
[2019-05-06 13:04] LABS: MEAN PLATELET VOLUME 13.4 fl (7.4-10.4)
[2019-05-06] MEDS: SODIUM CHLORIDE 0.9% 1L BAG IV* (13:12)
[2019-05-06] MEDS: IPRATROPIUM (NEB) 0.5 MG/2.5 ML AMP INH (13:18)
[2019-05-06] MEDS: ALBUTEROL 0.083% (NEB) 2.5 MG/3 ML AMP INH (13:18)
[2019-05-06 13:26] LABS: LACTIC ACID 3.3 mmol/L (0.5-2.0)
[2019-05-06] MEDS ORDERED: ACETAMINOPHEN 325 MG TAB PO (13:30)
[2019-05-06] MEDS ORDERED: ONDANSETRON 4 MG INJ IV ×2 (13:30→15:00)
[2019-05-06 13:35] LABS: PARTIAL THROMBOPLASTIN TIME 34.2 Sec (23.0-35.0)
[2019-05-06 13:37] LABS: PROTIME 17.2 Sec (11.9-14.9); PT RATIO 1.3
[2019-05-06 13:38] LABS: INR 1.39
[2019-05-06] MEDS ORDERED: NACL 0.9% 3 ML SYG IV (15:00)
[2019-05-06] MEDS ORDERED: VANCOMYCIN IV PER PHARMACY XX (15:00)
[2019-05-06] MEDS: SOD CHLORIDE 0.9% 1,000 ML IV (15:14)
[2019-05-06] MEDS: VANCOMYCIN 1.25 GM IN 0.9 % SOD CHLORIDE 250 ML IVPB (15:14)
[2019-05-06 15:36] LABS: HEMOGLOBIN A1C 6.5 % (0-5.9)
[2019-05-06 17:13] LABS: AADO2 Arterial 381.6 mmHg (7.0-24.0); Arterial Blood Gas Oxygen Sat 99.2 mmHG (95.0-100.0); Arterial COHb 0.2 % (0.0-3.0); Arterial Fraction of Oxyhgb 98.4 % (93.0-99.0); Arterial HCO3 25.7 mmol/L (22.0-26.0); Arterial MetHb 0.6 % (0.0-1.5); Arterial pCO2 41.5 mmhg (35-45); MODE MASK - NRB; Site Right Brachial
[2019-05-06] MEDS: PIPER-TAZO 3.375 GM IV (PMX) 100 ML IVPB ×2 (17:16→22:07)
[2019-05-06] MEDS: LEVALBUTEROL (NEB) 0.63 MG/3 ML AMP HHN ×2 (17:54→20:13)
[2019-05-06 18:04] LABS: LACTIC ACID 2.9 mmol/L (0.5-2.0)
[2019-05-06] MEDS: INSULIN ASPART [NOVOLOG] 3 ML PEN SC ×2 (18:29→21:36)
[2019-05-06] MEDS: SENNA TAB GTB (21:11)
[2019-05-06] MEDS: FERROUS SULFATE 60 MG/ML 5ML CUP GTB (21:11)
[2019-05-06] MEDS: INSULIN GLARGINE [LANTus] (100 UNITS/ML) SYG SC (21:33)
[2019-05-06] MEDS: HEPARIN 5,000 UNIT/1 ML VIAL SC (21:35)
[2019-05-07] MEDS: INSULIN ASPART [NOVOLOG] 3 ML PEN SC ×6 (01:20→20:56)
[2019-05-07] MEDS: LEVALBUTEROL (NEB) 0.63 MG/3 ML AMP HHN ×6 (02:02→20:38)
[2019-05-07] MEDS: SOD CHLORIDE 0.9% 1,000 ML IV (03:17)
[2019-05-07] MEDS: PIPER-TAZO 3.375 GM IV (PMX) 100 ML IVPB (05:35)
[2019-05-07 06:17] LABS: ABNORMAL IP MESSAGE 1; HEMATOCRIT 23.4 % (42.0-52.0); MEAN CORPUSCULAR HEMOGLOBIN 26.6 pg (29.0-33.0); MEAN CORPUSCULAR HGB CONC 26.9 g/dl (32.0-37.0); MEAN CORPUSCULAR VOLUME 98.7 fl (82.0-101.0); MEAN PLATELET VOLUME 12.8 fl (7.4-10.4); PLATELET COUNT 156 10^3/UL (140-415); POSITIVE DIFF @See below; RED BLOOD COUNT 2.37 10^6/ul (4.70-6.10); RED CELL DISTRIBUTION WIDTH 15.6 % (11.5-14.5)
[2019-05-07 06:28] LABS: LACTIC ACID 1.1 mmol/L (0.5-2.0)
[2019-05-07 06:32] LABS: ANION GAP 3 (5-13); BLOOD UREA NITROGEN 80 mg/dl (7-20); CARBON DIOXIDE 29 mmol/L (21-31); CHLORIDE 131 mmol/L (97-110); CREATININE 1.66 mg/dl (0.61-1.24); GLUCOSE 154 mg/dl (70-220); POTASSIUM 3.8 mmol/L (3.5-5.1)
[2019-05-07 06:33] LABS: PHOSPHORUS 3.6 mg/dl (2.5-4.9)
[2019-05-07 06:33] LABS: CHOL/HDL RATIO 6.1 RATIO; CHOLESTEROL 99 mg/dl (100-200); HDL CHOLESTEROL 16 mg/dl (31-75); LDL CHOLESTEROL,CALCULATED 48 mg/dl; MAGNESIUM 2.8 mg/dl (1.7-2.5); TRIGLYCERIDES 174 mg/dl (0-149)
[2019-05-07 06:45] LABS: SODIUM 163 mmol/L (135-144)
[2019-05-07 07:00] LABS: HEMOGLOBIN 6.3 g/dl (14.0-18.0)
[2019-05-07 07:01] LABS: ADD MAN DIFF? YES
[2019-05-07] MEDS: DEXTROSE 5% 1,000 ML IV ×2 (07:49→16:52)
[2019-05-07 08:21] LABS: ADD MAN DIFF? NO
[2019-05-07 08:29] LABS: ABNORMAL IP MESSAGE 1; BASOPHILS % 0.2 % (0.0-2.0); EOSINOPHILS # 0.1 10^3/ul (0.0-0.5); HEMATOCRIT 22.8 % (42.0-52.0); LYMPHOCYTES # 0.8 10^3/ul (0.8-2.9); LYMPHOCYTES % 6.3 % (15.0-51.0); MEAN CORPUSCULAR HEMOGLOBIN 26.8 pg (29.0-33.0); MEAN CORPUSCULAR HGB CONC 27.6 g/dl (32.0-37.0); MEAN PLATELET VOLUME 13.1 fl (7.4-10.4); MONOCYTE # 0.4 10^3/ul (0.3-0.9); MONOCYTES % 2.9 % (0.0-11.0); NEUTROPHIL # 11.4 10^3/ul (1.6-7.5); NEUTROPHILS % 89.1 % (39.0-77.0); PLATELET COUNT 157 10^3/UL (140-415); POSITIVE DIFF @See below; RED BLOOD COUNT 2.35 10^6/ul (4.70-6.10); RED CELL DISTRIBUTION WIDTH 15.8 % (11.5-14.5)
[2019-05-07 08:29] LABS: WHITE BLOOD COUNT 12.8 10^3/ul (4.8-10.8)
[2019-05-07 08:36] LABS: HEMOGLOBIN 6.3 g/dl (14.0-18.0)
[2019-05-07 08:46] LABS: ANISOCYTOSIS 1+ (0-0); BAND NEUTROPHILS #M 2.3 10^3/ul (0.0-0.6); BAND NEUTROPHILS % (M) 17 % (0-4); EOSINOPHILS % (M) 2 % (0-7); LYMPHOCYTES #M 1.1 10^3/ul (0.8-2.9); LYMPHOCYTES % (M) 8 % (15-51); MONOCYTE #M 0.4 10^3/ul (0.3-0.9); MONOCYTES % (M) 3 % (0-11); PLATELET ESTIMATE NORMAL; POLYCHROMASIA 1+ (0-0); SEG NEUT #M 10.1 10^3/ul (1.6-7.5); SEGMENTED NEUTROPHILS (M) % 70 % (39-77); SMUDGE%M 17 % (0-0)
[2019-05-07 08:49] LABS: ANION GAP 2 (5-13); BLOOD UREA NITROGEN 71 mg/dl (7-20); CALCIUM 9.1 mg/dl (8.4-10.2); CARBON DIOXIDE 29 mmol/L (21-31); CHLORIDE 132 mmol/L (97-110); GLUCOSE 184 mg/dl (70-220); POTASSIUM 3.7 mmol/L (3.5-5.1)
[2019-05-07 08:58] LABS: SODIUM 163 mmol/L (135-144)
[2019-05-07] MEDS: SOD CHLORIDE 0.9% 250 ML IV* (09:14)
[2019-05-07] MEDS: FERROUS SULFATE 60 MG/ML 5ML CUP GTB ×3 (09:22→20:27)
[2019-05-07] MEDS: COLLAGENASE 5 GM (UD JAR) TOP (09:22)
[2019-05-07] MEDS: ZINC SULFATE 220 MG CAP GTB (09:22)
[2019-05-07] MEDS ORDERED: MEROPENEM 1 GM/50ML(PMX) 50 ML IVPB (11:30)
[2019-05-07] MEDS ORDERED: LINEZOLID 600 MG/300 ML (PMX) 300 ML IVPB (12:30)
[2019-05-07 12:41] LABS: ANION GAP 0 (5-13); BLOOD UREA NITROGEN 72 mg/dl (7-20); CALCIUM 9.3 mg/dl (8.4-10.2); CARBON DIOXIDE 31 mmol/L (21-31); CHLORIDE 131 mmol/L (97-110); CREATININE 1.71 mg/dl (0.61-1.24); GLUCOSE 205 mg/dl (70-220); POTASSIUM 3.6 mmol/L (3.5-5.1)
[2019-05-07 12:42] LABS: SODIUM 162 mmol/L (135-144)
[2019-05-07 15:59] LABS: ANION GAP 4 (5-13); BLOOD UREA NITROGEN 68 mg/dl (7-20); CALCIUM 9.2 mg/dl (8.4-10.2); CARBON DIOXIDE 29 mmol/L (21-31); CHLORIDE 130 mmol/L (97-110); CREATININE 1.46 mg/dl (0.61-1.24); GLUCOSE 193 mg/dl (70-220); POTASSIUM 3.8 mmol/L (3.5-5.1)
[2019-05-07 16:06] LABS: SODIUM 163 mmol/L (135-144)
[2019-05-07] MEDS: MEROPENEM 1 GM/50ML(PMX) 50 ML IVPB (16:48)
[2019-05-07] MEDS: LINEZOLID 600 MG/300 ML (PMX) 300 ML IVPB (18:00)
[2019-05-07 19:53] LABS: ANION GAP 3 (5-13); BLOOD UREA NITROGEN 62 mg/dl (7-20); CALCIUM 9.4 mg/dl (8.4-10.2); CARBON DIOXIDE 30 mmol/L (21-31); CHLORIDE 127 mmol/L (97-110); CREATININE 1.47 mg/dl (0.61-1.24); GLUCOSE 216 mg/dl (70-220); POTASSIUM 3.4 mmol/L (3.5-5.1); SODIUM 160 mmol/L (135-144)
[2019-05-07] MEDS: SENNA TAB GTB (20:27)
[2019-05-07] MEDS: ACETAMINOPHEN 650MG/20.3ML CUP GTB (20:27)
[2019-05-07] MEDS: INSULIN GLARGINE [LANTus] (100 UNITS/ML) SYG SC (20:55)
[2019-05-07 23:47] LABS: ANION GAP 3 (5-13); BLOOD UREA NITROGEN 56 mg/dl (7-20); CALCIUM 9.3 mg/dl (8.4-10.2); CARBON DIOXIDE 30 mmol/L (21-31); CHLORIDE 125 mmol/L (97-110); CREATININE 1.41 mg/dl (0.61-1.24); GLUCOSE 182 mg/dl (70-220); SODIUM 158 mmol/L (135-144)
[2019-05-08 00:20] LABS: POTASSIUM 3.2 mmol/L (3.5-5.1)
[2019-05-08] MEDS: MEROPENEM 1 GM/50ML(PMX) 50 ML IVPB ×3 (00:24→20:42)
[2019-05-08] MEDS: INSULIN ASPART [NOVOLOG] 3 ML PEN SC ×6 (01:00→20:41)
[2019-05-08] MEDS: DEXTROSE 5% 1,000 ML IV ×3 (01:15→23:00)
[2019-05-08] MEDS: LEVALBUTEROL (NEB) 0.63 MG/3 ML AMP HHN ×6 (01:25→20:12)
[2019-05-08 06:18] LABS: ABNORMAL IP MESSAGE 1; HEMATOCRIT 25.4 % (42.0-52.0); HEMOGLOBIN 7.4 g/dl (14.0-18.0); MEAN CORPUSCULAR HEMOGLOBIN 27.6 pg (29.0-33.0); MEAN CORPUSCULAR HGB CONC 29.1 g/dl (32.0-37.0); MEAN CORPUSCULAR VOLUME 94.8 fl (82.0-101.0); MEAN PLATELET VOLUME 13.3 fl (7.4-10.4); NUCLEATED RED BLOOD CELLS% 0.2 /100WBC (0.0-0.0); PLATELET COUNT 157 10^3/UL (140-415); POSITIVE DIFF @See below; RED BLOOD COUNT 2.68 10^6/ul (4.70-6.10)
[2019-05-08 06:18] LABS: WHITE BLOOD COUNT 12.2 10^3/ul (4.8-10.8)
[2019-05-08 06:44] LABS: PHOSPHORUS 2.7 mg/dl (2.5-4.9)
[2019-05-08 06:44] LABS: MAGNESIUM 2.5 mg/dl (1.7-2.5)
[2019-05-08 06:45] LABS: ALANINE AMINOTRANSFERASE 19 IU/L (13-69); ALBUMIN 2.3 g/dl (3.3-4.9); ALBUMIN/GLOBULIN RATIO 0.58; ALKALINE PHOSPHATASE 151 IU/L (42-121); ANION GAP 2 (5-13); ASPARTATE AMINO TRANSFERASE 27 IU/L (15-46); BILIRUBIN,INDIRECT 0.4 mg/dl (0-1.1); BILIRUBIN,TOTAL 0.4 mg/dl (0.2-1.3); BLOOD UREA NITROGEN 50 mg/dl (7-20); CALCIUM 9.1 mg/dl (8.4-10.2); CARBON DIOXIDE 31 mmol/L (21-31); CHLORIDE 123 mmol/L (97-110); GLUCOSE 187 mg/dl (70-220); POTASSIUM 3.3 mmol/L (3.5-5.1); SODIUM 156 mmol/L (135-144); TOTAL PROTEIN 6.2 g/dl (6.1-8.1)
[2019-05-08 06:48] LABS: ADD MAN DIFF? YES
[2019-05-08 07:04] LABS: SODIUM,URINE RANDOM 72 mmol/L (30-90)
[2019-05-08 07:04] LABS: POTASSIUM,URINE RANDOM 20.1 mmol/L (25-125)
[2019-05-08 08:54] LABS: OSMOLALITY,URINE 481 mOsm/kg (250-1200)
[2019-05-08] MEDS: FERROUS SULFATE 60 MG/ML 5ML CUP GTB ×3 (09:24→20:42)
[2019-05-08] MEDS: COLLAGENASE 5 GM (UD JAR) TOP ×2 (09:24→20:43)
[2019-05-08] MEDS: ZINC SULFATE 220 MG CAP GTB (09:25)
[2019-05-08] MEDS: POTASSIUM CHLORIDE 20 MEQ POWDER FOR ORAL SOLN GTB (09:25)
[2019-05-08 09:56] LABS: ANISOCYTOSIS 1+ (0-0); BAND NEUTROPHILS % (M) 17 % (0-4); EOSINOPHILS % (M) 2 % (0-7); LYMPHOCYTES #M 0.7 10^3/ul (0.8-2.9); LYMPHOCYTES % (M) 6 % (15-51); MICROCYTOSIS 1+ (0-0); MONOCYTE #M 0.3 10^3/ul (0.3-0.9); MONOCYTES % (M) 3 % (0-11); PLATELET ESTIMATE NORMAL; POIKILOCYTOSIS 1+ (0-0); POLYCHROMASIA 3+ (0-0); SEGMENTED NEUTROPHILS (M) % 72 % (39-77); SMUDGE%M 4 % (0-0)
[2019-05-08] MEDS: LINEZOLID 600 MG/300 ML (PMX) 300 ML IVPB ×2 (10:06→20:43)
[2019-05-08] MEDS ORDERED: VANCOMYCIN 1 GM 250 ML IVPB (14:00)
[2019-05-08 15:22] LABS: IMMEDIATE SPIN CROSSMATCH 1 2
[2019-05-08] MEDS: MUPIROCIN 2% 22 GM OINT TOP (20:42)
[2019-05-08] MEDS: SENNA TAB GTB (20:42)
[2019-05-08] MEDS: BALSAM PERU/CASTOR OIL 60 GM TUBE TOP (20:42)
[2019-05-08] MEDS: DAKINS 0.0125%(1/40) 473 ML SOLUTION TP (20:47)
[2019-05-08] MEDS: INSULIN GLARGINE [LANTus] (100 UNITS/ML) SYG SC (20:53)
[2019-05-09] MEDS: LEVALBUTEROL (NEB) 0.63 MG/3 ML AMP HHN ×6 (00:38→21:17)
[2019-05-09] MEDS: INSULIN ASPART [NOVOLOG] 3 ML PEN SC ×6 (01:59→21:13)
[2019-05-09 06:22] LABS: WHITE BLOOD COUNT 20.8 10^3/ul (4.8-10.8)
[2019-05-09 06:22] LABS: ABNORMAL IP MESSAGE 1; ANION GAP 4 (5-13); BLOOD UREA NITROGEN 38 mg/dl (7-20); CARBON DIOXIDE 26 mmol/L (21-31); CHLORIDE 119 mmol/L (97-110); CREATININE 0.95 mg/dl (0.61-1.24); GLUCOSE 172 mg/dl (70-220); HEMATOCRIT 33.6 % (42.0-52.0); HEMOGLOBIN 10.4 g/dl (14.0-18.0); MAGNESIUM 2.2 mg/dl (1.7-2.5); MEAN CORPUSCULAR HEMOGLOBIN 28.2 pg (29.0-33.0); MEAN CORPUSCULAR VOLUME 91.1 fl (82.0-101.0); NUCLEATED RED BLOOD CELLS% 0.1 /100WBC (0.0-0.0); PHOSPHORUS 2.2 mg/dl (2.5-4.9); POSITIVE DIFF @See below; RED BLOOD COUNT 3.69 10^6/ul (4.70-6.10); RED CELL DISTRIBUTION WIDTH 14.9 % (11.5-14.5); SODIUM 149 mmol/L (135-144)
[2019-05-09 06:23] LABS: ADD MAN DIFF? YES; PLATELET COUNT 115 10^3/UL (140-415)
[2019-05-09 06:25] LABS: POTASSIUM 4.2 mmol/L (3.5-5.1)
[2019-05-09] MEDS: FERROUS SULFATE 60 MG/ML 5ML CUP GTB ×3 (08:46→21:02)
[2019-05-09] MEDS: METOLAZONE 2.5 MG TAB PO (08:46)
[2019-05-09] MEDS: ZINC SULFATE 220 MG CAP GTB (08:46)
[2019-05-09] MEDS: MEROPENEM 1 GM/50ML(PMX) 50 ML IVPB ×2 (08:47→21:01)
[2019-05-09] MEDS: MUPIROCIN 2% 22 GM OINT TOP ×4 (09:12→21:00)
[2019-05-09] MEDS: LINEZOLID 600 MG/300 ML (PMX) 300 ML IVPB ×2 (10:21→21:01)
[2019-05-09] MEDS: ASCORBIC ACID 500 MG TAB PO (13:24)
[2019-05-09] MEDS: POTASSIUM PHOSPHATE 15 MM in SOD CHLORIDE 0.9% 250 ML IVPB (13:25)
[2019-05-09] MEDS: SOD CHLORIDE 0.9% 100 ML (14:13)
[2019-05-09] MEDS: IOHEXOL 100 ML (14:13)
[2019-05-09] MEDS: COLLAGENASE 5 GM (UD JAR) TOP ×2 (14:58→21:00)
[2019-05-09] MEDS: DAKINS 0.0125%(1/40) 473 ML SOLUTION TP ×2 (14:59→21:01)
[2019-05-09] MEDS: BALSAM PERU/CASTOR OIL 60 GM TUBE TOP ×2 (14:59→21:01)
[2019-05-09] MEDS: SENNA TAB GTB (21:02)
[2019-05-09] MEDS: INSULIN GLARGINE [LANTus] (100 UNITS/ML) SYG SC (21:13)
[2019-05-10] MEDS: LEVALBUTEROL (NEB) 0.63 MG/3 ML AMP HHN ×6 (01:28→21:20)
[2019-05-10] MEDS: INSULIN ASPART [NOVOLOG] 3 ML PEN SC ×6 (01:34→20:13)
[2019-05-10] MEDS: LEVOFLOXACIN 500 MG TAB PO (05:17)
[2019-05-10 05:59] LABS: WHITE BLOOD COUNT 18.1 10^3/ul (4.8-10.8)
[2019-05-10 06:00] LABS: HEMATOCRIT 28.9 % (42.0-52.0); HEMOGLOBIN 8.6 g/dl (14.0-18.0); MEAN CORPUSCULAR HEMOGLOBIN 27.6 pg (29.0-33.0); MEAN CORPUSCULAR HGB CONC 29.8 g/dl (32.0-37.0); MEAN CORPUSCULAR VOLUME 92.6 fl (82.0-101.0); MEAN PLATELET VOLUME 12.5 fl (7.4-10.4); PLATELET COUNT 201 10^3/UL (140-415); POSITIVE DIFF @See below; RED BLOOD COUNT 3.12 10^6/ul (4.70-6.10); RED CELL DISTRIBUTION WIDTH 14.6 % (11.5-14.5)
[2019-05-10 06:15] LABS: ADD MAN DIFF? YES
[2019-05-10 06:26] LABS: ANION GAP 4 (5-13); BLOOD UREA NITROGEN 40 mg/dl (7-20); CALCIUM 8.9 mg/dl (8.4-10.2); CARBON DIOXIDE 30 mmol/L (21-31); CHLORIDE 112 mmol/L (97-110); CREATININE 1.06 mg/dl (0.61-1.24); GLUCOSE 185 mg/dl (70-220); MAGNESIUM 2.3 mg/dl (1.7-2.5); POTASSIUM 3.6 mmol/L (3.5-5.1); SODIUM 146 mmol/L (135-144)
[2019-05-10] MEDS: MEROPENEM 1 GM/50ML(PMX) 50 ML IVPB (09:16)
[2019-05-10] MEDS: FERROUS SULFATE 60 MG/ML 5ML CUP GTB ×3 (09:24→20:14)
[2019-05-10] MEDS: ASCORBIC ACID 500 MG TAB PO (09:24)
[2019-05-10] MEDS: ZINC SULFATE 220 MG CAP GTB (09:24)
[2019-05-10 09:36] LABS: ANISOCYTOSIS 1+ (0-0); BAND NEUTROPHILS #M 2.8 10^3/ul (0.0-0.6); BAND NEUTROPHILS % (M) 16 % (0-4); GIANT THROMBO% (M) 3 % (0-0); LYMPHOCYTES #M 0.7 10^3/ul (0.8-2.9); LYMPHOCYTES % (M) 4 % (15-51); MONOCYTE #M 0.1 10^3/ul (0.3-0.9); MONOCYTES % (M) 1 % (0-11); OVALOCYTES 1+ (0-0); PLATELET ESTIMATE NORMAL; SEG NEUT #M 14.8 10^3/ul (1.6-7.5); SEGMENTED NEUTROPHILS (M) % 79 % (39-77); SMUDGE%M 1 % (0-0)
[2019-05-10] MEDS: DAKINS 0.0125%(1/40) 473 ML SOLUTION TP (11:03)
[2019-05-10] MEDS: BALSAM PERU/CASTOR OIL 60 GM TUBE TOP (11:04)
[2019-05-10] MEDS: COLLAGENASE 5 GM (UD JAR) TOP (11:04)
[2019-05-10] MEDS: MUPIROCIN 2% 22 GM OINT TOP ×2 (11:41)
[2019-05-10] MEDS: LINEZOLID 600 MG/300 ML (PMX) 300 ML IVPB (11:42)
[2019-05-10] MEDS: SOD CHLORIDE 0.9% 100 ML (13:36)
[2019-05-10] MEDS: IOHEXOL 100 ML (13:36)
[2019-05-10] MEDS: FUROSEMIDE 40 MG INJ IV (17:20)
[2019-05-10] MEDS: SENNA TAB GTB (20:14)
[2019-05-10] MEDS: INSULIN GLARGINE [LANTus] (100 UNITS/ML) SYG SC (20:35)
== END 2019-05-10 22:00 | DRG 871 ==
LOC: E/R 11:21 → 6WM 13:19
PROVIDERS: Internal Medicine
PROC: 30233N1 Transfusion of Nonautologous Red Blood Cells into Peripheral Vein, Percutaneous Approach (ICD-10-PCS; principal; 2019-05-07)
DX: A41.50 Gram-negative sepsis, unspecified (principal); L89.224 Pressure ulcer of left hip, stage 4; L89.154 Pressure ulcer of sacral region, stage 4; L89.523 Pressure ulcer of left ankle, stage 3; L89.893 Pressure ulcer of other site, stage 3; J96.01 Acute respiratory failure with hypoxia; G82.50 Quadriplegia, unspecified; J69.0 Pneumonitis due to inhalation of food and vomit; G93.40 Encephalopathy, unspecified; E87.3 Alkalosis; N17.9 Acute kidney failure, unspecified; E87.0 Hyperosmolality and hypernatremia; N39.0 Urinary tract infection, site not specified; D62 Acute posthemorrhagic anemia; J44.9 Chronic obstructive pulmonary disease, unspecified; E11.8 Type 2 diabetes mellitus with unspecified complications; E86.0 Dehydration; E11.22 Type 2 diabetes mellitus with diabetic chronic kidney disease; R13.10 Dysphagia, unspecified; Z93.1 Gastrostomy status; G30.1 Alzheimer's disease with late onset; F02.80 Dementia in other diseases classified elsewhere, unspecified severity, without behavioral disturbance, psychotic disturbance, mood disturbance, and anxiety; C61 Malignant neoplasm of prostate; D63.8 Anemia in other chronic diseases classified elsewhere; I12.9 Hypertensive chronic kidney disease with stage 1 through stage 4 chronic kidney disease, or unspecified chronic kidney disease; E78.5 Hyperlipidemia, unspecified; M19.90 Unspecified osteoarthritis, unspecified site; N18.9 Chronic kidney disease, unspecified; R00.0 Tachycardia, unspecified; Z79.4 Long term (current) use of insulin; Z87.891 Personal history of nicotine dependence; Z74.01 Bed confinement status
CPT/HCPCS: 36430; 36600; 71045; 80048; 80053; 80061; 81001; 82436; 82803; 82962; 83036; 83605; 83735; 83935; 84100; 84133; 84300; 84484; 85025; 85610; 85730; 86644; 86850; 86900; 86901; 86920; 87040-91; 87070; 87081; 87086; 89220; 93005; 93970; 94640; 94664; 96365; 96368; 99285-25